=== PATIENT | female | born 1970 | race Caucasian/White ===

== ENCOUNTER 2021-02-17 11:06 | Emergency (ER) | payer OTHER ==
--- OUTSIDE RECORDS SUMMARY | 2021-02-17 11:11 | XMS REPORT | Continuity of Care Document ---
:1970 Author Organization [facility] t Address [address] [place] [address] Care Team Providers Name Role Phone NO Primary Care Physician Unavailable Madisyn CONTRERAS, F Attending Clinician Margie HALL Attending Clinician Unavailable Gisel Betts MD Attending Clinician Gisel BETTS Attending Clinician Unavailable Isaiah PINEDA Attending Clinician Unavailable Payers Payer Name Policy Type Policy Number Effective Date Expiration Date S ource Problems Condition Condition Condition Status Onset Resolution Last Treating Co mments Source Name Details Category Date Date Treatment Clinician Date No known No known Disease Unive rs active active ity of problems problems [facility] Allergies, Adverse Reactions, Alerts Allergy Allergy Status Severity Reaction(s) Onset Inactive Treating Comm ents Source Name Type Date Date Clinician Ibuprofe Propensi Active Rash Univer s n ty to 03-03 ity of adverse 00:00: [place] reaction 00 [facility] IBUPROFE DRUG Active Rash Univers N INGREDI 03-03 ity of 00:00: [place] 00 [facility] NO KNOWN Drug Active Univers ALLERGIE Class ity of S [facility] Social History Social Habit Start Date Stop Date Quantity Comments Source Sex Assigned At Universit y of [facility] Exposure to Not sure [place] of SARS-CoV-2 (event) [facility] Cigarettes smoked 2020-03-03 2020-03-03 Univers ity of current (pack per 00:00:00 00:00:00 ) - Reported Branch Cigarette 2020-03-03 2020-03-03 University of pack-years 00:00:00 00:00:00 [facility] Tobacco use and 2020-03-03 2020-03-03 Former user Universi ty of exposure 00:00:00 00:00:00 [facility] Alcohol intake 2020-03-03 2020-03-03 Ex-drinker [facility] 00:00:00 00:00:00 (finding) [facility] Smoking Status Start Date Stop Date Source Current every day smoker 2020-03-03 00:00:00 Uni versity [facility] [place] [facility] Medications Ordered Filled Start Stop Current Ordering Indication Dosage Frequency Signature Comments Components Source Medication Medication Date Date Medication? Clinician (SIG) Name Name benzonatate Yes [id number] 100mg Take 1 Univers 100 mg 1-22 capsule by ity of capsule 00:00: mouth 3 [place] 00 (three) Medical times Branch daily as needed for Cough. albuterol Yes [id number] 2{puff} Inhale 2 Univers 90 1-22 Puffs ity of mcg/actuati 00:00: every 4 [place] as on inhaler 00 (four) Medical hours as Branch needed for Wheezing or Shortness of Breath. diphenhydrA 2020- No 25mg 25 mg, Uni vers MINE 09-10 Slow IV ity of (BENADRYL) 17:45: 16:36 Push, [place] injection 00 :00 ONCE, 1 Medical 25 mg dose, Sat Branch 09/11/19 at 1245, STAT haloperidol 2020- No 2.5mg 2.5 mg, U nivers lactate 09-10 Intravenou ity o f (HALDOL) 17:45: 16:41 [place], [place]CE[place] 1 [place] :[place] dose, Sat Medic al 2.5 mg 09/11/19 at Branch 1245, STAT famotidine 2020- No 20mg 20 mg, IV U nivers (PEPCID 09-10 Piggyback, ity o f (PF)) 16:45: 16:37 ONCE, 1 [place] injection 00 :00 dose, Sat Medic al 20 mg 09/11/19 at Branch 1145, GAGE NaCl 0.9% 2020- No 1000mL at 999 Uni vers (NS) bolus 09-10 mL/hr, ity of infusion 16:45: 18:00 1,000 mL, [place] as 1,000 mL 00 :00 IV Medical Infusion, Branch ONCE, 1 dose, 09/11/19 at 1145, GAGE buprenorphi 2019- Yes 16mg Place 16 Un keon ne-naloxone 8-01 mg under ity of 8-2 mg 16:34: the tongue [place] sublingual 41 daily. Medical film Branch cloNIDine 2020-0 Yes .2mg Take 0.2 Univ ers 0.2 mg 8-01 mg by ity of tablet 16:34: mouth 2 [place] 41 (two) Medical times Branch daily. QUEtiapine 2020-0 Yes 50mg Take 50 mg U nivers 50 mg 8-01 by mouth ity of tablet 16:34: daily. [place] [address] Medical Branch mirtazapine 2020-0 Yes 15mg Take 15 mg Univers 15 mg 8-01 by mouth ity of tablet 16:34: at [place] [address] bedtime. Medical Branch lithium 2020-0 Yes 900mg Take 900 Unive rs carbonate 8-01 mg by ity of 300 mg 16:34: mouth [place] tablet 41 daily. Medical Branch venlafaxine 2020-0 Yes 37.5mg Take 37.5 Univers XR 37.5 mg 8-01 mg by ity of 24 hr 16:34: mouth [place] capsule 41 daily with Medica l breakfast. Branch LORazepam 2020-0 Yes .5mg Take 0.5 Univ ers 0.5 mg 8-01 mg by ity of tablet 16:34: mouth 2 [place] 41 (two) Medical times Branch daily. haloperidol 2020-0 Yes .5mg Take 0.5 Un keon 0.5 mg 8-01 mg by ity of tablet 16:34: mouth [place] 41 daily. Medical Branch buprenorphi 2020-[address] 16 Un keon ne-naloxone 8-01 mg under ity of 8-2 mg 16:34: the tongue [place] sublingual 41 daily. Medical film Branch cloNIDine 2020-0 Yes .2mg Take 0.2 Univ ers 0.2 mg 8-01 mg by ity of tablet 16:34: mouth 2 [place] 41 (two) Medical times Branch daily. QUEtiapine 2020-0 Yes 50mg Take 50 mg U nivers 50 mg 8-01 by mouth ity of tablet 16:34: daily. [place] [address] Medical Branch mirtazapine 2020-0 Yes 15mg Take 15 mg Univers 15 mg 8-01 by mouth ity of tablet 16:34: at [place] [address] bedtime. Medical Branch lithium 2020-0 Yes 900mg Take 900 Unive rs carbonate 8-01 mg by ity of 300 mg 16:34: mouth [place] tablet 41 daily. Medical Branch venlafaxine 2020-0 Yes 37.5mg Take 37.5 Univers XR 37.5 mg 8-01 mg by ity of 24 hr 16:34: mouth [place] capsule 41 daily with Medica l breakfast. Branch LORazepam 2020-0 Yes .5mg Take 0.5 Univ ers 0.5 mg 8-01 mg by ity of tablet 16:34: mouth 2 [place] 41 (two) Medical times Branch daily. haloperidol 2020-0 Yes .5mg Take 0.5 Un keon 0.5 mg 8-01 mg by ity of tablet 16:34: mouth [place] 41 daily. Medical Branch famotidine 2020-0 Yes [id number] 20mg Take 1 Univers 20 mg 8-01 tablet by ity of tablet 00:00: mouth 2 [place] 00 (two) Medical times Branch daily. proMETHazin 2020-0 Yes [id number] 25mg Take 1 Univers e 25 mg 8-01 tablet by ity of tablet 00:00: mouth [place] 00 every 6 Medical (six) Branch hours as needed for Nausea and Vomiting (N/V). famotidine 2020-0 Yes [id number] 20mg Take 1 Univers 20 mg 8-01 tablet by ity of tablet 00:00: mouth 2 [place] 00 (two) Medical times Branch daily. proMETHazin 2020-0 Yes [id number] 25mg Take 1 Univers e 25 mg 8-01 tablet by ity of tablet 00:00: mouth [place] 00 every 6 Medical (six) Branch hours as needed for Nausea and Vomiting (N/V). Cefdinir Cefdinir 2019-0 Yes Grant L [address] [facility] (Omnicef) (Omnicef) 8 Mohan Supervisor Insecticide [facility] - 300 Mg 300 Mg 00:00: Patient Capsule Capsule 00 [facility] Ondansetron Ondansetron 2019-0 Yes Grant L [address] [facility] Hcl Hcl 8-04 Mohan Supervisor Insecticide Hours as [facility] - (Zofran*) 4 (Zofran*) 4 00:00: needed for Patient Mg Tablet Mg Tablet 00 Nausea [facility] Benztropine Benztropine Yes [address] [facility] Mesylate 2 Mesylate 2 Day Mery es - Mg Tablet Mg Tablet Patie nt [facility] Buprenorphi Buprenorphi Yes [address] [facility] - Hcl/Naloxon Hcl/Naloxon P atient e Hcl e Hcl s (Suboxone 8 (Suboxone 8 M edical Mg-2 Mg Sl Mg-[address] Film) 1 Film) 1 Each Film Each Film Clonidine Clonidine Yes [address] [facility] Hcl 0.1 Mg Hcl 0.1 Mg Day Mery es - Tablet Tablet Patient [facility] Keener Keener Yes [address] [facility] Carbonate Carbonate [facility] - 450 Mg 450 Mg Patient Tablet.er Tablet.er s Medical [place] Mirtazapine Mirtazapine Yes [address] [facility] (Remeron) (Remeron) [facility] - 15 Mg 15 Mg Patient Tablet [facility]t [facility] Oxcarbazepi Oxcarbazepi Yes [address] [facility] - (Trileptal) (Trileptal) P atient 300 Mg 300 Mg s Tablet [facility] Quetiapine Quetiapine Yes [address] [facility] Fumarate Fumarate [facility] - (Seroquel) (Seroquel) Pat ient 25 Mg 25 Mg s Tablet Tablet Medical [place] Vital Signs Vital Name Observation Time Observation Value Comments Source Systolic blood 2020-03-03 18:05:00 130 mm[Hg[facility]astolic blood 2020-03-03 18:05:00 89 mm[Hg] Unive [facility] Heart rate 2020-03-03 18:05:00 99 /min [facility] Respiratory rate 2020-03-03 18:05:00 17 /min [facility] Oxygen saturation in 2020-03-03 18:05:00 99 /min [facility] Arterial blood by [facility] Pulse oximetry Branch Body temperature 2020-03-03 15:55:00 37.06 Leida [facility] Body weight 2020-03-03 15:53:00 54.432 kg [facility] Systolic blood 2019-09-11 17:07:31 137 mm[Hg] Univer sity [facility] Diastolic blood 2019-09-11 17:07:31 91 mm[Hg] Unive [facility] Heart rate 2019-09-11 17:07:31 98 /min [facility] Body temperature 2019-09-11 17:07:31 37.17 Leida [facility] Respiratory rate 2019-09-11 17:07:31 22 /min [facility] Oxygen saturation in 2019-09-11 17:07:31 98 /min [facility] Arterial blood by [facility] Pulse oximetry Branch Body weight 2019-09-11 16:34:00 50 kg [facility] Procedures Procedure Date / Time Performed Performing Clinician Sourc e XR CHEST 2 VW 2020-03-03 16:39:10 Juanis Hall [facility] POCT TEST 2020-03-03 16:16:00 Juanis Hall [facility] COVID-19 (ID NOW RAPID 2020-03-03 16:16:00 [facility] CBC WITH DIFF 2019-09-11 17:23:[address] [facility] TROPONIN I 2019-09-11 17:01:[address] [facility] XR ABDOMEN ACUTE 2019-09-11 16:59:22 Yasmin Betts [facility] SERIES [facility] EKG-12 LEAD 2019-09-11 16:49:[address] [facility] LIPASE 2019-09-11 16:42:[address] [facility] TEST, SERUM 2019-09-11 16:42:00 Yasmin Betts [facility] HEPATIC FUNCTION PANEL 2019-09-11 16:42:00 Yasmin Betts [facility] ([id number]) Medical [place] (ALB,T.PRO,BILI T,BU/BC,ALT,AST,ALK PHOS) BASIC METABOLIC PANEL 2019-09-11 16:42:00 Yasmin Betts [facility] (NA, K, CL, CO2, Medical Branch GLUCOSE, BUN, CREATININE, CA) LITHIUM 2019-09-11 16:42:[address] [facility] Computed tomography of 2018-09-13 00:00:[address] [facility] - abdomen and pelvis Patients [facility] with contrast Center Encounters Start End Encounter Admission Attending Care Care Encounter Source Date/Time Date/Time Type Type Clinicians Facility Department ID 2020-03-03 2020-03-03 Emergency Ibikunle, TRAUMA [id number] Univers 09:55:00 12:07:00 Folusho F CENTER [id number] [place] [id number] [place] [address] Branch 2020-03-03 2020-03-03 Emergency X IBJUNIOR, [facility] ERT [id number] Univers 09:55:00 09:55:00 FOLUSHO ity of [facility] 2019-09-11 2019-09-11 Emergency Yasmin Betts TRAUMA [id number] Univers 11:27:00 14:04:00 W CENTER [id number] [place] [id number] [place] [address] Branch 2019-09-11 2019-09-11 Emergency X YASMIN BETTS [facility] ERT [id number] Univers 11:27:00 11:27:00 ity of [facility] 2018-09-13 2018-09-13 Departed 1 [facility] [id number] [facility] [facility] 11:09:00 18:00:00 Emergency LAIRD 94 Luke s - Room Patient s [facility] Center Results Test Description Test Time Test Comments Results Result Comments Source COVID-19 (ID NOW RAPID TESTING) 2020-03-03 17:05:00 Test Item Value Reference Range Interpretation Comme nts SARS-CoV-2 Rapid ID NOW (test code Not Detected Not Detected = 00965-0) SHALOM (test code = SHALOM) ID NOW COVID-19 Assay is an isothermal nucleic acid amplification test intended for the qualitative detection of nucleic acid from SARS-CoV-2 viral RNA in nasopharyngeal ([employer]) specimens. It is used under Emergency Use Authorization (EUA) by FDA. The limit of detection (LOD) of the assay is 125 Genome Equivalents/mL. A positive result is indicative of the presence of SARS-CoV-2 RNA. ?Clinical correlation with patient history and other diagnostic information is necessary to determine patient infection status. A negative (Not Detected) result does not preclude SARS-CoV-2 infection. In patients with clinical symptoms and other tests that are consistent with SARS-CoV-2 infection, negative results should be treated as presumptive negative and a new specimen should be tested with alternative PCR molecular test. Invalid: Please collect a new specimen for repeat patient testing if clinically indicated. Lab Interpretation (test code = Normal 40193-7) [place] [facility] [id number] 16:16:00 Test Item Value Reference Range Interpretation Comments POCT PREG (test code = 1605) negative On board controls acceptable with present C Line (test code = 3574) POCT PREG LOT # (test code = 3575) [id number] POCT PREG TEST DATE (test 10/10/2021 code = 3576) Lab Interpretation (test code = Normal 25696-2) [place] [facility] Abdomen [id number] 18:23:32 No acute cardiopulmonary process. Nonobstructive bowel gas pattern. XR ABDOMEN ACUTE SERIES HISTORY: vomiting, eval for obstruction COMPARISON: None available. FINDINGS: Chest: Lungs are mildly hyperinflated. No focal consolidation identified.There may be trace right-sided effusion. No effusion seen on the left. Nopneumothorax identified. Cardiac silhouette normal in size. Atherosclerotic calcification is notedin the aortic arch. Trachea is near midline. Abdomen: Bowel gas pattern is nonobstructive. No free air under thediaphragm. Mild gaseous distention of small bowel loops is noted in thepelvi s. There is fecal material noted throughout the colon, probablymoderate fecal burden. Cholecystectomy clips seen in the right upper quadrant. No suspiciouscalcification identified. [facility], Radiant Results Inft User - 09/11/2019 1:24 PM CDTXR ABDOMEN ACUTE SERIESHISTORY: vomiting, eval for obstruction CO MPARISON: None available.FINDINGS:Chest: Lungs are mildly hyperinflated. No focal consolidation identified.There may be trace right-sided effusion. No effusion seen on the left. Nopneumothorax identified.Cardiac silhouette normal in size. Atherosclerotic calcification is notedin the aortic arch. Trachea is near midline.Abdomen: Bowel gas pattern is nonobstructive. No free air under thediaphragm. Mildgaseous distention of small bowel loops is noted in thepelvis. There is fecal material noted throughout the colon, probablymoderate fecal burden.Cholecystectomy clips seen in the right upper quadrant. No suspiciouscalcification identified.IMPRESSIONNo acute cardiopulmonary process.Nonobstructive bowelgas pattern.[facility] Troponin [id number] 17:47:00 Test Item Value Reference Range Interpretation Comments TROPONIN I (test 0.013 ng/mL See_Comment [Automated code = 1477255465) message] The system which generated this result transmitted reference range : <=0.034. The reference range was not used to interpret this result as normal/abnormal . SHALOM (test code = Equal or Less than SHALOM) 0.034 ng/ml---Normal ?Note: Cardiac troponin begins to rise 3-4 hours after the onset of ischemia. Repeat in 4-6 hours if the sample was drawn within 3-4 hours of the onset of the symptom and found normal. Between 0.035 and 0.120 ng/mL--- Borderline. Questionable myocardial injury or necrosis ? ?Note: Serial measurement may be necessary to confirm or exclude the diagnosis of myocardial injury or necrosis; Clinical correlation (symptoms, EKGs, imaging studies, and others) required; Repeat in 4-6 hours if clinically indicated. ? Equal or Higher than 0.121 ng/mL---Abnormal. Myocardial Injury or Necrosis Likely ? Biotin has been reported to cause a negative bias, interpret results relative to patient's use of biotin. ? Lab Interpretation Normal (test code = 61235-2) [place] [facility]neCB with [id number] 17:39:00 Test Item Value Reference Range Interpretation Comments WBC (test code = See_Comment [Automated 1490-2) message] The sy stem which generated this result transmitted reference range : 4.30 - 11.10 10*3/?L. The reference range was not used to interpret this result as normal/abnormal . RBC (test code = See_Comment [Automated 789-8) message] The sy stem which generated this result transmitted reference range : 3.93 - 5.25 10*6/?L. The reference range was not used to interpret this result as normal/abnormal . HGB (test code = 16.6 g/dL 11.6-15 H 718-7) HCT (test code = 47.7 % 35.7-45.2 H 4544-3) MCV (test code = 91.2 fL 80.6-95.5 787-2) MCH (test code = 31.7 pg 25.9-32.8 785-6) MCHC (test code = 34.8 g/dL 31.6-35.1 786-4) RDW-SD (test code = 43.0 fL 39-49.9 62808-5) RDW-CV (test code = 12.9 % 12-15.5 788-0) PLT (test code = See_Comment [Automated 777-3) message] The sy stem which generated this result transmitted reference range : 166 - 358 10*3/ ?L. The reference r jenn was not used to interpret this result as normal/abnormal . MPV (test code = 11.7 fL 9.5-12.9 25577-1) NRBC/100 WBC (test See_Comment [Automat ed code = 0735417805) message] The system which generated this result transmitted reference range : 0.0 - 10.0 /100 WBCs. The refer ence range was not u sed to interpret th is result as normal/abnormal . NRBC x10^3 (test code <0.01 See_Comment [Auto mated = 2276834514) message] The s ystem which generated this result transmitted reference range : 10*3/?L. The reference range was not used to interpret this result as normal/abnormal . GRAN MAT (NEUT) % 73.1 % (test code = 770-8) IMM GRAN % (test code 0.20 % = 3183614989) LYMPH % (test code = 17.1 % 736-9) MONO % (test code = 8.2 % 5905-5) EOS % (test code = 0.6 % 713-8) BASO % (test code = 0.8 % 706-2) GRAN MAT x10^3(ANC) 6.47 10*3/uL 1.88-7.09 (test code = 0425129799) IMM GRAN x10^3 (test <0.03 0-0.06 code = 8776302818) LYMPH x10^3 (test code 1.51 10*3/uL 1.32-3.29 = 731-0) MONO x10^3 (test code 0.73 10*3/uL 0.33-0.92 = 742-7) EOS x10^3 (test code = 0.05 10*3/uL 0.03-0.39 711-2) BASO x10^3 (test code 0.07 10*3/uL 0.01-0.07 = 704-7) Lab Interpretation Abnormal (test code = 18780-5) [place] [facility]2020-08-01 17:34:00 Test Item Value Reference Range Interpretation Comments Keener (test code = <0.2 0.6-1.2 L 8320801835) SHALOM (test code = SHALOM) Toxic Range: ? Greater than 1.2 mmol/L Lab Interpretation (test Abnormal code = 30193-3) [place] [facility]neHepatic Function Panel (ALB, T.PRO, BILI T, BU/BC, ALT, AST, ALK PHOS)2019-09-11 17:20:00 Test Item Value Reference Range Interpretation Comments TOTAL BILI (test code = 8456608928) 0.6 mg/dL 0.1-1.1 BILI UNCON (test code = 4040894100) 0.7 mg/dL 0.1-1.1 BILI CONJ (test code = 5255370795) 0.0 mg/dL 0-0.3 T PROTEIN (test code = 1255152211) 7.9 g/dL 6.3-8.2 ALBUMIN (test code = 4588237228) 4.9 g/dL 3.5-5 ALK PHOS (test code = 0283831347) 106 U/L 34-122 ALTv (test code = 1742-6) 70 U/L 5-35 H AST(SGOT) (test code = 8270790778) 85 U/L 13-40 H Lab Interpretation (test code = Abnormal 08853-7) [place] [facility] Met[facility] Panel (NA, K, CL, CO2, GLUCOSE, BUN, CREATININE, CA)2019-09-11 17:20:00 Test Item Value Reference Range Interpretation Comments NA (test code = 137 mmol/L 135-145 7963817142) K (test code = 4.2 mmol/L 3.5-5 3306320559) CL (test code = 105 mmol/L 98-108 8243374053) CO2 TOTAL (test code = 26 mmol/L 23-31 5668198910) AGAP (test code = 2-16 6158770585) BUN (test code = 15 mg/dL 7-23 1762207352) GLUCOSE (test code = 127 mg/dL 70-110 H 7612285603) CREATININE (test code = 0.55 mg/dL 0.5-1.04 7373904319) CALCIUM (test code = 10.4 mg/dL 8.6-10.6 5064330528) eGFR Calculation mL/min/1.73m2 (Non-) (test code = 6949867691) eGFR Calculation mL/min/1.73m2 () (test code = 1720929596) SHALOM (test code = SHALOM) Association of Glomerular Filtration Rate (GFR) and Staging of Kidney Disease* + --+ --+ ------+| GFR (mL/min/1.73 m2) ?| With Kidney Damage ?| ?Without Kidney Damage+ --------+ --------+ +| ?>90 ?| ?Stage one ?| ? Normal ?+ ---+ ---+ -------+| ?60-89 ?| ?Stage two ?| ? Decreased GFR ? + --+ --+ ------+| ?30-59 ?| ?Stage three ?| ? Stage three ? + --+ --+ ------+| ?15-29 ?| ?Stage four ? | ? Stage four ?+ ---+ ---+ -------+| ?<15 (or dialysis) ? ?| ?Stage five ? | ? Stage five ?+ ---+ ---+ -------+ *Each stage assumes the associated GFR level has been in effect for at least three months. ?Stages 1 to 5, with or without kidney disease, indicate chronic kidney disease. Notes: Determination of stages one and two (with eGFR >59mL/min/1.73 m2) requires estimation of kidney damage for at least three months as defined by structural or functional abnormalities of the kidney, manifested by either:Pathological abnormalities or Markers of kidney damage (including abnormalities in the composition of the blood or urine or abnormalities in imaging tests). Lab Interpretation Abnormal (test code = 95676-6) [place] [facility]neLipase [id number] 17:20:00 Test Item Value Reference Range Interpretation Comments LIPASE (test code = 3204095425) 106 U/L 0-220 Lab Interpretation (test code = Normal 91426-7) [place] [facility]nePregnancy Test, [id number] 17:15:00 Test Item Value Reference Range Interpretation Comments PREG SERUM (test code Negative = 7560824990) SHALOM (test code = SHALOM) Less than 10 IU/L. ?If low titer or ectopic is suspected, resubmit specimen in 48-72 hours. [facility] SINGLE (PORTABLE)2018-09-13 16:05:00 [place] [address] Patient Name: CECI GRAHAM MR #: [id number] : 1970 Age/Sex: 48/F Req #: [id number] Adm Physician: Ordered by: GRANT MOHAN [employer] Report #: [id number] Location: ER Room/Bed: Procedure: [id number] DX/CHEST SINGLE (PORTABLE) Exam Date: 09/13/18 Exam Time: 1514 REPORT STATUS: Signed EXAMINATION: CHEST SINGLE (PORTABLE) INDICATION: cough, rule out pneumonia [id number] COMPARISON: None FINDINGS: PA and lateral views TUBES and LINES: None. LUNGS: Lungs are well inflated. Thereis no evidence of pneumonia or pulmonary edema. PLEURA: Trace blunting of the right lateral costophrenic angle. No pneumothorax. HEART AND MEDIASTINUM: The cardiomediastinal silhouette is unremarkable.. BONES AND SOFT TISSUES: No focal osseous lesions. Soft tissues are unrem arkable. UPPER ABDOMEN: No free air under the diaphragm. IMPRESSION: Trace blunting ofthe right lateral costophrenic angle may be the result of developing pleural effusion. No infiltrates. Signed by: Dr. Celestina Polanco MD on 09/13/2018 4:07 PM Dictated By: CELESTINA POLANCO MD 06 Transcribed By: BENI on 09/13/181606 COPY TO: GRANT MOHAN NPCT ABDOMEN/PELVIS W 2018-09-13 14:45:00 [place] [address] Patient Name: CECI GRAHAM MR #: [id number] : 1970 Age/Sex: 48/F Req #: [id number] Adm Physician: Ordered by: GRANT MOHAN [employer] Report #: [id number] Location: ER Room/Bed: Procedure: [id number] CT/CT ABDOMEN/PELVIS W Exam Date: 09/13/18 Exam Time: 1415 REPORT STATUS: Signed ADDENDUM #1 Subcentimeter air cyst in the right lower lobe. Signed by: Dr. Celestina Polanco MD on 09/13/2018 4:[address] Abdomen And Pelvis with Intravenous Contrast INDICATION: Nausea, vomiting upper abdominal pain, n/v/d, rule out colitis [id number] TECHNIQUE: Thin collimation axial images obtained from the diaphragm to the level of the pubic symphysisfollowing the uneventful administration of 100 cc of low osmolar, nonionic intravenous contrast. Dose reduction techniques used: Automated exposure control, adjustment of the mAs and/or kVp according to patient size, standardized low- dose protocol, and/or iterative reconstruction technique. RADIATION DOSE: Total DLP: 170.33 mGy*cm Estimated effective dose: (DLP x0.015 x size factor) mSv CTDIvol has been reviewed. It is below the limits set by the Radiation Protocol Committee (RPC). COMPARISON: None. ABDOMEN FINDINGS: Lung Bases: Clear. The visualized portions of the mediastinum are normal.. Liver: Mildly decreased attenuation suggestive of steatosis. No evidence for mass. Gallbladder: Absent. No biliary ductal dilatation. Pancreas: Normal attenuation without mass or ductal dilatation. Divisum morphology of the pancreas duct. Spleen: Normal in size. No evidence of mass. Adrenal Glands: No evidence formass. Kidneys: Right: Normal enhancement. No soft tissue mass. No hydronephrosis. Left: Normal enhancement. No soft tissue mass. No hydronephrosis. Lymph Nodes: No enlarged abdominal or retroperitoneal lymph nodes.. Aorta: Normal in diameter with scattered calcifications PELVIS FINDINGS: Bowel: Stomach: Normal. Small Bowel: Normal in caliber with normal wall thickness. Large Bowel: Normal in caliber with normal wall thickness. Appendix: Normal appendix. Bladder: Normal. The uterus is absent. No adnexal mass. Peritoneum/or peritoneum: No free fluid or fluid collection. Bones: No focal osseous lesions. IMPRESSION: 1. No evidence for bowel obstruction or inflammation. Normal appendix. 2. Status post cholecys tectomy and hysterectomy. 3. Pancreas divisum. 4. Steatosis. Signed by: Dr. Celestina Polanco MD on 09/13/2018 2:49 PM Dictated By: CELESTINA POLANCO MD 1602 Transcribed By: BENI on 09/13/18 4854 COPY TO: GRANT MOHAN NPSodium [id number] 12:25:00 Test Item Value Reference Range Interpretation Comments Sodium Level (test code = 2951-2) 139 136-145 [facility] [id number] 12:25:00 Test Item Value Reference Range Interpretation Comments Potassium Level (test code = 2823-3) 3.3 3.5-5.1 L [facility]iscoChloride [id number] 12:25:00 Test Item Value Reference Range Interpretation Comments Chloride Level (test code = 2075-0) 103 98-107 [facility] FriscoCarbon Dioxide [id number] 12:25:00 Test Item Value Reference Range Interpretation Comments Carbon Dioxide Level (test code = 22 -8-9) [facility] FriscoAnion [id number] 12:25:00 Test Item Value Reference Range Interpretation Comments Anion Gap (test code = 21388-0) 17.3 8-16 H [facility] FriscoBlood Urea [id number] 12:25:00 Test Item Value Reference Range Interpretation Comments Blood Urea Nitrogen (test code = 09-04 3094-0) [facility]iscoCreatinine2019-08-04 12:25:00 Test Item Value Reference Range Interpretation Comments Creatinine (test code = 2160-0) 0.78 0.57-1.11 [facility]iscoBUN/Creatinine [id number] 12:25:00 Test Item Value Reference Range Interpretation Comments BUN/Creatinine Ratio (test code = 08-04 3097-3) [facility] FriscoEstimat Glomerular Filtration Rate 2018-09-13 12:25:00 Test Item Value Reference Range Interpretation Comments Estimat Glomerular Filtration Rate > 60 >60 (test code = 753575460) Ranges were taken from the National Kidney Disease Education Program and the National Kidney Foundation literature.Reference ranges:60 or greater: Ajywbl15- 59 (for 3 consecutive months): Chronic kidneydisease 15 or less: Kidney failure [facility] FriscoGlucose [id number] 12:25:00 Test Item Value Reference Range Interpretation Comments Glucose Level (test code = LIB9787) 143 74-118 H [facility] FriscoCalcium [id number] 12:25:00 Test Item Value Reference Range Interpretation Comments Calcium Level (test code = 39200-6) 10.1 8.4-10.2 [facility] FriscoMagnesium [id number] 12:25:00 Test Item Value Reference Range Interpretation Comments Magnesium Level (test code = 63211-5) 2.3 1.3-2.1 H [facility]iscoT[facility] [id number] 12:25:00 Test Item Value Reference Range Interpretation Comments Total Bilirubin (test code = 1975-2) 0.7 0.2-1.2 [facility] FriscoAspartate Amino Transf (AST/SGOT) 2018-09-13 12:25:00 Test Item Value Reference Range Interpretation Comments Aspartate Amino Transf (AST/SGOT) (test 24 5-34 code = Aspartate Amino Transf (AST/SGOT)) [facility] FriscoAlanine Aminotransferase (ALT/SGPT) 2018-09-13 12:25:00 Test Item Value Reference Range Interpretation Comments Alanine Aminotransferase (ALT/SGPT) 24 0-55 (test code = 1742-6) [facility] FriscoTotal [id number] 12:25:00 Test Item Value Reference Range Interpretation Comments Total Protein (test code = 2885-2) 7.2 6.5-8.1 [facility] FriscoAlbumin2019-08-04 12:25:00 Test Item Value Reference Range Interpretation Comments Albumin (test code = 1751-7) 4.2 3.5-5.0 [facility] FriscoGlobulin2019-08-04 12:25:00 Test Item Value Reference Range Interpretation Comments Globulin (test code = 07687-8) 3.0 2.3-3.5 [facility] FriscoAlbumin/Globulin [id number] 12:25:00 Test Item Value Reference Range Interpretation Comments Albumin/Globulin Ratio (test code = 1.4 0.8-2.0 1759-0) [facility] FriscoAlkaline Ojfbtlpmkik2733-92-76 12:25:00 Test Item Value Reference Range Interpretation Comments Alkaline Phosphatase (test code = 81 40-150 6768-6) [facility] FriscoAmylase [id number] 12:25:00 Test Item Value Reference Range Interpretation Comments Amylase Level (test code = 1798-8) 84 25-125 [facility] FriscoLipase2019-08-04 12:25:00 Test Item Value Reference Range Interpretation Comments Lipase (test code = 3040-3) 18 8-78 [facility] FriscoUrine Pmnhc1824-35-09 11:53:00 Test Item Value Reference Range Interpretation Comments Urine Color (test code = 5778-6) YELLOW YELLOW [facility] FriscoUrine [id number] 11:53:00 Test Item Value Reference Range Interpretation Comments Urine Clarity (test code = 09154-6) SL CLOUDY CLEAR [facility] Specific [id number] 11:53:00 Test Item Value Reference Range Interpretation Comments Urine Specific Mousie (test code = 1.015 1.010-1.025 5811-5) [facility]iscoUrine [id number] 11:53:00 Test Item Value Reference Range Interpretation Comments Urine pH (test code = 55455-5) 7 5-7 [facility]iscoUrine Leukocyte [id number] 11:53:00 Test Item Value Reference Range Interpretation Comments Urine Leukocyte Esterase (test code NEGATIVE NEGATIVE = 5799-2) [facility]iscoUrine Blulvkr4665-90-47 11:53:00 Test Item Value Reference Range Interpretation Comments Urine Nitrite (test code = 34041-6) NEGATIVE NEGATIVE [facility] FriscoUrine [id number] 11:53:00 Test Item Value Reference Range Interpretation Comments Urine Protein (test code = 5804-0) 2+ NEGATIVE H [facility] FriscoUrine Glucose (UA)2018-09-13 11:53:00 Test Item Value Reference Range Interpretation Comments Urine Glucose (UA) (test code = NEGATIVE NEGATIVE 2349-9) [facility]iscoUrine [id number] 11:53:00 Test Item Value Reference Range Interpretation Comments Urine Ketones (test code = 05458-5) NEGATIVE NEGATIVE [facility] Npftjtevslkx4032-08-53 11:53:00 Test Item Value Reference Range Interpretation Comments Urine Urobilinogen (test code = 0.2 0.2-1 16862-1) [facility] FriscoUrine Uqbvvqvqx1378-65-18 11:53:00 Test Item Value Reference Range Interpretation Comments Urine Bilirubin (test code = 1978-6) NEGATIVE NEGATIVE [facility] FriscoUrine [id number] 11:53:00 Test Item Value Reference Range Interpretation Comments Urine Blood (test code = 92217-2) TRACE NEGATIVE H [facility] FriscoUrine [id number] 11:53:00 Test Item Value Reference Range Interpretation Comments Urine WBC (test code = 5821-4) 11-20 0-5 H [facility] FriscoUrine [id number] 11:53:00 Test Item Value Reference Range Interpretation Comments Urine RBC (test code = 40044-3) 11-20 0-5 H [facility]iscoUrine Vqouvkhj5757-95-07 11:53:00 Test Item Value Reference Range Interpretation Comments Urine Bacteria (test code = 95175-4) FEW NONE [facility] FriscoUrine Epithelial [id number] 11:53:00 Test Item Value Reference Range Interpretation Comments Urine Epithelial Cells (test code = FEW NONE 81677-2) [facility] FriscoUrine [id number] 11:53:00 Test Item Value Reference Range Interpretation Comments Urine Test (test code = NEGATIVE NEGATIVE 6-3) [facility] FriscoMean Corpuscular Hemoglobin Concent 2018-09-13 11:45:00 Test Item Value Reference Range Interpretation Comments Mean Corpuscular Hemoglobin Concent 35.1 31-35 H (test code = 786-4) [facility] FriscoRed Cell Distribution Apzcy1441-03-03 11:45:00 Test Item Value Reference Range Interpretation Comments Red Cell Distribution Width (test code 13.5 11.7-14.4 = 78468-7) [facility] FriscoPlatelet [id number] 11:45:00 Test Item Value Reference Range Interpretation Comments Platelet Count (test code = 777-3) 318 140-360 [facility] FriscoNeutrophils (%) (Auto)2018-09-13 11:45:00 Test Item Value Reference Range Interpretation Comments Neutrophils (%) (Auto) (test code = 81.5 38.7-80.0 H 50858-3) [facility] FriscoLymphocytes (%) (Auto)2018-09-13 11:45:00 Test Item Value Reference Range Interpretation Comments Lymphocytes (%) (Auto) (test code = 9.7 18.0-39.1 L 736-9) [facility] FriscoMonocytes (%) (Auto)2018-09-13 11:45:00 Test Item Value Reference Range Interpretation Comments Monocytes (%) (Auto) (test code = 7.9 4.4-11.3 5905-5) [facility] FriscoEosinophils (%) (Auto)2018-09-13 11:45:00 Test Item Value Reference Range Interpretation Comments Eosinophils (%) (Auto) (test code = 0.0 0.0-6.0 713-8) [facility] FriscoBasophils (%) (Auto)2018-09-13 11:45:00 Test Item Value Reference Range Interpretation Comments Basophils (%) (Auto) (test code = 0.3 0.0-1.0 706-2) [facility] FriscoIM GRANULOCYTES %2018-09-13 11:45:00 Test Item Value Reference Range Interpretation Comments IM GRANULOCYTES % (test code = IM 0.6 0.0-1.0 GRANULOCYTES %) [facility] FriscoNeutrophils # (Auto)2018-09-13 11:45:00 Test Item Value Reference Range Interpretation Comments Neutrophils # (Auto) (test code = 15.3 2.1-6.9 H 751-8) [facility] FriscoLymphocytes # (Auto)2018-09-13 11:45:00 Test Item Value Reference Range Interpretation Comments Lymphocytes # (Auto) (test code = 1.8 1.0-3.2 91115-4) [facility] FriscoMonocytes # (Auto)2018-09-13 11:45:00 Test Item Value Reference Range Interpretation Comments Monocytes # (Auto) (test code = 742-7) 1.5 0.2-0.8 H [facility] FriscoEosinophils # (Auto)2018-09-13 11:45:00 Test Item Value Reference Range Interpretation Comments Eosinophils # (Auto) (test code = 0.0 0.0-0.4 711-2) [facility] FriscoBasophils # (Auto)2018-09-13 11:45:00 Test Item Value Reference Range Interpretation Comments Basophils # (Auto) (test code = 704-7) 0.1 0.0-0.1 [facility] FriscoAbsolute Immature Granulocyte (auto 2018-09-13 11:45:00 Test Item Value Reference Range Interpretation Comments Absolute Immature Granulocyte (auto 0.12 0-0.1 H (test code = Absolute Immature Granulocyte (auto) [facility] FriscoWhite Blood [id number] 11:45:00 Test Item Value Reference Range Interpretation Comments White Blood Count (test code = 6690-2) 18.82 4.8-10.8 H [facility] FriscoRed Blood [id number] 11:45:00 Test Item Value Reference Range Interpretation Comments Red Blood Count (test code = 789-8) 5.30 3.6-5.1 H [facility] FriscoHemoglobin2019-08-04 11:45:00 Test Item Value Reference Range Interpretation Comments Hemoglobin (test code = 20971-3) 16.2 12.0-16.0 H [facility] FriscoHematocrit2019-08-04 11:45:00 Test Item Value Reference Range Interpretation Comments Hematocrit (test code = 4544-3) 46.1 34.2-44.1 H [facility] FriscoMean Corpuscular [id number] 11:45:00 Test Item Value Reference Range Interpretation Comments Mean Corpuscular Volume (test code = 87.0 81-99 787-2) [facility] FriscoMean Corpuscular Pmuprpdbwr8216-10-74 11:45:00 Test Item Value Reference Range Interpretation Comments Mean Corpuscular Hemoglobin (test code 30.6 28-32 = 785-6) [facility]"
[2021-02-17 12:00] LABS: Absolute Lymphocytes (CBC) 2.2 K/uL (0.7-4.9); Hematocrit 44.3 % (36.0-45.0); MPV 8.9 fL (7.6-11.3); RBC Red Blood Cell Count 4.81 M/uL (3.86-4.86)
[2021-02-17 12:22] LABS: Urine Blood Negative (Negative); Urine Glucose Negative (Negative); Urine Protein Negative (Negative)
[2021-02-17 12:48] LABS: Albumin 3.6 g/dL (3.4-5.0); Bilirubin Direct 0.1 mg/dL (0-0.2); Bilirubin Total 0.3 mg/dL (0.2-1.0); Potassium 4.7 mmol/L (3.5-5.1); Protein, Total 7.4 g/dL (6.4-8.2)
[2021-02-17 13:08] LABS: SARS-COV-2 RT PCR NEGATIVE (NEGATIVE)
--- NOTE | 2021-02-17 13:24 | RAD REPORT ---
EXAM DESCRIPTION: CTAbdomen Pelvis W Contrast - 02/17/2021 12:59 pm CLINICAL HISTORY: Abdominal pain. r. side abd pain, hysterectomy COMPARISON: No comparisons TECHNIQUE: Biphasic CT imaging of the abdomen and pelvis was performed with 100 ml non-ionic IV cont rast. All CT scans are performed using dose optimization technique as appropriate and may include automated exposure control or mA/KV adjustment according to patient size. FINDINGS: The lung bases are clear.Cholecystectomy. The liver, spleen, pancreas, adrenal glands and kidneys are within normal limits. No bowel obstruction, free air, free fluid or abscess. The appendix is normal. No evidence of signi ficant lymphadenopathy. Mild lumbosacral degenerative changes. IMPRESSION: No acute intra-abdominal or pelvic finding.
--- NOTE | 2021-02-17 13:43 | EDPHYS ---
Physician Documentation [facility] Name: Tata Friedman Age: 50 yrs Sex: Female : 1970 Arrival Date: 02/17/2021 Time: 11:12 Bed 17 Private MD: ED Physician Светлана Ocampo HPI: 02/17 11:37 This 50 yrs old Female presents to ER via Ambulatory with complaints of Sore Throat, jmm Abdominal Pain, Vomiting. 11:37 The patient presents with sore throat. Onset: The symptoms/episode began/occurred jmm gradually, 7 day(s) ago. Modifying factors: The symptoms are alleviated by nothing, the symptoms are aggravated by nothing. Associated signs and symptoms: Pertinent positives: chills, Sore throat. This is a 50 year old female with complaints of ongoing abdominal pain and concerns she may have covid. Patient states she has developed sore throat, chills, headache.. 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 Pneumococcal vaccine is not up to date, Flu vaccine is up to date. - Social history:: Smoking status: Patient reports the use of cigarette tobacco products, smokes one-half pack cigarettes per day. ROS: 11:37 Cardiovascular: Negative for chest pain, palpitations, and edema, Respiratory: Negative jmm for shortness of breath, cough, wheezing, and pleuritic chest pain. 11:37 Constitutional: Positive for body aches, chills. 11:37 ENT: Positive for ear pain, sore throat. 11:37 Abdomen/GI: Positive for abdominal pain. 11:37 All other systems are negative. Exam: 11:37 Constitutional: This is a well developed, well nourished patient who is awake, alert, jmm and in no acute distress. Head/Face: atraumatic. Eyes: EOMI, no conjunctival erythema appreciated ENT: Moist Mucus Membranes Neck: Trachea midline, Supple Chest/axilla: Normal chest wall appearance and motion. Cardiovascular: Regular rate and rhythm. No edema appreciated Respiratory: Normal respirations, no respiratory distress appreciated 11:37 Back: Normal ROM Skin: General appearance color normal MS/ Extremity: Moves all extremities, no obvious deformities appreciated, no edema noted to the lower extremities Neuro: Awake and alert, normal gait Psych: Behavior is normal, Mood is normal, Patient is cooperative and pleasant 11:37 Abdomen/GI: Inspection: abdomen appears normal, Bowel sounds: normal, Palpation: soft, moderate abdominal tenderness, in the right upper quadrant. Vital Signs: 11:17 BP 140 / 80; Pulse 62; Resp 17 S; Temp 97.9(TE); Pulse Ox 97% on R/A; Weight 53.52 kg 9 (R); Height 5 ft. 8 in. (172.72 cm) (R); 11:45 BP 133 / 75; Pulse 62; Resp 18; Pulse Ox 99% on R/A; [place] 13:42 BP 121 / 71; Pulse 59; Resp 18; Pulse Ox 96% on R/A; [place] 11:17 Body Mass Index 17.94 (53.52 kg, 172.72 cm) 9 MDM: 11:50 Patient medically screened. [facility] 13:41 Data reviewed: vital signs, nurses notes. Counseling: I had a detailed discussion with tony the patient and/or guardian regarding: the historical points, exam findings, and any diagnostic results supporting the discharge/admit diagnosis, lab results, radiology results, the need for outpatient follow up, to return to the emergency department if symptoms worsen or persist or if there are any questions or concerns that arise at home. ED course: Patient is alert and non toxic in appearance in the ED. No signs of resp distress. Patient advised to follow up with GI for further evaluation Patient is otherwise given strict return precautions. patient understood and agrees with the plan of care. . 02/17 11:36 Order name: COVID-19/FLU A+B (Document "Date of Onset" if Symptomatic); Complete Time: mb7 :02/17 11:51 Order name: Basic Metabolic Panel; Complete Time: 13: [facility] 02/17 11:51 Order name: CBC with Diff; Complete Time: 12:16 [facility] 02/17 11:51 Order name: Hepatic Function; Complete Time: 13: [facility] 02/17 11:51 Order name: Lipase; Complete Time: 13: [facility] 02/17 11:51 Order name: IV Saline Lock; Complete Time: 11:53 [facility] 02/17 11:51 Order name: Labs collected and sent; Complete Time: 11:53 [facility] 02/17 11:51 Order name: Urine Dipstick-Ancillary (obtain specimen); Complete Time: 12:16 [facility] 02/17 11:51 Order name: CT Abd/Pelvis - IV Contrast Only; Complete Time: 13:25 [facility] 02/17 12:21 Order name: Urine Dipstick-Ancillary; Complete Time: 12:34 EDMS Administered Medications: 13:50 Drug: morphine 4 mg Route: IVP; Site: right antecubital; [place] 13:57 Follow up: Response: No adverse reaction [place] 13:50 Drug: Zofran (Ondansetron) 4 mg Route: IVP; Site: right antecubital; [place] 13:56 Follow up: Response: No adverse reaction [place] Disposition Summary: 02/17/21 13:43 Discharge Ordered Location: Home [facility] Condition: Stable [facility] Diagnosis - Abdominal pain, unspecified [facility] Followup: [facility] - With: Geno Hall MD - When: 2 - 3 days - Reason: Recheck today's complaints, Continuance of care, Re-evaluation by your physician Discharge Instructions: - Discharge Summary Sheet [facility] - Abdominal Pain, Adult [facility] Forms: - Medication Reconciliation Form [facility] - Thank You Letter [facility] - Antibiotic Education [facility] - Prescription Opioid Use [facility] Prescriptions: - Pepcid 20 mg Oral Tablet - take 1 tablet by ORAL route every 12 hours for 10 days; 20 tablet; Refills: 0, [facility] Product Selection Permitted - dicyclomine 20 mg Oral Tablet - take 1 tablet by ORAL route 4 times per day; 30 tablet; Refills: 0, Product [facility] Selection Permitted Signatures: Dispatcher [employer] EDMS Julian Desir PA PA jmm Gilmore, Jennifer RN RN jg9 Arabella Pickett RN RN [place]
--- NOTE | 2021-02-17 13:43 | ER ---
Nurse's Notes [facility] Name: Tata Friedman Age: 50 yrs Sex: Female : 1970 Arrival Date: 02/17/2021 Time: 11:12 Bed 17 Private MD: Diagnosis: Abdominal pain, unspecified Presentation: 02/17 11:17 Chief complaint: Patient states: I had covid exposure at my job 7 days ago, now I have jg9 a headache, my throat is scratchy, my right lower abdomen hurts and I don't have a gall bladder, and I feel kind of dehydrated; weak". Patient is now c/o chest tightness/pain. Coronavirus screen: Vaccine status: Patient reports being unvaccinated. Client denies travel out of the [place] in the last 14 days. Ebola Screen: Patient negative for fever greater than or equal to 101.5 degrees Fahrenheit, and additional compatible Ebola Virus Disease symptoms Patient denies exposure to infectious person. Patient denies travel to an Ebola-affected area in the 21 days before illness onset. Initial Sepsis Screen: Does the patient meet any 2 criteria? No. Patient's initial sepsis screen is negative. Risk Assessment: Do you want to hurt yourself or someone else? Patient reports no desire to harm self or others. Onset of symptoms was February 10, 2021 at 20:00. 11:17 Method Of Arrival: [place] [facility] [place] 11:17 Acuity: CAROLINE 3 9 11:41 Initial Sepsis Screen: Does the patient have a suspected source of infection? No. robledo Patient's initial sepsis screen is negative. Triage Assessment: 11:24 General: Appears in no apparent distress. Behavior is calm, cooperative. Pain: 9 Complains of pain in chest and abdomen-rlq and chest pain with sob. 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 Pneumococcal vaccine is not up to date, Flu vaccine is up to date. - Social history:: Smoking status: Patient reports the use of cigarette tobacco products, smokes one-half pack cigarettes per day. Screenin:39 Abuse screen: Denies threats or abuse. Denies injuries from another. Nutritional robledo screening: No deficits noted. Tuberculosis screening: No symptoms or risk factors identified. Fall Risk None identified. IV access (20 points). Assessment: 11:39 General: Appears in no apparent distress. Behavior is calm. Pain: Complains of pain in robledo right lower quadrant. Cardiovascular: Chest pain is located in chest wall. Respiratory: Airway Respiratory effort is even, unlabored, Breath sounds are clear. EENT: Throat is reddened. Vital Signs: 11:17 BP 140 / 80; Pulse 62; Resp 17 S; Temp 97.9(TE); Pulse Ox 97% on R/A; Weight 53.52 kg j9 (R); Height 5 ft. 8 in. (172.72 cm) (R); 11:45 BP 133 / 75; Pulse 62; Resp 18; Pulse Ox 99% on R/A; robledo 13:42 BP 121 / 71; Pulse 59; Resp 18; Pulse Ox 96% on R/A; robledo 11:17 Body Mass Index 17.94 (53.52 kg, 172.72 cm) j9 ED Course: 11:12 Patient arrived in ED. as 11:22 Triage completed. 9 11:39 Julian Desir PA is PHCP. [facility] 11:39 Светлана Ocampo MD is Attending Physician. jmm 11:40 Arm band placed on right wrist. robledo 11:40 Inserted saline lock: 22 gauge in right antecubital area, using aseptic technique. robledo 11:41 Patient has correct armband on for positive identification. Bed in low position. robledo 11:41 No provider procedures requiring assistance completed. robledo 11:42 COVID-19/FLU A+B (Document "Date of Onset" if Symptomatic) Sent. robledo 11:53 Basic Metabolic Panel Sent. robledo 11:53 CBC with Diff Sent. robledo 11:53 Hepatic Function Sent. robledo 11:53 Lipase Sent. robledo 12:59 CT Abd/Pelvis - IV Contrast Only In Process Unspecified. EDMS 13:42 Geno Hall MD is Referral Physician. jmm 14:12 IV discontinued, intact, Pressure dressing applied. robledo Administered Medications: 13:50 Drug: morphine 4 mg Route: IVP; Site: right antecubital; robledo 13:57 Follow up: Response: No adverse reaction robledo 13:50 Drug: Zofran (Ondansetron) 4 mg Route: IVP; Site: right antecubital; robledo 13:56 Follow up: Response: No adverse reaction robledo Outcome: 13:43 Discharge ordered by MD. jimenez 14:12 Discharged to home rob[place]o 14:12 Condition: good 14:12 Discharge instructions given to patient, Prescriptions given X 2. 14:12 Patient left the ED. robledo Signatures: Dispatcher [employer] EDMS Julian Desir PA PA jmm Martinez, Amelia as Gilmore, Jennifer, RN RN jg9 Zoila-StagerArabella RN RN robledo Corrections: (The following items were deleted from the chart) 11:25 11:17 Chief complaint: Patient states: I had covid exposure at my job 7 days ago, now I jg9 have a headache, my throat is scratchy, my right lower abdomen hurts and I don't have a gall bladder, and I feel kind of dehydrated; weak". jg9
[2021-02-17] MEDS ORDERED: ONDANSETRON 4 MG/2 ML VIAL ONE (13:49)
[2021-02-17] MEDS ORDERED: MORPHINE 4 MG/ML SYR ONE (13:49)
[2021-02-17 14:24] VITALS: TEMP 97.9
[2021-02-17 14:35] VITALS: BP 121/71; O2SAT 96
== END 2021-02-17 14:12 | disposition home or self-care (01) ==
LOC: ER 11:06
DX: R10.9 Unspecified abdominal pain (principal); F17.210 Nicotine dependence, cigarettes, uncomplicated; Z20.822 Contact with and (suspected) exposure to COVID-19
CPT/HCPCS: 85025; 80048; 36415; 80076; 81003; 83690; 0240U; 74177; 96375; 96374; 99284; Q9967; J2405

== ENCOUNTER 2021-02-24 07:55 | Emergency (ER) | payer OTHER ==
--- OUTSIDE RECORDS SUMMARY | 2021-02-24 07:59 | XMS REPORT | Continuity of Care Document ---
:1970 Author Organization [facility] t Address [address] [place] [address] Care Team Providers Name Role Phone NO [...] rs active active ity of problems problems [facility] Allergies, Adverse Reactions, Alerts Allergy Allergy Status Severity Reaction(s) Onset Inactive Treating Comm ents Source Name Type Date Date Clinician Ibuprofe Propensi Active Rash Univer s n ty to 03-03 ity of adverse 00:00: [place] reaction 00 [facility] IBUPROFE DRUG Active Rash Univers N INGREDI 03-03 ity of 00:00: [place] 00 [facility] NO KNOWN Drug Active Univers ALLERGIE Class ity of S [facility] Social History Social Habit Start Date Stop Date Quantity Comments Source Sex Assigned At Universit y of [facility] Exposure to Not sure [place] of SARS-CoV-2 (event) [facility] Cigarettes smoked 2020-03-03 2020-03-03 Univers ity of current (pack per 00:00:00 00:00:00 ) - Reported Branch Cigarette 2020-03-03 2020-03-03 University of pack-years 00:00:00 00:00:00 [facility] Tobacco use and 2020-03-03 2020-03-03 Former user Universi ty of exposure 00:00:00 00:00:00 [facility] Alcohol intake 2020-03-03 2020-03-03 Ex-drinker [facility] 00:00:00 00:00:00 (finding) [facility] Smoking Status Start Date Stop Date Source Current every day smoker 2020-03-03 00:00:00 Uni versity [facility] Medications Ordered Filled Start Stop Current Ordering Indication Dosage Frequency Signature Comments Components Source Medication Medication Date Date Medication? Clinician (SIG) Name Name benzonatate Yes [id number] 100mg Take 1 Univers 100 mg 1-22 capsule by ity of capsule 00:00: mouth 3 [place] 00 (three) Medical times Branch daily as needed for Cough. albuterol Yes [id number] 2{puff} Inhale 2 Univers 90 1-22 Puffs [...] 1 dose, 09/11/19 at 1145, GAGE buprenorphi Yes 16mg Place 16 Un keon ne-naloxone 8-01 mg under ity of 8-2 mg 16:34: the tongue [place] sublingual 41 daily. Medical film Branch cloNIDine 2020-0 Yes .2mg Take 0.2 Univ ers 0.2 mg 8-01 mg by ity of tablet 16:34: mouth 2 [place] 41 (two) Medical times Branch daily. QUEtiapine 2020-0 Yes 50mg Take 50 mg U nivers 50 mg 8-01 by mouth ity of tablet 16:34: daily. [place] [address] Medical Branch mirtazapine 2020-0 Yes 15mg Take 15 mg Univers 15 mg 8-01 by mouth ity of tablet 16:34: at [place] [address] bedtime. Medical Branch lithium 2020-0 Yes 900mg Take 900 Unive rs carbonate 8-01 mg by ity of 300 mg 16:34: mouth [place] tablet 41 daily. Medical Branch venlafaxine 2020-0 Yes 37.5mg Take 37.5 Univers XR 37.5 mg 8-01 mg by ity of 24 hr 16:34: mouth [place] capsule 41 daily with Medica l breakfast. Branch LORazepam 2020-0 Yes .5mg Take 0.5 Univ ers 0.5 mg 8-01 mg by ity of tablet 16:34: mouth 2 [place] 41 (two) Medical times Branch daily. haloperidol [...] by ity of tablet 16:34: mouth 2 [place] 41 (two) Medical times Branch daily. QUEtiapine 2020-0 Yes 50mg Take 50 mg U nivers 50 mg 8-01 by mouth ity of tablet 16:34: daily. [place] [address] Medical Branch mirtazapine 2020-0 Yes 15mg Take 15 mg Univers 15 mg 8-01 by mouth ity of tablet 16:34: at [place] [address] bedtime. Medical Branch lithium 2020-0 Yes 900mg [...] 41 daily. Medical Branch famotidine 2020-0 Yes [id number] 20mg Take 1 Univers 20 mg 8-01 tablet by ity of tablet 00:00: mouth 2 [place] 00 (two) Medical times Branch daily. proMETHazin 2020-0 Yes [id number] 25mg Take 1 Univers e 25 mg 8-01 tablet by ity of tablet 00:00: mouth [place] 00 every 6 Medical (six) Branch hours as needed for Nausea and Vomiting (N/V). famotidine 2020-0 Yes [id number] 20mg Take 1 Univers 20 mg 8-01 tablet by ity of tablet 00:00: mouth 2 [place] 00 (two) Medical times Branch daily. proMETHazin 2020-0 Yes [id number] 25mg Take 1 Univers e 25 mg 8-01 tablet by ity of tablet 00:00: mouth [place] 00 every 6 Medical (six) Branch hours as needed for Nausea and Vomiting (N/V). Ondansetron Ondansetron Yes Grant L [address] [facility] Hcl Hcl 09-13 Mohan [employer] Hours as [facility] - (Zofran*) 4 (Zofran*) 4 00:00: needed for Patient Mg Tablet Mg Tablet 00 Nausea [facility] Cefdinir Cefdinir 0 Yes Grant L [address] [facility] (Omnicef) (Omnicef) 8 Mohan [employer] Day [facility] - 300 Mg 300 Mg 00:00: Patient Capsule Capsule 00 [facility] Benztropine Benztropine Yes [address] [facility] Mesylate 2 Mesylate 2 Day Mery es - Mg Tablet Mg Tablet Patie nt [facility] Buprenorphi Buprenorphi Yes 1 Daily [...] - Tablet Tablet [facility] [place] Yes [address] [facility] Carbonate Carbonate Day [facility] - 450 Mg 450 Mg Patient Tablet.er Tablet.er s [facility] [place] Mirtazapine Mirtazapine Yes [address] [facility] (Remeron) (Remeron) [facility] - 15 Mg 15 Mg Patient Tablet Tablet s [facility] [place] Oxcarbazepi Oxcarbazepi Yes [address] [facility] ne ne [facility] - (Trileptal) (Trileptal) P atient 300 Mg 300 Mg s [facility] Quetiapine Quetiapine Yes [address] [facility] Fumarate Fumarate Day [facility] - (Seroquel) (Seroquel) Pat ient 25 Mg 25 Mg s Tablet Tablet [facility] [place] Vital Signs Vital Name Observation Time Observation Value Comments Source Systolic blood 2020-03-03 18:05:00 130 mm[facility]Hg[facility] Diastolic blood 2020-03-03 18:05:00 89 mm[Hg] Unive [facility] Heart rate 2020-03-03 18:05:00 99 /min [facility] Respiratory rate 2020-03-03 18:05:00 17 /min [facility] Oxygen saturation in 2020-03-03 18:05:00 99 /min [facility] Arterial blood by [facility] [place] [facility] Pulse oximetry Branch Body temperature 2020-03-03 15:55:00 37.06 Leida [facility] Body weight 2020-03-03 15:53:00 54.432 kg [facility] Systolic blood 2019-09-11 17:07:31 137 mm[Hg] [facility] Diastolic blood 2019-09-11 17:07:31 91 mm[Hg] Unive [facility] Heart rate 2019-09-11 17:07:31 98 /min [facility] Body temperature 2019-09-11 17:07:31 37.17 Leida [facility] Respiratory rate 2019-09-11 17:07:31 22 /min [facility] Oxygen saturation in 2019-09-11 17:07:31 98 /min [facility] blood by [facility] [place] [facility] Pulse oximetry [place] Body weight 2019-09-11 16:34:00 50 kg [facility] Procedures Procedure Date / Time Performed Performing Clinician Sour e XR CHEST 2 VW 2020-03-03 16:39:10 Juanis Hall [facility] POCT TEST 2020-03-03 16:16:00 Juanis Hall [facility] COVID-19 (ID NOW RAPID 2020-03-03 16:16:00 [facility] CBC WITH DIFF 2019-09-11 17:23:00 Yasmin Betts [facility] TROPONIN I 2019-09-11 17:01:00 Ghazala Bettsian Gisel [facility] XR ABDOMEN ACUTE 2019-09-11 16:59:22 Yasmin Betts [facility] SERIES [facility] EKG-12 LEAD 2019-09-11 16:49:04 Yasmin Betts [facility] LIPASE 2019-09-11 16:42:00 Yasmin Betts [facility] TEST, SERUM 2019-09-11 16:42:00 Yasmin Betts [facility] HEPATIC FUNCTION PANEL 2019-09-11 16:42:00 Yasmin Betts [facility] ([id number]) [facility] (ALB,T.PRO,BILI T,BU/BC,ALT,AST,ALK PHOS) BASIC METABOLIC PANEL 2019-09-11 16:42:00 Yasmin Betts [facility] (NA, K, CL, CO2, Medical Branch GLUCOSE, BUN, CREATININE, CA) LITHIUM 2019-09-11 16:42:00 Yasmin Betts [facility] Computed tomography of 2018-09-13 00:00:[address] [facility] Patients [facility] with contrast Center Encounters Start End Encounter Admission Attending Care Care Encounter Source Date/Time Date/Time Type Type Clinicians Facility Department ID 2020-03-03 2020-03-03 Emergency Ibikunle, TRAUMA [id number] Univers 09:55:00 12:07:00 [place] F CENTER 350.1.13.10 [place] [id number] [facility] 014 Branch 2020-03-03 2020-03-03 Emergency X IBJUNIOR, [facility] ERT [id number] Univers 09:55:00 09:55:00 FOLUSHO ity of [facility] 2019-09-11 2019-09-11 Emergency Yasmin Betts TRAUMA [id number] Univers 11:27:00 14:04:00 W CENTER 350.1.13.10 [id number] [place] [address] Branch 2019-09-11 2019-09-11 Emergency X GHAZALA BETTSIAN [facility] ERT [id number] Univers 11:27:00 11:27:00 ity of [facility] 2018-09-13 2018-09-13 [facility]arted 1 [facility] [id number] [facility] 11:09:00 18:00:[address] - Room Patient [facility] Results Test Description Test Time Test Comments Results Result Comments Source COVID-19 (ID NOW RAPID TESTING) 2020-03-03 17:05:00 Test Item Value Reference Range Interpretation Comme nts SARS-CoV-2 Rapid ID NOW (test code Not Detected Not Detected = 57172-4) SHALOM (test code = SHALOM) ID NOW COVID-19 Assay is an isothermal nucleic acid amplification test intended for the qualitative detection of nucleic acid from SARS-CoV-2 viral RNA in nasopharyngeal ([employer]) specimens. It is used under Emergency Use [...] indicated. Lab Interpretation (test code = Normal 75693-6) [facility] [id number] 16:16:00 Test Item Value Reference Range Interpretation Comments POCT PREG (test code = 1605) negative On board controls acceptable with present C Line (test code = 3574) POCT PREG LOT # (test code = 3575) [id number] POCT PREG TEST DATE (test 10/10/2021 code = 3576) Lab Interpretation (test code = Normal 51229-6) [facility] Abdomen [id number] 18:23:32 No acute cardiopulmonary process. Nonobstructive bowel [...] No suspiciouscalcification identified.IMPRESSIONNo acute cardiopulmonary process.Nonobstructive bowelgas pattern.[facility] Troponin [id number] 17:47:00 Test Item Value Reference Range Interpretation Comments TROPONIN I (test 0.013 ng/mL See_Comment [Automated code = 7246874393) message] The system which generated this result [...] ? Lab Interpretation Normal (test code = 56546-0) [facility] with Dagisifzpofy1835-45-82 17:39:00 Test Item Value Reference Range Interpretation Comments WBC (test code = See_Comment [Automated 2890-2) message] The sy stem which generated this result transmitted reference range : 4.30 - 11.10 10*3/?L. The reference range was not used to interpret this result as normal/abnormal . RBC (test code = See_Comment [Automated 689-8) message] The sy stem which generated this [...] RDW-SD (test code = 43.0 fL 39-49.9 46543-2) RDW-CV (test code = 12.9 % 12-15.5 788-0) PLT (test code = See_Comment [Automated 777-3) message] The sy stem which generated this result transmitted reference range : 166 - 358 10*3/ ?L. The reference r ejnn was not used to interpret this result as normal/abnormal . MPV (test code = 11.7 fL 9.5-12.9 08647-6) NRBC/100 WBC (test See_Comment [Automat ed code = 2135172773) message] The system which generated this result transmitted reference range : 0.0 - 10.0 /100 WBCs. The refer ence range was not u sed to interpret th is result as normal/abnormal . NRBC x10^3 (test code <0.01 See_Comment [Auto mated = 7792778120) message] The s ystem which generated this result transmitted reference range : 10*3/?L. The reference range was not used to interpret this result as normal/abnormal . GRAN MAT (NEUT) % 73.1 % (test code = 770-8) IMM GRAN % (test code 0.20 % = 2437173016) LYMPH % (test code = 17.1 % 736-9) MONO % (test code = 8.2 % 5905-5) EOS % (test code = 0.6 % 713-8) BASO % (test code = 0.8 % 706-2) GRAN MAT x10^3(ANC) 6.47 10*3/uL 1.88-7.09 (test code = 3945957719) IMM GRAN x10^3 (test <0.03 0-0.06 code = 5516656894) LYMPH x10^3 (test code 1.51 10*3/uL 1.32-3.29 = 731-0) MONO x10^3 (test code 0.73 10*3/uL 0.33-0.92 = 742-7) EOS x10^3 (test code = 0.05 10*3/uL 0.03-0.39 711-2) BASO x10^3 (test code 0.07 10*3/uL 0.01-0.07 = 704-7) Lab Interpretation Abnormal (test code = 33450-4) [facility]UM2020-08-01 17:34:00 Test Item Value Reference Range Interpretation Comments [place] (test code = <0.2 0.6-1.2 L 9795951004) SHALOM (test code = SHALOM) Toxic Range: ? Greater than 1.2 mmol/L Lab Interpretation (test Abnormal code = 12589-3) [facility] Met[facility] Panel (NA, K, CL, CO2, GLUCOSE, BUN, CREATININE, CA)2019-09-11 17:20:00 Test Item Value Reference Range Interpretation Comments NA (test code = 137 mmol/L 135-145 9867336707) K (test code = 4.2 mmol/L 3.5-5 7133384710) CL (test code = 105 mmol/L 98-108 3310066991) CO2 TOTAL (test code = 26 mmol/L 23-31 5605931805) AGAP (test code = 2-16 8414910828) BUN (test code = 15 mg/dL 7-23 7303924745) GLUCOSE (test code = 127 mg/dL 70-110 H 4165243641) CREATININE (test code = 0.55 mg/dL 0.5-1.04 5362921052) CALCIUM (test code = 10.4 mg/dL 8.6-10.6 4417007254) eGFR Calculation mL/min/1.73m2 (Non-) (test code = 5663489583) eGFR Calculation mL/min/1.73m2 () (test code = 8405954503) SHALOM (test code = SHALOM) Association of [...] tests). Lab Interpretation Abnormal (test code = 31640-1) [facility]evilleLipase [id number] 17:20:00 Test Item Value Reference Range Interpretation Comments LIPASE (test code = 4159466325) 106 U/L 0-220 Lab Interpretation (test code = Normal 92921-3) [facility]eville[facility]atic Function Panel (ALB, T.PRO, BILI T, BU/BC, ALT, AST, ALK PHOS)2019-09-11 17:20:00 Test Item Value Reference Range Interpretation Comments TOTAL BILI (test code = 5633284786) 0.6 mg/dL 0.1-1.1 BILI UNCON (test code = 5183668160) 0.7 mg/dL 0.1-1.1 BILI CONJ (test code = 4321589174) 0.0 mg/dL 0-0.3 T PROTEIN (test code = 5147853931) 7.9 g/dL 6.3-8.2 ALBUMIN (test code = 6391696199) 4.9 g/dL 3.5-5 ALK PHOS (test code = 1132424556) 106 U/L 34-122 ALTv (test code = 1742-6) 70 U/L 5-35 H AST(SGOT) (test code = 8142299936) 85 U/L 13-40 H Lab Interpretation (test code = Abnormal 82720-0) [facility]regnancy Test, Tkkjr2429-01-81 17:15:00 Test Item Value Reference Range Interpretation Comments PREG SERUM (test code Negative = 6115200142) SHALOM (test code = SHALOM) Less than 10 IU/L. ?If low titer or ectopic is suspected, resubmit specimen in 48-72 hours. [facility] SINGLE (PORTABLE)2018-09-13 16:05:00 [place] [address] Patient Name: CECI GRAHAM MR #: [id number] : 1970 Age/Sex: 48/F Req #: [id number] Adm Physician: Ordered by: GRANT MOHAN [employer] Report #: [id number] Location: ER Room/Bed: Procedure: [id number] DX/CHEST SINGLE (PORTABLE) Exam Date: 09/13/18 Exam [...] GRANT MOHAN NPCT ABDOMEN/PELVIS W 2018-09-13 14:45:00 [place] [address] Patient Name: CECI GRAHAM MR #: [id number] : 1970 Age/Sex: 48/F Req #: [id number] Adm Physician: Ordered by: GRANT MOHAN [employer] Report #: [id number] Location: ER Room/Bed: Procedure: [id number] CT/CT ABDOMEN/PELVIS W Exam Date: 09/13/18 Exam Time: 1415 REPORT STATUS: Signed ADDENDUM #1 Subcentimeter air cyst in the right lower lobe. Signed by: Dr. Celestina Polanco MD on 09/13/2018 4:[address] Abdomen And Pelvis with Intravenous Contrast INDICATION: Nausea, vomiting upper abdominal pain, n/v/d, rule out colitis [id number] 1415 TECHNIQUE: Thin collimation axial images obtained [...] MD 1602 Transcribed By: BENI on 09/13/18 9805 COPY TO: GRANT MOHAN NPSodium [id number] 12:25:00 Test Item Value Reference Range Interpretation Comments Sodium Level (test code = 2951-2) 139 136-145 [facility] Avaok3484-35-56 12:25:00 Test Item Value Reference Range Interpretation Comments Potassium Level (test code = 2823-3) 3.3 3.5-5.1 L [facility] HospitalChloride [id number] 12:25:00 Test Item Value Reference Range Interpretation Comments Chloride Level (test code = 2075-0) 103 98-107 [facility] HospitalCarbon Dioxide [id number] 12:25:00 Test Item Value Reference Range Interpretation Comments Carbon Dioxide Level (test code = 22 8-9) [facility] HospitalAnion [id number] 12:25:00 Test Item Value Reference Range Interpretation Comments Anion Gap (test code = 76601-8) 17.3 8-16 H [facility] HospitalBlood Urea [id number] 12:25:00 Test Item Value Reference Range Interpretation Comments Blood Urea Nitrogen (test code = 09-04 3094-0) [facility] Hospital[facility]inine2019-08-04 12:25:00 Test Item Value Reference Range Interpretation Comments Creatinine (test code = 2160-0) 0.78 0.57-1.11 [facility]BUN/Creatinine Fbiyz4808-52-67 12:25:00 Test Item Value Reference Range Interpretation Comments BUN/Creatinine Ratio (test code = 08-04 3097-3) [facility] HospitalEstimat Glomerular Filtration Rate 2018-09-13 12:25:00 Test Item Value Reference Range Interpretation Comments Estimat Glomerular Filtration Rate > 60 >60 (test code = 827512260) Ranges were taken from the National Kidney Disease Education Program and the National Kidney Foundation literature.Reference ranges:60 or greater: Fhgoyq68- 59 (for 3 consecutive months): Chronic kidneydisease 15 or less: Kidney failure [facility] HospitalGlucose [id number] 12:25:00 Test Item Value Reference Range Interpretation Comments Glucose Level (test code = UNZ7048) 143 74-118 H [facility] HospitalCalcium [id number] 12:25:00 Test Item Value Reference Range Interpretation Comments Calcium Level (test code = 78116-6) 10.1 8.4-10.2 [facility] HospitalMagnesium [id number] 12:25:00 Test Item Value Reference Range Interpretation Comments Magnesium Level (test code = 50547-8) 2.3 1.3-2.1 H [facility] Jfqqjuklg8212-59-93 12:25:00 Test Item Value Reference Range Interpretation Comments Total Bilirubin (test code = 1975-2) 0.7 0.2-1.2 [facility] HospitalAspartate Amino Transf (AST/SGOT) 2018-09-13 12:25:00 Test Item Value Reference Range Interpretation Comments Aspartate Amino Transf (AST/SGOT) (test 24 5-34 code = Aspartate Amino Transf (AST/SGOT)) [facility] HospitalAlanine Aminotransferase (ALT/SGPT) 2018-09-13 12:25:00 Test Item Value Reference Range Interpretation Comments Alanine Aminotransferase (ALT/SGPT) 24 0-55 (test code = 1742-6) [facility] Idpaxva1842-94-00 12:25:00 Test Item Value Reference Range Interpretation Comments Total Protein (test code = 2885-2) 7.2 6.5-8.1 [facility] HospitalAlbumin2019-08-04 12:25:00 Test Item Value Reference Range Interpretation Comments Albumin (test code = 1751-7) 4.2 3.5-5.0 [facility] HospitalGlobulin2019-08-04 12:25:00 Test Item Value Reference Range Interpretation Comments Globulin (test code = 07177-4) 3.0 2.3-3.5 [facility] HospitalAlbumin/Globulin [id number] 12:25:00 Test Item Value Reference Range Interpretation Comments Albumin/Globulin Ratio (test code = 1.4 0.8-2.0 1759-0) [facility] HospitalAlkaline Lsfwjqqusiu0610-47-14 12:25:00 Test Item Value Reference Range Interpretation Comments Alkaline Phosphatase (test code = 81 40150 6768-6) [facility] HospitalAmylase [id number] 12:25:00 Test Item Value Reference Range Interpretation Comments Amylase Level (test code = 1798-8) 84 25-125 [facility] HospitalLipase2019-08-04 12:25:00 Test Item Value Reference Range Interpretation Comments Lipase (test code = 3040-3) 18 8-78 [facility] HospitalUrine [id number] 11:53:00 Test Item Value Reference Range Interpretation Comments Urine Color (test code = 5778-6) YELLOW YELLOW [facility] Hospital[facility] Wqpbmbj6697-83-27 11:53:00 Test Item Value Reference Range Interpretation Comments Urine Clarity (test code = 09001-0) SL CLOUDY CLEAR [facility] HospitalU[facility] Specific Hsqupdo1018-12-56 11:53:00 Test Item Value Reference Range Interpretation Comments Urine Specific Pfeifer (test code = 1.015 1.010-1.025 5811-5) [facility] HospitalU[facility] [id number] 11:53:00 Test Item Value Reference Range Interpretation Comments Urine pH (test code = 30128-2) 7 5-7 [facility] Leukocyte Ypvgkyrk3566-13-39 11:53:00 Test Item Value Reference Range Interpretation Comments Urine Leukocyte Esterase (test code NEGATIVE NEGATIVE = 5799-2) [facility] HospitalU[facility] Wgoboon3917-15-72 11:53:00 Test Item Value Reference Range Interpretation Comments Urine Nitrite (test code = 98293-2) NEGATIVE NEGATIVE [facility] [id number] 11:53:00 Test Item Value Reference Range Interpretation Comments Urine Protein (test code = 5804-0) 2+ NEGATIVE H [facility] HospitalU[facility] Glucose (UA)2018-09-13 11:53:00 Test Item Value Reference Range Interpretation Comments Urine Glucose (UA) (test code = NEGATIVE NEGATIVE 2349-9) [facility] Sjexfvq0258-38-41 11:53:00 Test Item Value Reference Range Interpretation Comments Urine Ketones (test code = 12192-7) NEGATIVE NEGATIVE [facility] Crxqkhnbrxvw9567-44-13 11:53:00 Test Item Value Reference Range Interpretation Comments Urine Urobilinogen (test code = 0.2 0.2-1 59753-0) [facility] Qwefzpsjw9900-29-73 11:53:00 Test Item Value Reference Range Interpretation Comments Urine Bilirubin (test code = 1978-6) NEGATIVE NEGATIVE [facility] [id number] 11:53:00 Test Item Value Reference Range Interpretation Comments Urine Blood (test code = 39026-4) TRACE NEGATIVE H [facility] [id number] 11:53:00 Test Item Value Reference Range Interpretation Comments Urine WBC (test code = 5821-4) 11-20 0-5 H [facility] [id number] 11:53:00 Test Item Value Reference Range Interpretation Comments Urine RBC (test code = 73624-0) 11-20 0-5 H [facility] [id number] 11:53:00 Test Item Value Reference Range Interpretation Comments Urine Bacteria (test code = 53709-4) FEW NONE [facility] Epithelial Pzafk3941-34-20 11:53:00 Test Item Value Reference Range Interpretation Comments Urine Epithelial Cells (test code = FEW NONE 11174-4) [facility] HospitalU[facility] [id number] 11:53:00 Test Item Value Reference Range Interpretation Comments Urine Test (test code = NEGATIVE NEGATIVE 6-3) [facility] HospitalMean Corpuscular Hemoglobin Concent 2018-09-13 11:45:00 Test Item Value Reference Range Interpretation Comments Mean Corpuscular Hemoglobin Concent 35.1 31-35 H (test code = 786-4) [facility] HospitalRed Cell Distribution Rokzp1439-16-36 11:45:00 Test Item Value Reference Range Interpretation Comments Red Cell Distribution Width (test code 13.5 11.7-14.4 = 77670-9) [facility] HospitalPlatelet Dqirh3743-16-74 11:45:00 Test Item Value Reference Range Interpretation Comments Platelet Count (test code = 777-3) 318 140-360 [facility] HospitalNeutrophils (%) (Auto)2018-09-13 11:45:00 Test Item Value Reference Range Interpretation Comments Neutrophils (%) (Auto) (test code = 81.5 38.7-80.0 H 98214-2) [facility] HospitalLymphocytes (%) (Auto)2018-09-13 11:45:00 Test Item Value Reference Range Interpretation Comments Lymphocytes (%) (Auto) (test code = 9.7 18.0-39.1 L 736-9) [facility] HospitalMonocytes (%) (Auto)2018-09-13 11:45:00 Test Item Value Reference Range Interpretation Comments Monocytes (%) (Auto) (test code = 7.9 4.4-11.3 5905-5) [facility] HospitalEosinophils (%) (Auto)2018-09-13 11:45:00 Test Item Value Reference Range Interpretation Comments Eosinophils (%) (Auto) (test code = 0.0 0.0-6.0 713-8) [facility] HospitalBasophils (%) (Auto)2018-09-13 11:45:00 Test Item Value Reference Range Interpretation Comments Basophils (%) (Auto) (test code = 0.3 0.0-1.0 706-2) [facility]2018-09-13 11:45:00 Test Item Value Reference Range Interpretation Comments IM GRANULOCYTES % (test code = IM 0.6 0.0-1.0 GRANULOCYTES %) [facility] # (Auto)2018-09-13 11:45:00 Test Item Value Reference Range Interpretation Comments Neutrophils # (Auto) (test code = 15.3 2.1-6.9 H 751-8) [facility]ymphocytes # (Auto)2018-09-13 11:45:00 Test Item Value Reference Range Interpretation Comments Lymphocytes # (Auto) (test code = 1.8 1.0-3.2 90209-6) [facility] (Auto)2018-09-13 11:45:00 Test Item Value Reference Range Interpretation Comments Monocytes # (Auto) (test code = 742-7) 1.5 0.2-0.8 H [facility] (Auto)2018-09-13 11:45:00 Test Item Value Reference Range Interpretation Comments Eosinophils # (Auto) (test code = 0.0 0.0-0.4 711-2) [facility] (Auto)2018-09-13 11:45:00 Test Item Value Reference Range Interpretation Comments Basophils # (Auto) (test code = 704-7) 0.1 0.0-0.1 [facility] Immature Granulocyte (auto 2018-09-13 11:45:00 Test Item Value Reference Range Interpretation Comments Absolute Immature Granulocyte (auto 0.12 0-0.1 H (test code = Absolute Immature Granulocyte (auto) [facility]White Blood [id number] 11:45:00 Test Item Value Reference Range Interpretation Comments White Blood Count (test code = 6690-2) 18.82 4.8-10.8 [facility] Blood [id number] 11:45:00 Test Item Value Reference Range Interpretation Comments Red Blood Count (test code = 789-8) 5.30 3.6-5.1 H [facility]Hemoglobin2019-08-04 11:45:00 Test Item Value Reference Range Interpretation Comments Hemoglobin (test code = 26713-5) 16.2 12.0-16.0 H [facility]Hematocrit2019-08-04 11:45:00 Test Item Value Reference Range Interpretation Comments Hematocrit (test code = 4544-3) 46.1 34.2-44.1 H [facility]Mean Corpuscular [id number] 11:45:00 Test Item Value Reference Range Interpretation Comments Mean Corpuscular Volume (test code = 87.0 81-99 787-2) [facility] Corpuscular [id number] 11:45:00 Test Item Value Reference Range Interpretation Comments Mean Corpuscular Hemoglobin (test code 30.6 28-32 = 785-6) [facility]"
[2021-02-24] MEDS ORDERED: METOCLOPRAMIDE 10 MG/2mL INJ ONE (08:32)
[2021-02-24] MEDS ORDERED: KETOROLAC 30 MG/ML INJ ONE (08:32)
[2021-02-24] MEDS ORDERED: DIPHENHYDRAMINE 50 MG/ML VIAL ONE (08:32)
[2021-02-24] MEDS ORDERED: NA CHLORIDE 0.9% 1,000 ML ONE (08:32)
--- NOTE | 2021-02-24 09:00 | RAD REPORT ---
EXAM DESCRIPTION: CT - CTHCSPWOC - 02/24/2021 8:48 am CLINICAL HISTORY: PAIN COMPARISON: No comparisons TECHNIQUE: Axial 5 mm thick images of the head were obtained. Axial 2 mm thick images of the cervical spine were obtained with sagittal and coronal reconstruction images generated and reviewed. All CT scans are performed using dose optimization technique as appropriate and may include automated exposure control or mA/KV adjustment according to patient size. FINDINGS: CT HEAD WITHOUT CONTRAST: No acute hemorrhage, hydrocephalus or extra-axial collection is identified.No areas of brain edema or midline shift. The paranasal sinuses and mastoids are clear.The calvarium is intact. CT CERVICAL SPINE WITHOUT CONTRAST: No fracture or subluxation.No prevertebral soft tissues swelling is identified. Mild uncovertebral gabby int hypertrophy at C5-6 and C6-7. No central spinal stenosis. IMPRESSION: No acute intracranial or cervical spine findings.
--- NOTE | 2021-02-24 09:22 | ER ---
Nurse's Notes [facility] Name: Tata Friedman Age: 50 yrs Sex: Female : 1970 Arrival Date: 02/24/2021 Time: 07:57 Bed 18 Private MD: Diagnosis: Headache Presentation: 02/24 08:00 Chief complaint: Patient states: i have been having this super bad headache since tw2 Friday, it wakes me up in the night and is making me nauseous. my ears hurt. it feels weird. i had a bad fall Friday and my head did hit the ground, my glasses flew off me. i was feeling nauseous after the fall. Coronavirus screen: headache, nausea, vomiting. Client presents with at least one sign or symptom that may indicate coronavirus-19. Standard/surgical mask placed on the client. Provider contacted for isolation considerations. Ebola Screen: Patient denies travel to an Ebola-affected area in the 21 days before illness onset. Initial Sepsis Screen: Does the patient meet any 2 criteria? No. Patient's initial sepsis screen is negative. Does the patient have a suspected source of infection? No. Patient's initial sepsis screen is negative. Risk Assessment: Do you want to hurt yourself or someone else? Patient reports no desire to harm self or others. Onset of symptoms was February 24, 2021. 08:00 Method Of Arrival: Ambulatory tw2 08:00 Acuity: CAROLINE 3 tw2 Triage Assessment: 08:05 Headache History: The patient has had previous headaches and this one is different than tw2 previous episodes, and this one is more severe than previous episodes. General: Appears in no apparent distress. uncomfortable, slender, Behavior is calm, cooperative, appropriate for age. Pain: Complains of pain in headache Pain currently is 9 out of 10 on a pain scale. Pain began 2-3 days ago. Also complains of nausea, photophobia. Neuro: Level of Consciousness is awake, alert, obeys commands, Oriented to person, place, time, situation. GI: Reports intolerance of fluids, intolerance of food, nausea, vomiting. 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 Flu vaccine is up to date. - Social history:: Smoking status: Patient reports the use of cigarette tobacco products, smokes one-half pack cigarettes per day. Screenin:38 Abuse screen: Denies threats or abuse. Nutritional screening: No deficits noted. tw2 Tuberculosis screening: No symptoms or risk factors identified. Fall Risk None identified. Assessment: 08:41 General: Appears in no apparent distress. comfortable, Behavior is calm, cooperative, jd3 appropriate for age. Pain: Complains of pain in head Quality of pain is described as aching. Neuro: Level of Consciousness is awake, alert, obeys commands, Oriented to person, place, time, situation, Moves all extremities. Full function Gait is steady, Speech is normal, Pupils are PERRLA, Reports dizziness. Cardiovascular: Denies chest pain, Capillary refill < 3 seconds Patient's skin is warm and dry. Respiratory: Airway is patent Respiratory effort is even, unlabored, Respiratory pattern is regular, symmetrical, Denies cough, shortness of breath. GI: Reports nausea. : No signs and/or symptoms were reported regarding the genitourinary system. Derm: Skin is intact, Skin is dry, Skin is normal, Skin temperature is warm. Musculoskeletal: Circulation, motion, and sensation intact. Range of motion: intact in all extremities. 09:10 Reassessment: Patient appears in no apparent distress at this time. No changes from jd3 previously documented assessment. Patient and/or family updated on plan of care and expected duration. Pain level reassessed. Patient is alert, oriented x 3, equal unlabored respirations, skin warm/dry/pink. Vital Signs: 08:00 BP 142 / 88; Pulse 73; Resp 17; Temp 98.2(TE); Pulse Ox 100% on R/A; Weight 56.7 kg tw2 (R); Height 5 ft. 6 in. (167.64 cm); Pain 9/10; 09:34 BP 134 / 82; Pulse 72; Resp 17 S; Pulse Ox 100% on R/A; jd3 08:00 Body Mass Index 20.18 (56.70 kg, 167.64 cm) tw2 ED Course: 07:57 Patient arrived in ED. mr 08:03 Triage completed. tw2 08:05 Arm band placed on. tw2 08:07 Bed in low position. Call light in reach. tw2 08:11 Richard Marroquin, BRIGID is PHCP. pm1 08:11 Deonte Mcneill MD is Attending Physician. pm1 08:23 Alvin Billings RN is Primary Nurse. jd3 08:23 Alvin Billings RN is Primary Nurse. jd3 08:30 Inserted saline lock: 20 gauge in right forearm, using aseptic technique. jd3 08:48 CT Head C Spine In Process Unspecified. EDMS 09:33 No provider procedures requiring assistance completed. IV discontinued, intact, jd3 bleeding controlled, No redness/swelling at site. Pressure dressing applied. Administered Medications: 08:38 Drug: NS 0.9% 1000 ml Route: IV; Rate: 1000 ml; Site: right forearm; jd3 09:35 Follow up: Response: No adverse reaction; IV Status: Completed infusion jd3 08:39 Drug: Reglan (metoCLOPramide) 10 mg Route: IVP; Site: right forearm; jd3 09:35 Follow up: Response: No adverse reaction jd3 08:40 Drug: Ketorolac 15 mg Route: IVP; Site: right forearm; jd3 09:35 Follow up: Response: No adverse reaction jd3 08:40 Drug: Benadryl (diphenhydrAMINE) 25 mg Route: IVP; Site: right forearm; jd3 09:35 Follow up: Response: No adverse reaction jd3 Outcome: 09:21 Discharge ordered by . pm1 09:34 Discharged to home ambulatory, with family. jd3 09:34 Condition: stable 09:34 Discharge instructions given to patient, Instructed on discharge instructions, follow up and referral plans. medication usage, Demonstrated understanding of instructions, follow-up care, medications, Prescriptions given X 2. 09:36 Patient left the ED. jd3 Signatures: Dispatcher [employer] EDWI Emilia Quarles Patrick, BRIGID SLOT TECHNICIAN pm1 Rosa Leonard RN RN tw2 Alvin Billings RN RN jd3 Corrections: (The following items were deleted from the chart) 08:05 08:03 Home Meds: saboxone; 2 08:05 08:04 PMHx: "drug addict", since 2014; 2 08:05 08:04 PMHx: abdominal problems unknown-patient has not follwed up; 2 09:34 08:15 Inserted saline lock: 20 gauge in right forearm, using aseptic technique. jd3 jd3
--- NOTE | 2021-02-24 09:22 | EDPHYS ---
Physician Documentation [facility] Name: Tata Friedman Age: 50 yrs Sex: Female : 1970 Arrival Date: 02/24/2021 Time: 07:57 Bed 18 Private MD: AIDA Physician Deonte Mcneill HPI: 02/24 08:58 This 50 yrs old Female presents to ER via Ambulatory with complaints of Headache, pm1 Nausea. 08:58 The patient complains of pain to the left temporal area and right temporal area. The pm1 patient describes the headache as aching. Onset: The symptoms/episode began/occurred 3 day(s) ago. Associated signs and symptoms: Pertinent positives: nausea, Pertinent negatives: fever, neck stiffness, vomiting, weakness. Severity of symptoms: in the emergency department the pain is unchanged. The symptoms are alleviated by nothing. the symptoms are aggravated by nothing. The patient has not recently seen a physician. Patient reports slipped on concrete outside her house on Friday with fall to left shoulder. She hit the left side of her head on the ground. No LOC. Patient reports left sided neck pain. Since Friday, onset of headache to left and right temples. 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 Flu vaccine is up to date. - Social history:: Smoking status: Patient reports the use of cigarette tobacco products, smokes one-half pack cigarettes per day. ROS: 08:58 Constitutional: Negative for fever, chills, and weight loss. pm1 08:58 Cardiovascular: Negative for chest pain, palpitations, and edema, Respiratory: Negative for shortness of breath, cough, wheezing, and pleuritic chest pain, MS/Extremity: Negative for injury and deformity, Skin: Negative for injury, rash, and discoloration. 08:58 Neck: Positive for of the left trapezius, pain. 08:58 Abdomen/GI: Positive for nausea, Negative for abdominal pain, vomiting, diarrhea, constipation. 08:58 Neuro: Positive for headache, Negative for dizziness, numbness, tingling, weakness. 08:58 All other systems are negative. Exam: 08:58 Constitutional: This is a well developed, well nourished patient who is awake, alert, pm1 and in no acute distress. 08:58 Back: No spinal tenderness. No costovertebral tenderness. Full range of motion. Skin: Warm, dry with normal turgor. Normal color with no rashes, no lesions, and no evidence of cellulitis. MS/ Extremity: Pulses equal, no cyanosis. Neurovascular intact. Full, normal range of motion. 08:58 Head/face: Noted is no obvious of injury or deformity except tenderness, that is mild, of the left mandaen. 08:58 Eyes: Exam is negative for acute changes, Pupils: no acute changes, Extraocular movements: intact throughout, Sclera: no acute changes, icterus, is not appreciated. 08:58 ENT: External ear(s): are unremarkable, Ear canal(s): are normal, TM's: no acute changes, Mouth: no acute changes, Lips: normal, moist, Oral mucosa: normal, pink and intact, moist. 08:58 Neck: External neck: tenderness, that is mild, of the left trapezius. 08:58 Cardiovascular: Exam negative for acute changes, Rate: normal, Rhythm: regular, Pulses: no pulse deficits are appreciated. 08:58 Respiratory: Exam negative for acute changes, respiratory distress, shortness of breath. 08:58 Neuro: Exam negative for acute changes, Orientation: is normal, Mentation: is normal, Motor: is normal, moves all fours. Vital Signs: 08:00 BP 142 / 88; Pulse 73; Resp 17; Temp 98.2(TE); Pulse Ox 100% on R/A; Weight 56.7 kg tw2 (R); Height 5 ft. 6 in. (167.64 cm); Pain 9/10; 09:34 BP 134 / 82; Pulse 72; Resp 17 S; Pulse Ox 100% on R/A; jd3 08:00 Body Mass Index 20.18 (56.70 kg, 167.64 cm) tw2 MDM: 08:16 Patient medically screened. pm1 09:20 Data reviewed: vital signs. Data interpreted: Pulse oximetry: on room air is 100 %. pm1 Interpretation: normal. Counseling: I had a detailed discussion with the patient and/or guardian regarding: the historical points, exam findings, and any diagnostic results supporting the discharge/admit diagnosis, radiology results, the need for outpatient follow up, a family practitioner, to return to the emergency department if symptoms worsen or persist or if there are any questions or concerns that arise at home. 02/24 08:22 Order name: CT Head C Spine; Complete Time: 09:10 pm1 02/24 08:23 Order name: IV Saline Lock; Complete Time: 08:38 pm1 Administered Medications: 08:38 Drug: NS 0.9% 1000 ml Route: IV; Rate: 1000 ml; Site: right forearm; jd3 09:35 Follow up: Response: No adverse reaction; IV Status: Completed infusion jd3 08:39 Drug: Reglan (metoCLOPramide) 10 mg Route: IVP; Site: right forearm; jd3 09:35 Follow up: Response: No adverse reaction jd3 08:40 Drug: Ketorolac 15 mg Route: IVP; Site: right forearm; jd3 09:35 Follow up: Response: No adverse reaction jd3 08:40 Drug: Benadryl (diphenhydrAMINE) 25 mg Route: IVP; Site: right forearm; jd3 09:35 Follow up: Response: No adverse reaction jd3 Disposition Summary: 02/24/21 09:21 Discharge Ordered Location: Home pm1 Problem: new pm1 Symptoms: have improved pm1 Condition: Stable pm1 Diagnosis - Headache pm1 Followup: pm1 - With: Emergency Department - When: As needed - Reason: Worsening of condition Followup: pm1 - With: Private Physician - When: 2 - 3 days - Reason: Recheck today's complaints, Continuance of care, Re-evaluation by your physician Discharge Instructions: - General Headache Without Cause pm1 - Discharge Summary Sheet tw2 Forms: - Work release form tw2 - Medication Reconciliation Form pm1 - Thank You Letter pm1 - Antibiotic Education pm1 - Prescription Opioid Use pm1 Prescriptions: - ondansetron 4 mg Oral tablet,disintegrating - place 1 tablet by TRANSLINGUAL route every 8 hours As needed; 12 tablet; pm1 Refills: 0, Product Selection Permitted - Diclofenac Sodium 75 mg Oral tablet,delayed release (DR/EC) - take 1 tablet by ORAL route 2 times per day As needed; 30 tablet; Refills: 0, pm1 Product Selection Permitted Addendum: 02/25/2021 18:39 Co-signature as Attending Physician, Deonte Mcneill MD I agree with the assessment and c robledo plan of care. Signatures: Dispatcher [employer] Deonte Soto MD MD cha Marinas, Patrick, HEAVY LIFT RIGGER HEAVY LIFT RIGGER pm1 Rosa Leonard RN RN tw2 Alvin Billings RN RN jd3 Corrections: (The following items were deleted from the chart) 02/24 08:05 08:03 Home Meds: saboxone; 08 08:04 PMHx: "drug addict", since 2014; 08:05 08:04 PMHx: abdominal problems unknown-patient has not follwed up;
[2021-02-24 09:56] VITALS: TEMP 98.2; O2SAT 100
[2021-02-24 10:01] VITALS: BP 134/82
== END 2021-02-24 09:36 | disposition home or self-care (01) ==
LOC: ER 07:55
DX: R51.9 Headache, unspecified (principal); F17.210 Nicotine dependence, cigarettes, uncomplicated
CPT/HCPCS: 96361; 70450; 72125; 96375; 96374; 99284; J2765; J1200; J7030

== ENCOUNTER 2021-06-11 10:18 | Emergency (ER) | payer OTHER ==
--- OUTSIDE RECORDS SUMMARY | 2021-06-11 10:22 | XMS REPORT | Continuity of Care Document ---
:1970 Author Organization [facility] t Address [address] [place] [address] [place] [address] Care Team Providers Name Role Phone NO [...] rs active active ity of problems problems [facility] Allergies, Adverse Reactions, Alerts Allergy Allergy Status Severity Reaction(s) Onset Inactive Treating Comm ents Source Name Type Date Date Clinician Ibuprofe Propensi Active Rash Univer s n ty to 03-03 ity of adverse 00:00: [place] reaction 00 [facility] IBUPROFE DRUG Active Rash Univers N INGREDI 03-03 ity of 00:00: [place] 00 [facility] NO KNOWN Drug Active Univers ALLERGIE Class ity of S [facility] Social History Social Habit Start Date Stop Date Quantity Comments Source Sex Assigned At Universit y of [facility] Exposure to Not sure [place] of SARS-CoV-2 (event) [facility] Cigarettes smoked 2020-03-03 2020-03-03 Univers ity of current (pack per 00:00:00 00:00:00 ) - Reported Branch Cigarette 2020-03-03 2020-03-03 University of pack-years 00:00:00 00:00:00 [facility] Tobacco use and 2020-03-03 2020-03-03 Former user Universi ty of exposure 00:00:00 00:00:00 [facility] Alcohol intake 2020-03-03 2020-03-03 Ex-drinker [facility] 00:00:00 00:00:00 (finding) [facility] Smoking Status Start Date Stop Date Source Current every day smoker 2020-03-03 00:00:00 Uni versity [facility] Medications Ordered Filled Start Stop Current Ordering Indication Dosage Frequency Signature Comments Components Source Medication Medication Date Date Medication? Clinician (SIG) Name Name benzonatate Yes [id number] 100mg Take 1 Univers 100 mg 1-22 capsule by ity of capsule 00:00: mouth 3 [place] 00 (three) Medical times Branch daily as needed for Cough. albuterol Yes [id number] 2{puff} Inhale 2 Univers 90 1-22 Puffs [...] by ity of tablet 16:34: mouth 2 [place] 41 (two) Medical times Branch daily. QUEtiapine 2020-0 Yes 50mg Take 50 mg U nivers 50 mg 8-01 by mouth ity of tablet 16:34: daily. [place] [address] Medical Branch mirtazapine 2020-0 Yes 15mg Take 15 mg Univers 15 mg 8-01 by mouth ity of tablet 16:34: at [place] [address] bedtime. Medical Branch lithium 2020-0 Yes 900mg Take 900 Unive rs carbonate 8-01 mg by ity of 300 mg 16:34: mouth [place] tablet 41 daily. Medical Branch venlafaxine 2020-0 Yes 37.5mg Take 37.5 Univers XR 37.5 mg 8-01 mg by ity of 24 hr 16:34: mouth [place] capsule 41 daily with Medica l breakfast. Branch LORazepam 2020-0 Yes .5mg Take 0.5 Univ ers 0.5 mg 8-01 mg by ity of tablet 16:34: mouth 2 [place] 41 (two) Medical times Branch daily. haloperidol [...] by ity of tablet 16:34: mouth 2 [place] 41 (two) Medical times Branch daily. QUEtiapine 2020-0 Yes 50mg Take 50 mg U nivers 50 mg 8-01 by mouth ity of tablet 16:34: daily. [place] [address] Medical Branch mirtazapine 2020-0 Yes 15mg Take 15 mg Univers 15 mg 8-01 by mouth ity of tablet 16:34: at [place] [address] bedtime. Medical Branch lithium 2020-0 Yes 900mg [...] 41 daily. Medical Branch famotidine 2020-0 Yes [id number] 20mg Take 1 Univers 20 mg 8-01 tablet by ity of tablet 00:00: mouth 2 [place] 00 (two) Medical times Branch daily. proMETHazin 2020-0 Yes [id number] 25mg Take 1 Univers e 25 mg 8-01 tablet by ity of tablet 00:00: mouth [place] 00 every 6 Medical (six) Branch hours as needed for Nausea and Vomiting (N/V). famotidine 2020-0 Yes [id number] 20mg Take 1 Univers 20 mg 8-01 tablet by ity of tablet 00:00: mouth 2 [place] 00 (two) Medical times Branch daily. proMETHazin 2020-0 Yes [id number] 25mg Take 1 Univers e 25 mg 8-01 tablet by ity of tablet 00:00: mouth [place] 00 every 6 Medical (six) Branch hours as needed for Nausea and Vomiting (N/V). Cefdinir Cefdinir 2019-0 Yes Grant L [address] [facility] (Omnicef) (Omnicef) 8- Mohan [employer] [facility] - 300 Mg 300 Mg 00:00: Patient Capsule Capsule 00 [facility] Ondansetron Ondansetron 2019-0 Yes Grant L [address] [facility] Hcl Hcl 8-04 [employer] Crew Leader Hours [facility] - (Zofran*) 4 (Zofran*) 4 00:00: needed for Patient Mg Tablet Mg Tablet 00 Nausea [facility] Benztropine Benztropine Yes [address] [facility] Mesylate 2 Mesylate 2 Day Mery es - Mg Tablet Mg Tablet Patie nt [facility] Buprenorphi Buprenorphi Yes 1 Daily [...] - Tablet Tablet Patient [facility] [place] Yes [address] [facility] Carbonate Carbonate [facility] - 450 Mg 450 Mg Patient Tablet.er Tablet.er [facility] Mirtazapine Mirtazapine Yes [address] [facility] (Remeron) (Remeron) [facility] - 15 Mg 15 Mg Patient Tablet Tablet s [facility] Oxcarbazepi Oxcarbazepi Yes [address] [facility] ne [facility] - (Trileptal) (Trileptal) P atient 300 Mg 300 Mg s [facility] Quetiapine Quetiapine Yes [address] [facility] Fumarate Fumarate [facility] - (Seroquel) (Seroquel) Pat ient 25 Mg 25 Mg s Tablet Tablet [facility] Vital Signs Vital Name Observation Time Observation Value Comments Source Systolic blood 2020-03-03 18:05:00 130 [facility]Hg[facility] 2020-03-03 18:05:00 89 mm[Hg] Unive [facility] Heart rate 2020-03-03 18:05:00 99 /min [facility] Respiratory rate 2020-03-03 18:05:00 17 /min [facility] Oxygen saturation in 2020-03-03 18:05:00 99 /min [facility] Arterial blood by [facility] Pulse oximetry Branch Body temperature 2020-03-03 15:55:00 37.06 Leida [facility] Body weight 2020-03-03 15:53:00 54.432 kg [facility] Systolic blood 2019-09-11 17:07:31 137 mm[Hg] [facility] Diastolic blood 2019-09-11 17:07:31 91 mm[Hg] Unive [facility] Heart rate 2019-09-11 17:07:31 98 /min [facility] Body temperature 2019-09-11 17:07:31 37.17 Leida [facility] Respiratory rate 2019-09-11 17:07:31 22 /min [facility] Oxygen saturation in 2019-09-11 17:07:31 98 /min [facility] blood by [facility] Pulse oximetry [place] Body weight 2019-09-11 16:34:00 50 kg [facility] Procedures Procedure Date / Time Performed Performing Clinician Sour e XR CHEST 2 VW 2020-03-03 16:39:10 Juanis Hall [facility] POCT TEST 2020-03-03 16:16:00 Juanis Hall [facility] COVID-19 (ID NOW RAPID 2020-03-03 16:16:00 [facility] CBC WITH DIFF 2019-09-11 17:23:00 Yasmin Betts [facility] TROPONIN I 2019-09-11 17:01:00 Ghazala Bettsian Gisel [facility] XR ABDOMEN ACUTE 2019-09-11 16:59:22 Yasmin Betts [facility] SERIES [facility] EKG-12 LEAD 2019-09-11 16:49:04 Yasmin Betts [facility] LIPASE 2019-09-11 16:42:00 Yasmin Betts [facility] TEST, SERUM 2019-09-11 16:42:00 Yasmin Betts [facility] HEPATIC FUNCTION PANEL 2019-09-11 16:42:00 Yasmin Betts [facility] ([id number]) [facility] (ALB,T.PRO,BILI T,BU/BC,ALT,AST,ALK PHOS) BASIC METABOLIC PANEL 2019-09-11 16:42:00 Yasmin Betts [facility] (NA, K, CL, CO2, Medical Branch GLUCOSE, BUN, CREATININE, CA) LITHIUM 2019-09-11 16:42:00 Yasmin Betts [facility] Computed tomography of 2018-09-13 00:00:[address] [facility] - abdomen and pelvis Patients [facility] with contrast Center Encounters Start End Encounter Admission Attending Care Care Encounter Source Date/Time Date/Time Type Type Clinicians Facility Department ID 2020-03-03 2020-03-03 Emergency Ibikunle, TRAUMA [id number] Univers 09:55:00 12:07:00 Folusho F CENTER [id number] [place] [id number] [facility] 014 Branch 2020-03-03 2020-03-03 Emergency X IBJUNIOR, [facility] ERT [id number] Univers 09:55:00 09:55:00 FOLUSHO ity of [facility] 2019-09-11 2019-09-11 Emergency Yasmin Betts TRAUMA [id number] Univers 11:27:00 14:04:00 W CENTER [id number] [id number] [place] [address] Branch 2019-09-11 2019-09-11 Emergency X GHAZALA BETTSIAN [facility] ERT [id number] Univers 11:27:00 11:27:00 ity of [facility] 2018-09-13 2018-09-13 Departed 1 [facility] [id number] [address] [facility] 11:09:00 18:00:[address] - Room Patient [facility] Results Test Description Test Time Test Comments Results Result Comments Source COVID-19 (ID NOW RAPID TESTING) 2020-03-03 17:05:00 Test Item Value Reference Range Interpretation Comme nts SARS-CoV-2 Rapid ID NOW (test code Not Detected Not Detected = 33563-0) SHALOM (test code = SHALOM) ID NOW COVID-19 Assay is an isothermal nucleic acid amplification test intended for the qualitative detection of nucleic acid from SARS-CoV-2 viral RNA in nasopharyngeal (ELEMENTARY SPECIAL EDUCATION TEACHER) specimens. It is used under Emergency Use [...] indicated. Lab Interpretation (test code = Normal 74342-2) [id number] 16:16:00 Test Item Value Reference Range Interpretation Comments POCT PREG (test code = 1605) negative On board controls acceptable with present C Line (test code = 3574) POCT PREG LOT # (test code = 3575) [id number] POCT PREG TEST DATE (test 10/10/2021 code = 3576) Lab Interpretation (test code = Normal 66735-8) [facility]domen Bjpjii5411-79-57 18:23:32 No acute cardiopulmonary process. Nonobstructive bowel [...] No suspiciouscalcification identified.IMPRESSIONNo acute cardiopulmonary process.Nonobstructive bowelgas pattern.[facility] Troponin Z3222-12-18 17:47:00 Test Item Value Reference Range Interpretation Comments TROPONIN I (test 0.013 ng/mL See_Comment [Automated code = 2038866190) message] The system which generated this result [...] ? Lab Interpretation Normal (test code = 92044-9) [facility] with [id number] 17:39:00 Test Item Value Reference Range Interpretation Comments WBC (test code = See_Comment [Automated 0290-2) message] The sy stem which generated this result transmitted reference range : 4.30 - 11.10 10*3/?L. The reference range was not used to interpret this result as normal/abnormal . RBC (test code = See_Comment [Automated 799-8) message] The sy stem which generated this [...] RDW-SD (test code = 43.0 fL 39-49.9 94953-4) RDW-CV (test code = 12.9 % 12-15.5 788-0) PLT (test code = See_Comment [Automated 777-3) message] The sy stem which generated this result transmitted reference range : 166 - 358 10*3/ ?L. The reference r jenn was not used to interpret this result as normal/abnormal . MPV (test code = 11.7 fL 9.5-12.9 30291-3) NRBC/100 WBC (test See_Comment [Automat ed code = 2863394696) message] The system which generated this result transmitted reference range : 0.0 - 10.0 /100 WBCs. The refer ence range was not u sed to interpret th is result as normal/abnormal . NRBC x10^3 (test code <0.01 See_Comment [Auto mated = 7859956964) message] The s ystem which generated this result transmitted reference range : 10*3/?L. The reference range was not used to interpret this result as normal/abnormal . GRAN MAT (NEUT) % 73.1 % (test code = 770-8) IMM GRAN % (test code 0.20 % = 7946428481) LYMPH % (test code = 17.1 % 736-9) MONO % (test code = 8.2 % 5905-5) EOS % (test code = 0.6 % 713-8) BASO % (test code = 0.8 % 706-2) GRAN MAT x10^3(ANC) 6.47 10*3/uL 1.88-7.09 (test code = 1389038567) IMM GRAN x10^3 (test <0.03 0-0.06 code = 7130106966) LYMPH x10^3 (test code 1.51 10*3/uL 1.32-3.29 = 731-0) MONO x10^3 (test code 0.73 10*3/uL 0.33-0.92 = 742-7) EOS x10^3 (test code = 0.05 10*3/uL 0.03-0.39 711-2) BASO x10^3 (test code 0.07 10*3/uL 0.01-0.07 = 704-7) Lab Interpretation Abnormal (test code = 09611-4) [facility]2020-[facility]01 17:34:00 Test Item Value Reference Range Interpretation Comments [place] (test code = <0.2 0.6-1.2 L 1413069388) SHALOM (test code = SHALOM) Toxic Range: ? Greater than 1.2 mmol/L Lab Interpretation (test Abnormal code = 75643-6) [facility] (ALB, T.PRO, BILI T, BU/BC, ALT, AST, ALK PHOS)2019-09-11 17:20:00 Test Item Value Reference Range Interpretation Comments TOTAL BILI (test code = 0493604369) 0.6 mg/dL 0.1-1.1 BILI UNCON (test code = 9195439852) 0.7 mg/dL 0.1-1.1 BILI CONJ (test code = 8438693935) 0.0 mg/dL 0-0.3 T PROTEIN (test code = 4133820281) 7.9 g/dL 6.3-8.2 ALBUMIN (test code = 2796056535) 4.9 g/dL 3.5-5 ALK PHOS (test code = 1499087593) 106 U/L 34-122 ALTv (test code = 1742-6) 70 U/L 5-35 H AST(SGOT) (test code = 5061158081) 85 U/L 13-40 H Lab Interpretation (test code = Abnormal 95010-2) [facility] (NA, K, CL, CO2, GLUCOSE, BUN, CREATININE, CA)2019-09-11 17:20:00 Test Item Value Reference Range Interpretation Comments NA (test code = 137 mmol/L 135-145 2636666706) K (test code = 4.2 mmol/L 3.5-5 0200172027) CL (test code = 105 mmol/L 98-108 0318950576) CO2 TOTAL (test code = 26 mmol/L 23-31 3310531830) AGAP (test code = 2-16 8080771145) BUN (test code = 15 mg/dL 7-23 2147003863) GLUCOSE (test code = 127 mg/dL 70-110 H 1044141157) CREATININE (test code = 0.55 mg/dL 0.5-1.04 4918882863) CALCIUM (test code = 10.4 mg/dL 8.6-10.6 9427427247) eGFR Calculation mL/min/1.73m2 (Non-) (test code = 2961699048) eGFR Calculation mL/min/1.73m2 () (test code = 5360977258) SHALOM (test code = SHALOM) Association of [...] tests). Lab Interpretation Abnormal (test code = 03831-4) [facility]Lipase Kcgls0051-70-76 17:20:00 Test Item Value Reference Range Interpretation Comments LIPASE (test code = 7443142573) 106 U/L 0-220 Lab Interpretation (test code = Normal 69204-4) [facility]regnancy Test, Onqvd2287-65-86 17:15:00 Test Item Value Reference Range Interpretation Comments PREG SERUM (test code Negative = 8860254766) SHALOM (test code = SHALOM) Less than 10 IU/L. ?If low titer or ectopic is suspected, resubmit specimen in 48-72 hours. [facility] SINGLE (PORTABLE)2018-09-13 16:05:00 [place] [address] Patient Name: CECI GRAHAM MR #: [id number] : 1970 Age/Sex: 48/F Req #: [id number] Adm Physician: Ordered by: GRANT MOHAN ELEMENTARY SPECIAL EDUCATION TEACHER Report #: [id number] Location: ER Room/Bed: Procedure: [id number] DX/CHEST SINGLE (PORTABLE) Exam Date: 09/13/18 Exam [...] GRANT MOHAN NPCT ABDOMEN/PELVIS W 2018-09-13 14:45:00 [place] [address] Patient Name: CECI GRAHAM MR #: [id number] : 1970 Age/Sex: 48/F Req #: [id number] Adm Physician: Ordered by: GRANT MOHAN ELEMENTARY SPECIAL EDUCATION TEACHER Report #: [id number] Location: ER Room/Bed: Procedure: [id number] CT/CT ABDOMEN/PELVIS W Exam Date: 09/13/18 Exam Time: 1415 REPORT STATUS: Signed ADDENDUM #1 Subcentimeter air cyst in the right lower lobe. Signed by: Dr. Celestina Polanco MD on 09/13/2018 4:[address] Abdomen And Pelvis with Intravenous Contrast INDICATION: Nausea, vomiting upper abdominal pain, n/v/d, rule out colitis [id number] 1415 TECHNIQUE: Thin collimation axial images obtained [...] MD 1602 Transcribed By: BENI on 09/13/18 6870 COPY TO: GRANT MOHAN NPSodium [id number] 12:25:00 Test Item Value Reference Range Interpretation Comments Sodium Level (test code = 2951-2) 139 136-145 [facility] Imyor0716-60-70 12:25:00 Test Item Value Reference Range Interpretation Comments Potassium Level (test code = 2823-3) 3.3 3.5-5.1 L [facility] HospitalChloride Knwph8475-94-52 12:25:00 Test Item Value Reference Range Interpretation Comments Chloride Level (test code = 2075-0) 103 98-107 [facility] HospitalCarbon Dioxide Rcxkv1250-21-53 12:25:00 Test Item Value Reference Range Interpretation Comments Carbon Dioxide Level (test code = 22 8-9) [facility] HospitalAnion [id number] 12:25:00 Test Item Value Reference Range Interpretation Comments Anion Gap (test code = 27136-6) 17.3 8-16 H [facility] HospitalBlood Urea Nosdcook0129-45-50 12:25:00 Test Item Value Reference Range Interpretation Comments Blood Urea Nitrogen (test code = 09-04 3094-0) [facility] HospitalCreatinine2019-08-04 12:25:00 Test Item Value Reference Range Interpretation Comments Creatinine (test code = 2160-0) 0.78 0.57-1.11 [facility] HospitalBUN/Creatinine Cuzca6933-04-98 12:25:00 Test Item Value Reference Range Interpretation Comments BUN/Creatinine Ratio (test code = 08-04 3097-3) [facility] HospitalEstimat Glomerular Filtration Rate 2018-09-13 12:25:00 Test Item Value Reference Range Interpretation Comments Estimat Glomerular Filtration Rate > 60 >60 (test code = 393605339) Ranges were taken from the National Kidney Disease Education Program and the National Kidney Foundation literature.Reference ranges:60 or greater: Meetes72- 59 (for 3 consecutive months): Chronic kidneydisease 15 or less: Kidney failure [facility] HospitalGlucose [id number] 12:25:00 Test Item Value Reference Range Interpretation Comments Glucose Level (test code = UQQ3737) 143 74-118 H [facility] HospitalCalcium Sznux0591-96-75 12:25:00 Test Item Value Reference Range Interpretation Comments Calcium Level (test code = 85262-2) 10.1 8.4-10.2 [facility] HospitalMagnesium Mlfbf4514-42-98 12:25:00 Test Item Value Reference Range Interpretation Comments Magnesium Level (test code = 21400-5) 2.3 1.3-2.1 H [facility] HospitalTo[facility] Xnadvskic0225-62-03 12:25:00 Test Item Value Reference Range Interpretation Comments Total Bilirubin (test code = 1975-2) 0.7 0.2-1.2 [facility] HospitalAspartate Amino Transf (AST/SGOT) 2018-09-13 12:25:00 Test Item Value Reference Range Interpretation Comments Aspartate Amino Transf (AST/SGOT) (test 24 5-34 code = Aspartate Amino Transf (AST/SGOT)) [facility] HospitalAlanine Aminotransferase (ALT/SGPT) 2018-09-13 12:25:00 Test Item Value Reference Range Interpretation Comments Alanine Aminotransferase (ALT/SGPT) 24 0-55 (test code = 1742-6) [facility] Mrlxjbi2671-30-00 12:25:00 Test Item Value Reference Range Interpretation Comments Total Protein (test code = 2885-2) 7.2 6.5-8.1 [facility] HospitalAlbumin2019-08-04 12:25:00 Test Item Value Reference Range Interpretation Comments Albumin (test code = 1751-7) 4.2 3.5-5.0 [facility] HospitalGlobulin2019-08-04 12:25:00 Test Item Value Reference Range Interpretation Comments Globulin (test code = 21581-0) 3.0 2.3-3.5 [facility] HospitalAlbumin/Globulin Rdohm0499-93-62 12:25:00 Test Item Value Reference Range Interpretation Comments Albumin/Globulin Ratio (test code = 1.4 0.8-2.0 1759-0) [facility] HospitalAlkaline Tebavqdvvsj1021-36-67 12:25:00 Test Item Value Reference Range Interpretation Comments Alkaline Phosphatase (test code = 81 40150 6768-6) [facility] HospitalAmylase Ourps3445-22-25 12:25:00 Test Item Value Reference Range Interpretation Comments Amylase Level (test code = 1798-8) 84 25-125 [facility] HospitalLipase2019-08-04 12:25:00 Test Item Value Reference Range Interpretation Comments Lipase (test code = 3040-3) 18 8-78 [facility] HospitalUrine Oioun2985-68-71 11:53:00 Test Item Value Reference Range Interpretation Comments Urine Color (test code = 5778-6) YELLOW YELLOW [facility] HospitalUrine Knljtjy3996-40-59 11:53:00 Test Item Value Reference Range Interpretation Comments Urine Clarity (test code = 88491-1) SL CLOUDY CLEAR [facility] HospitalUrine Specific Giyoqme9992-76-08 11:53:00 Test Item Value Reference Range Interpretation Comments Urine Specific Bob White (test code = 1.015 1.010-1.025 5811-5) [facility] HospitalUrine [id number] 11:53:00 Test Item Value Reference Range Interpretation Comments Urine pH (test code = 01241-2) 7 5-7 [facility] HospitalU[facility] Leukocyte Rrzudrxx1443-59-57 11:53:00 Test Item Value Reference Range Interpretation Comments Urine Leukocyte Esterase (test code NEGATIVE NEGATIVE = 5799-2) [facility] HospitalUrine Ocvaire8075-10-83 11:53:00 Test Item Value Reference Range Interpretation Comments Urine Nitrite (test code = 09616-6) NEGATIVE NEGATIVE [facility] HospitalUrine [id number] 11:53:00 Test Item Value Reference Range Interpretation Comments Urine Protein (test code = 5804-0) 2+ NEGATIVE H [facility] HospitalU[facility] Glucose (UA)2018-09-13 11:53:00 Test Item Value Reference Range Interpretation Comments Urine Glucose (UA) (test code = NEGATIVE NEGATIVE 2349-9) [facility] HospitalUrine Jfafljf2230-02-96 11:53:00 Test Item Value Reference Range Interpretation Comments Urine Ketones (test code = 55890-2) NEGATIVE NEGATIVE [facility] HospitalU[facility] Qkkfnfsvjwck5011-22-43 11:53:00 Test Item Value Reference Range Interpretation Comments Urine Urobilinogen (test code = 0.2 0.2-1 08054-7) [facility] HospitalU[facility] Rtjbjgbpx6068-45-37 11:53:00 Test Item Value Reference Range Interpretation Comments Urine Bilirubin (test code = 1978-6) NEGATIVE NEGATIVE [facility] HospitalUrine [id number] 11:53:00 Test Item Value Reference Range Interpretation Comments Urine Blood (test code = 86055-0) TRACE NEGATIVE H [facility] HospitalU[facility] [id number] 11:53:00 Test Item Value Reference Range Interpretation Comments Urine WBC (test code = 5821-4) 11-20 0-5 H [facility] HospitalU[facility] [id number] 11:53:00 Test Item Value Reference Range Interpretation Comments Urine RBC (test code = 06070-9) 11-20 0-5 H [facility] HospitalU[facility] Wvkyafzd0071-68-38 11:53:00 Test Item Value Reference Range Interpretation Comments Urine Bacteria (test code = 45511-1) FEW NONE [facility] HospitalUrine Epithelial Bubuc9596-80-91 11:53:00 Test Item Value Reference Range Interpretation Comments Urine Epithelial Cells (test code = FEW NONE 37202-3) [facility] HospitalUrine [id number] 11:53:00 Test Item Value Reference Range Interpretation Comments Urine Test (test code = NEGATIVE NEGATIVE 6-3) [facility] HospitalMean Corpuscular Hemoglobin Concent 2018-09-13 11:45:00 Test Item Value Reference Range Interpretation Comments Mean Corpuscular Hemoglobin Concent 35.1 31-35 H (test code = 786-4) [facility] HospitalRed Cell Distribution Eoapv7439-04-49 11:45:00 Test Item Value Reference Range Interpretation Comments Red Cell Distribution Width (test code 13.5 11.7-14.4 = 18680-3) [facility] HospitalPlatelet Lowld1590-12-32 11:45:00 Test Item Value Reference Range Interpretation Comments Platelet Count (test code = 777-3) 318 140-360 [facility] HospitalNeutrophils (%) (Auto)2018-09-13 11:45:00 Test Item Value Reference Range Interpretation Comments Neutrophils (%) (Auto) (test code = 81.5 38.7-80.0 H 73396-2) [facility] HospitalLymphocytes (%) (Auto)2018-09-13 11:45:00 Test Item Value Reference Range Interpretation Comments Lymphocytes (%) (Auto) (test code = 9.7 18.0-39.1 L 736-9) [facility] HospitalMonocytes (%) (Auto)2018-09-13 11:45:00 Test Item Value Reference Range Interpretation Comments Monocytes (%) (Auto) (test code = 7.9 4.4-11.3 5905-5) [facility] HospitalEosinophils (%) (Auto)2018-09-13 11:45:00 Test Item Value Reference Range Interpretation Comments Eosinophils (%) (Auto) (test code = 0.0 0.0-6.0 713-8) [facility] HospitalBasophils (%) (Auto)2018-09-13 11:45:00 Test Item Value Reference Range Interpretation Comments Basophils (%) (Auto) (test code = 0.3 0.0-1.0 706-2) [facility] HospitalIM GRANULOCYTES %2018-09-13 11:45:00 Test Item Value Reference Range Interpretation Comments IM GRANULOCYTES % (test code = IM 0.6 0.0-1.0 GRANULOCYTES %) [facility] (Auto)2018-09-13 11:45:00 Test Item Value Reference Range Interpretation Comments Neutrophils # (Auto) (test code = 15.3 2.1-6.9 H 751-8) [facility]Lymphocytes # (Auto)2018-09-13 11:45:00 Test Item Value Reference Range Interpretation Comments Lymphocytes # (Auto) (test code = 1.8 1.0-3.2 79037-3) [facility]Mon[facility] # (Auto)2018-09-13 11:45:00 Test Item Value Reference Range Interpretation Comments Monocytes # (Auto) (test code = 742-7) 1.5 0.2-0.8 H [facility]Eosinophils # (Auto)2018-09-13 11:45:00 Test Item Value Reference Range Interpretation Comments Eosinophils # (Auto) (test code = 0.0 0.0-0.4 711-2) [facility]Basophils # (Auto)2018-09-13 11:45:00 Test Item Value Reference Range Interpretation Comments Basophils # (Auto) (test code = 704-7) 0.1 0.0-0.1 [facility] HospitalAbsolute Immature Granulocyte (auto 2018-09-13 11:45:00 Test Item Value Reference Range Interpretation Comments Absolute Immature Granulocyte (auto 0.12 0-0.1 H (test code = Absolute Immature Granulocyte (auto) [facility] HospitalWhite Blood [id number] 11:45:00 Test Item Value Reference Range Interpretation Comments White Blood Count (test code = 6690-2) 18.82 4.8-10.8 H [facility] HospitalRed Blood [id number] 11:45:00 Test Item Value Reference Range Interpretation Comments Red Blood Count (test code = 789-8) 5.30 3.6-5.1 H [facility] HospitalHemoglobin2019-08-04 11:45:00 Test Item Value Reference Range Interpretation Comments Hemoglobin (test code = 88821-8) 16.2 12.0-16.0 H [facility] HospitalHematocrit2019-08-04 11:45:00 Test Item Value Reference Range Interpretation Comments Hematocrit (test code = 4544-3) 46.1 34.2-44.1 H [facility] HospitalMean Corpuscular [id number] 11:45:00 Test Item Value Reference Range Interpretation Comments Mean Corpuscular Volume (test code = 87.0 81-99 787-2) [facility] HospitalMean Corpuscular [id number] 11:45:00 Test Item Value Reference Range Interpretation Comments Mean Corpuscular Hemoglobin (test code 30.6 28-32 = 785-6) [facility]"
[2021-06-11 11:24] LABS: Urine Blood 3+ (Negative); Urine Glucose Trace (Negative); Urine Protein 3+ (Negative); Urine pH 6.5 (5.0-7.0)
[2021-06-11 11:45] LABS: Urine Amorphous Sediment 1+ /HPF (NONE SEEN); Urine Bacteria 20-50 /HPF (<20); Urine Mucus 1+ /HPF (NONE SEEN)
--- NOTE | 2021-06-11 11:58 | EDPHYS ---
Physician Documentation [facility] Name: Tata Friedman Age: 51 yrs Sex: Female : 1970 Arrival Date: 06/11/2021 Time: 10:20 Bed 14 Private MD: ED Physician Catracho Powell HPI: 06/11 10:41 This 51 yrs old Female presents to ER via Ambulatory with complaints of Painful Cough, pm1 Pain With Urination, Back Pain. 10:41 The patient presents with urinary symptoms, dysuria. pm1 10:41 Onset: The symptoms/episode began/occurred yesterday. Modifying factors: The symptoms pm1 are alleviated by nothing, the symptoms are aggravated by urinating. Associated signs and symptoms: Pertinent positives: dysuria, Pertinent negatives: diarrhea, fever, nausea, vomiting. Severity of symptoms: in the emergency department the symptoms are unchanged. The patient has not experienced similar symptoms in the past. The patient has not recently seen a physician. 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 - Social history:: Smoking status: Patient reports the use of cigarette tobacco products, smokes one-half pack cigarettes per day. ROS: 10:41 Positive for flank pain, burning with urination, of the right low back. pm1 10:41 Constitutional: Negative for fever, chills, and weight loss. 10:41 Cardiovascular: Negative for chest pain, palpitations, and edema, Respiratory: Negative for shortness of breath, cough, wheezing, and pleuritic chest pain, Abdomen/GI: Negative for abdominal pain, nausea, vomiting, diarrhea, and constipation. 10:41 Skin: Negative for injury, rash, and discoloration, Neuro: Negative for headache, weakness, numbness, tingling, and seizure. 10:41 Back: Positive for flank pain, on the right. 10:41 All other systems are negative. Exam: 10:41 Constitutional: This is a well developed, well nourished patient who is awake, alert, pm1 and in no acute distress. Head/Face: Normocephalic, atraumatic. 10:41 Skin: Warm, dry with normal turgor. Normal color with no rashes, no lesions, and no evidence of cellulitis. MS/ Extremity: Pulses equal, no cyanosis. Neurovascular intact. Full, normal range of motion. 10:41 Cardiovascular: Exam negative for acute changes, Rate: normal, Rhythm: regular, Pulses: no pulse deficits are appreciated, Heart sounds: normal, normal S1and S2. 10:41 Respiratory: Exam negative for acute changes, respiratory distress, shortness of breath, Breath sounds: are clear throughout. 10:41 Abdomen/GI: Inspection: abdomen appears normal, Palpation: abdomen is soft and non-tender, in all quadrants. 10:41 Back: pain, is absent, normal spinal alignment noted, vertebral tenderness, is not appreciated. 10:41 Neuro: Exam negative for acute changes, Orientation: is normal, Mentation: is normal, Motor: is normal, moves all fours. Vital Signs: 10:26 BP 134 / 89; Pulse 82; Resp 16; Temp 99.3(O); Pulse Ox 98% on R/A; Weight 53.52 kg; vg1 Height 5 ft. 6 in. (167.64 cm); Pain 8/10; 12:11 BP 136 / 84; Pulse 89; Resp 17; Pulse Ox 99% on R/A; ld1 10:26 Body Mass Index 19.05 (53.52 kg, 167.64 cm) vg1 MDM: 10:43 Patient medically screened. pm1 11:56 Data reviewed: vital signs. Data interpreted: Pulse oximetry: on room air is 98 %. pm1 Interpretation: normal. Counseling: I had a detailed discussion with the patient and/or guardian regarding: the historical points, exam findings, and any diagnostic results supporting the discharge/admit diagnosis, lab results, the need for outpatient follow up, to return to the emergency department if symptoms worsen or persist or if there are any questions or concerns that arise at home. 06/11 10:36 Order name: Urine Microscopic Only; Complete Time: 11:51 pm1 06/11 11:24 Order name: Urine Dipstick-Ancillary; Complete Time: 11:41 EDMS 06/11 11:26 Order name: Urine --Ancillary (enter results); Complete Time: 11:41 eb 06/11 11:48 Order name: Urine Culture [facility] 06/11 10:36 Order name: Urine Dipstick-Ancillary (obtain specimen); Complete Time: 11:22 pm1 06/11 10:36 Order name: Urine Test (obtain specimen); Complete Time: 11:22 pm1 Administered Medications: 12:06 Drug: Rocephin (cefTRIAXone) 1 grams Route: IM; Site: left gluteus; ld1 12:11 Follow up: Response: No adverse reaction ld1 12:06 Drug: [place] (HYDROcodone-acetaminophen) 10 mg-325 mg 1 tabs Route: PO; ld1 12:11 Follow up: Response: No adverse reaction ld1 Disposition: 18:48 Co-signature as Attending Physician, Catracho Powell MD. rn Disposition Summary: 06/11/21 11:57 Discharge Ordered Location: Home pm1 Problem: new pm1 Symptoms: have improved pm1 Condition: Stable pm1 Diagnosis - UTI/ Urinary tract infection, site not specified pm1 Followup: pm1 - With: Emergency Department - When: As needed - Reason: Worsening of condition Followup: pm1 - With: Private Physician - When: 2 - 3 days - Reason: Recheck today's complaints, Continuance of care, Re-evaluation by your physician Discharge Instructions: - Discharge Summary Sheet pm1 - Urinary Tract Infection, Adult pm1 Forms: - Medication Reconciliation Form pm1 - Thank You Letter pm1 - Antibiotic Education pm1 - Prescription Opioid Use pm1 - Work release form eb Prescriptions: - Pyridium 200 mg Oral Tablet - take 1 tablet by ORAL route every 8 hours for 3 days; 9 tablet; Refills: 0, pm1 Product Selection Permitted - Bactrim DS 800-160 mg Oral Tablet - take 1 tablet by ORAL route every 12 hours for 10 days; 20 tablet; Refills: 0, pm1 Product Selection Permitted - Tylenol-Codeine #3 300 mg-30 mg Oral - take 2 tablet by ORAL route every 6 hours As needed; 20 tablet; Refills: 0, pm1 Product Selection Permitted Signatures: Dispatcher [employer] [facility] Catracho Powell MD MD rn Marinas, Patrick, PLASTIC MOLDER PLASTIC MOLDER pm1 Jane Tapia RN RN vg1 Dibbern, Renu, RN RN ld1
--- NOTE | 2021-06-11 11:58 | ER ---
Nurse's Notes [facility] Name: Tata Friedman Age: 51 yrs Sex: Female : 1970 Arrival Date: 06/11/2021 Time: 10:20 Bed 14 Private MD: Diagnosis: UTI/ Urinary tract infection, site not specified Presentation: 06/11 10:26 Chief complaint: Patient states: Pain with urination began yesterday, states ABD vg1 pressure with nausea and Right flank pain; also states minimal urination. Denies vomiting. Coronavirus screen: Vaccine status: Patient reports being unvaccinated. Client denies travel out of the [place] in the last 14 days. Ebola Screen: Patient denies exposure to infectious person. Patient denies travel to an Ebola-affected area in the 21 days before illness onset. Initial Sepsis Screen: Does the patient meet any 2 criteria? No. Patient's initial sepsis screen is negative. Does the patient have a suspected source of infection? No. Patient's initial sepsis screen is negative. Risk Assessment: Do you want to hurt yourself or someone else? Patient reports no desire to harm self or others. Onset of symptoms was June 10, 2021. 10:26 Method Of Arrival: Ambulatory vg1 10:26 Acuity: CAROLINE 3 vg1 Triage Assessment: 10:28 General: Appears uncomfortable, Behavior is calm, cooperative. Pain: Complains of pain vg1 in abdomen and right flank. : Reports inability to void, pain in right in suprapubic area flank(s). Musculoskeletal: Circulation, motion, and sensation intact. 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 - Social history:: Smoking status: Patient reports the use of cigarette tobacco products, smokes one-half pack cigarettes per day. Screenin:27 Abuse screen: Denies threats or abuse. Nutritional screening: No deficits noted. ap3 Tuberculosis screening: No symptoms or risk factors identified. Fall Risk None identified. Assessment: 11:26 General: Appears uncomfortable, Behavior is calm, cooperative, appropriate for age. ap3 Pain: Complains of pain in low back area Aggravated by urination. Neuro: Level of Consciousness is awake, alert, obeys commands, Oriented to person, place, time, situation, Appropriate for age. Cardiovascular: Patient's skin is warm and dry. Respiratory: Airway is patent Respiratory effort is even, unlabored, Respiratory pattern is regular, symmetrical. : Reports burning with urination, urgency, urinary frequency. Vital Signs: 10:26 BP 134 / 89; Pulse 82; Resp 16; Temp 99.3(O); Pulse Ox 98% on R/A; Weight 53.52 kg; vg1 Height 5 ft. 6 in. (167.64 cm); Pain 8/10; 12:11 BP 136 / 84; Pulse 89; Resp 17; Pulse Ox 99% on R/A; ld1 10:26 Body Mass Index 19.05 (53.52 kg, 167.64 cm) vg1 ED Course: 10:20 Patient arrived in ED. ds1 10:28 Triage completed. vg1 10:28 Arm band placed on. vg1 10:36 Richard Marroquin NP is PHCP. pm1 10:36 Catracho Powell MD is Attending Physician. pm1 11:18 Alexa Guillen, [place] is Primary Nurse. ap3 11:22 Patient has correct armband on for positive identification. Bed in low position. Call mh5 light in reach. Warm blanket given. Pulse ox on. NIBP on. 11:22 Urine Microscopic Only Sent. mh5 11:22 Urine collected: clean catch specimen, akhil colored. mh5 12:11 No provider procedures requiring assistance completed. Patient did not have IV access ld1 during this emergency room visit. Administered Medications: 12:06 Drug: Rocephin (cefTRIAXone) 1 grams Route: IM; Site: left gluteus; ld1 12:11 Follow up: Response: No adverse reaction ld1 12:06 Drug: [place] (HYDROcodone-acetaminophen) 10 mg-325 mg 1 tabs Route: PO; ld1 12:11 Follow up: Response: No adverse reaction ld1 Outcome: 11:57 Discharge ordered by . pm1 12:12 Discharged to home ambulatory. ld1 12:12 Condition: stable 12:12 Discharge instructions given to patient, Instructed on discharge instructions, follow up and referral plans. medication usage, Demonstrated understanding of instructions, follow-up care, medications, Prescriptions given X 3. 12:12 Patient left the ED. ld1 Signatures: Domonique Gallagher ds1 Richard Marroquin NP ASSOCIATE PUBLISHER pm1 Paula Crouch5 Alexa Guillen RN RN ap3 Jane Tapia RN RN vg1 Renu Baig RN RN ld1
[2021-06-11] MEDS ORDERED: CEFTRIAXONE 1000 MG/VIAL ONE (12:05)
[2021-06-11] MEDS ORDERED: HYDROCODONE/APAP 10/325 TAB ONE (12:05)
[2021-06-11 12:25] VITALS: TEMP 99.3
[2021-06-11 12:35] VITALS: BP 136/84; O2SAT 99
== END 2021-06-11 12:12 | disposition home or self-care (01) ==
LOC: ER 10:18
DX: N39.0 Urinary tract infection, site not specified (principal); F20.9 Schizophrenia, unspecified; F17.210 Nicotine dependence, cigarettes, uncomplicated
CPT/HCPCS: 81003; 81015; 81025; 87077; 87086; 87088; 87186; 96372; 99284

== ENCOUNTER 2022-07-23 09:38 | Emergency (ER) | payer OTHER ==
--- OUTSIDE RECORDS SUMMARY | 2022-07-23 09:43 | XMS REPORT | Continuity of Care Document ---
:1970 Author Organization [facility] t Address [address] [facility] [address] [place] [address] Care Team Providers Name Role Phone NO, PCP Primary Care Physician Unavailable Bushra Vera Attending Clinician BUSHRA HALL Attending Clinician Unavailable Yasmin Betts MD Attending Clinician YASMIN BETTS Attending Clinician Unavailable HERNESTO PINEDA Attending Clinician Unavailable Payers Payer Name Policy Type Policy Number Effective Date Expiration Date S ource Problems Condition Condition Condition Status Onset Resolution Last Treating Co mments Source Name Details Category Date Date Treatment Clinician Date No known No known Disease Unive rs active active ity of problems problems [facility] Allergies, Adverse Reactions, Alerts Allergy Allergy Status Severity Reaction(s) Onset Inactive Treating Comm ents Source Name Type Date Date Clinician Ibuprofe Propensi Active Rash Univer s n ty to 03-03 ity of adverse 00:00: [place] reaction 00 [facility] IBUPROFE DRUG Active Rash Univers N INGREDI 03-03 ity of 00:00: [place] 00 [facility] NO KNOWN Drug Active Univers ALLERGIE Class ity of S [facility] Social History Social Habit Start Date Stop Date Quantity Comments Source Sex Assigned At Universit y of [facility] Exposure to Not sure [facility] SARS-CoV-2 (event) [facility] Cigarettes smoked 2020-03-03 2020-03-03 Univers ity of current (pack per 00:00:00 00:00:00 ) - Reported [place] Cigarette 2020-03-03 2020-03-03 University of pack-years 00:00:00 00:00:00 [facility] Tobacco use and 2020-03-03 2020-03-03 Former user Universi ty of exposure 00:00:00 00:00:00 [facility] Alcohol intake 2020-03-03 2020-03-03 Ex-drinker [facility] 00:00:00 00:00:00 (finding) [facility] Smoking Status Start Date Stop Date Source Current every day smoker 2020-03-03 00:00:00 Uni versity of [facility] Medications Ordered Filled Start Stop Current Ordering Indication Dosage Frequency Signature Comments Components Source Medication Medication Date Date Medication? Clinician (SIG) Name Name benzonatate Yes [id number] 100mg Take 1 Univers 100 mg 1-22 capsule by ity of capsule 00:00: mouth 3 [place] 00 (three) Medical times Branch daily as needed for Cough. albuterol Yes [id number] 2{puff} Inhale 2 Univers 90 1-22 Puffs ity of mcg/actuati 00:00: every 4 [place] as on inhaler 00 (four) Medical hours as Branch needed for Wheezing or Shortness of Breath. diphenhydrA 2019- No 25mg 25 mg, Uni vers MINE 09-10 Slow IV ity of (BENADRYL) 17:45: 16:36 Push, [place] injection 00 :00 ONCE, 1 Medical 25 mg dose, Sat Branch 09/11/19 at 1245, STAT haloperidol 2019- No 2.5mg 2.5 mg, U nivers lactate [...] 1 dose, 09/11/19 at 1145, GAGE buprenorphi 2020-[address] 16 Un keon ne-naloxone 8-01 mg under ity of 8-2 mg 16:34: the tongue [place] sublingual 41 daily. Medical film Branch cloNIDine 2020-0 Yes .2mg Take 0.2 Univ ers 0.2 mg 8-01 mg by ity of tablet 16:34: mouth 2 [place] [address] (two) Medical times Branch daily. QUEtiapine 2020-0 Yes 50mg Take 50 mg U nivers 50 mg 8-01 by mouth ity of tablet 16:34: daily. [place] [address] Medical Branch mirtazapine 2020-0 Yes 15mg Take 15 mg Univers 15 mg 8-01 by mouth ity of tablet 16:34: at [place] [address] bedtime. Medical Branch lithium 2020-0 Yes 900mg [...] by ity of tablet 16:34: mouth 2 [place] [address] (two) Medical times Branch daily. haloperidol 2020-0 [...] by ity of tablet 16:34: mouth 2 [place] 41 (two) Medical times Branch daily. QUEtiapine 2020-0 Yes 50mg Take 50 mg U nivers 50 mg 8-01 by mouth ity of tablet 16:34: daily. [place] [address] Medical Branch mirtazapine 2020-0 Yes 15mg Take 15 mg Univers 15 mg 8-01 by mouth ity of tablet 16:34: at [place] 41 bedtime. Medical Branch lithium 2020-0 Yes 900mg [...] 41 daily. Medical Branch famotidine 2020-0 Yes [id number] 20mg Take 1 Univers 20 mg 8-01 tablet by ity of tablet 00:00: mouth 2 [place] 00 (two) Medical times Branch daily. proMETHazin 2019-0 Yes [id number] 25mg Take 1 Univers e 25 mg 8-01 tablet by ity of tablet 00:00: mouth [place] 00 every 6 Medical (six) Branch hours as needed for Nausea and Vomiting (N/V). famotidine 2020-0 Yes [id number] 20mg Take 1 Univers 20 mg 8-01 tablet by ity of tablet 00:00: mouth 2 [place] 00 (two) Medical times Branch daily. proMETHazin 2020-0 Yes [id number] 25mg Take 1 Univers e 25 mg 8-01 tablet by ity of tablet 00:00: mouth [place] 00 every 6 Medical (six) Branch hours as needed for Nausea and Vomiting (N/V). Cefdinir Cefdinir 2018-0 Yes Grant L [address] [facility] (Omnicef) (Omnicef) 8-04 Mohan Sas Programmer Analyst [facility] 300 Mg 300 Mg 00:00: Patient Capsule Capsule 00 [facility] Ondansetron Ondansetron 2018-0 Yes Grant L [address] [facility] Hcl Hcl 8-04 Mohan Sas Programmer Analyst Hours as [facility] (Zofran*) 4 (Zofran*) 4 00:00: needed for Patient Mg Tablet Mg Tablet 00 Nausea [facility] Benztropine Benztropine Yes [address] [facility] Mesylate 2 Mesylate 2 Day Mery es Mg Tablet Mg Tablet Patie nt Medical [place] Buprenorphi Buprenorphi Yes [address] [facility] Hcl/Naloxon Hcl/Naloxon P atient e Hcl e Hcl Medical (Suboxone 8 (Suboxone 8 C enter Mg-2 Mg Sl Mg-2 Mg Sl Film) 1 Film) 1 Each Film Each Film Clonidine Clonidine Yes [address] [facility] Hcl 0.1 Mg Hcl 0.1 Mg Day Mery es Tablet Tablet Patient [facility] [place] Yes [address] [facility] Carbonate Carbonate [facility] 450 Mg 450 Mg Patient Tablet.er Tablet.er Medic al Center Mirtazapine Mirtazapine Yes [address] [facility] (Remeron) (Remeron) [facility] 15 Mg 15 Mg Patient Tablet [facility] Oxcarbazepi Oxcarbazepi Yes [address] [facility] (Trileptal) (Trileptal) P atient 300 Mg 300 Mg Medical Tablet Tablet Center Quetiapine Quetiapine Yes [address] [facility] Fumarate Fumarate [facility] (Seroquel) (Seroquel) Pat ient 25 Mg 25 Mg Medical Tablet Tablet Center Vital Signs Vital Name Observation Time Observation Value Comments Source Systolic blood 2020-03-03 18:05:00 130 mm[Hg] [facility] Diastolic blood 2020-03-03 18:05:00 89 mm[Hg] [facility] Heart rate 2020-03-03 18:05:00 99 /min [facility] Respiratory rate 2020-03-03 18:05:00 17 /min [facility] Oxygen saturation in 2020-03-03 18:05:00 99 /min [facility] Arterial blood by [facility] Pulse oximetry Branch Body temperature 2020-03-03 15:55:00 37.06 Leida [facility] Body weight 2020-03-03 15:53:00 54.432 kg [facility] Systolic blood 2019-09-11 17:07:31 137 mm[facility]Hg[facility] Diastolic blood 2019-09-11 17:07:31 91 mm[Hg] Unive [facility] Heart rate 2019-09-11 17:07:31 98 /min [facility] Body temperature 2019-09-11 17:07:31 37.17 Leida [facility] Respiratory rate 2019-09-11 17:07:31 22 /min [facility] Oxygen saturation in 2019-09-11 17:07:31 98 /min [facility] blood by [facility] Pulse oximetry Branch Body weight 2019-09-11 16:34:00 50 kg [facility] Procedures Procedure Date / Time Performed Performing Clinician Sourromain e XR CHEST 2 VW 2020-03-03 16:39:10 Bushra Hall [facility] POCT TEST 2020-03-03 16:16:00 Bushra Hall [facility] COVID-19 (ID NOW RAPID 2020-03-03 16:16:00 [facility] Medical [place] CBC WITH DIFF 2019-09-11 17:23:00 Yasmin Betts [facility] TROPONIN I 2019-09-11 17:01:00 Yasmin Betts [facility] XR ABDOMEN ACUTE 2019-09-11 16:59:22 Yasmin Betts [facility] EKG-12 LEAD 2019-09-11 16:49:04 Yasmin Betts [facility] LIPASE 2019-09-11 16:42:00 Yasmin Betts [facility] TEST, SERUM 2019-09-11 16:42:00 Yasmin Betts [facility] HEPATIC FUNCTION PANEL 2019-09-11 16:42:00 Yasmin Betts [facility] ([id number]) Medical [place] (ALB,T.PRO,BILI T,BU/BC,ALT,AST,ALK PHOS) BASIC METABOLIC PANEL 2019-09-11 16:42:00 Yasmin Betts [facility] (NA, K, CL, CO2, Medical Branch GLUCOSE, BUN, CREATININE, CA) LITHIUM 2019-09-11 16:42:00 Yasmin Betts [facility] Computed tomography of 2018-09-13 00:00:00 GRANT MOHAN [facility] Patient abdomen and pelvis Medical Cente r with contrast Encounters Start End Encounter Admission Attending Care Care Encounter Source Date/Time Date/Time Type Type Clinicians Facility Department ID 2020-03-03 2020-03-03 Emergency Ibikunle, TRAUMA [id number] Univers 09:55:00 12:07:00 [place] F CENTER 350.1.13.10 [place] [id number] [address] Branch 2020-03-03 2020-03-03 Emergency X IBJUNIOR, [facility] ERT [id number] Univers 09:55:00 09:55:00 FOLUSHO ity of [facility] 2019-09-11 2019-09-11 Emergency Yasmin Betts TRAUMA [id number] Univers 11:27:00 14:04:00 W CENTER 350.1.13.10 [id number] [address] 2019-09-11 2019-09-11 Emergency X SHONNA BETTSIAN [facility] ERT [id number] Univers 11:27:00 11:27:00 ity of [facility] 2018-09-13 2018-09-13 Departed 1 [facility] [id number] 11:09:00 18:00:[address] Results Test Description Test Time Test Comments Results Result Comments Source COVID-19 (ID NOW RAPID TESTING) 2020-03-03 17:05:00 Test Item Value Reference Range Interpretation Comme nts SARS-CoV-2 Rapid ID NOW (test code Not Detected Not Detected = 35871-7) SHALOM (test code = SHALOM) ID NOW COVID-19 Assay is an isothermal nucleic acid amplification test intended for the qualitative detection of nucleic acid from SARS-CoV-2 viral RNA in nasopharyngeal ([address]REELANCE COURT REPORTER) specimens. It is used under Emergency Use [...] indicated. Lab Interpretation (test code = Normal 69111-6) [facility] [id number] 16:16:00 Test Item Value Reference Range Interpretation Comments POCT PREG (test code = 1605) negative On board controls acceptable with present C Line (test code = 3574) POCT PREG LOT # (test code = 3575) [id number] POCT PREG TEST DATE (test 10/10/2021 code = 3576) Lab Interpretation (test code = Normal 75032-4) [facility]domen [id number] 18:23:32 No acute cardiopulmonary process. Nonobstructive bowel [...] of small bowel loops is noted in thepelvis.There is fecal material noted throughout the colon, probablymoderate fecal burden. Cholecystectomy clips seen in the right upper quadrant. No suspiciouscalcification identified. [facility], Radiant Results Inft User - 09/11/2019 1:24 PM CDTXR ABDOMEN ACUTE SERIESHISTORY: vomiting, eval for obstruction COMPARISON: None available.FINDINGS:Chest: Lungs are mildly hyperinflated. No [...] seen in the right upper quadrant. No betancur spiciouscalcification identified.IMPRESSIONNo acute cardiopulmonary process.Nonobstructive bowel gaspattern.[facility] Troponin [id number] 17:47:00 Test Item Value Reference Range Interpretation Comments TROPONIN I (test 0.013 ng/mL See_Comment [Automated code = 0455266186) message] The system which generated this result [...] ? Lab Interpretation Normal (test code = 20615-3) [facility] with [id number] 17:39:00 Test Item Value Reference Range Interpretation Comments WBC (test code = See_Comment [Automated 6090-2) message] The sy stem which generated this result transmitted reference range : 4.30 - 11.10 10*3/?L. The reference range was not used to interpret this result as normal/abnormal . RBC (test code = See_Comment [Automated 9-8) message] The sy stem which generated this [...] RDW-SD (test code = 43.0 fL 39-49.9 36714-7) RDW-CV (test code = 12.9 % 12-15.5 788-0) PLT (test code = See_Comment [Automated 777-3) message] The sy stem which generated this result transmitted reference range : 166 - 358 10*3/ ?L. The reference r jenn was not used to interpret this result as normal/abnormal . MPV (test code = 11.7 fL 9.5-12.9 19067-1) NRBC/100 WBC (test See_Comment [Automat ed code = 9610471633) message] The system which generated this result transmitted reference range : 0.0 - 10.0 /100 WBCs. The refer ence range was not u sed to interpret th is result as normal/abnormal . NRBC x10^3 (test code <0.01 See_Comment [Auto mated = 9634563320) message] The s ystem which generated this result transmitted reference range : 10*3/?L. The reference range was not used to interpret this result as normal/abnormal . GRAN MAT (NEUT) % 73.1 % (test code = 770-8) IMM GRAN % (test code 0.20 % = 2072223814) LYMPH % (test code = 17.1 % 736-9) MONO % (test code = 8.2 % 5905-5) EOS % (test code = 0.6 % 713-8) BASO % (test code = 0.8 % 706-2) GRAN MAT x10^3(ANC) 6.47 10*3/uL 1.88-7.09 (test code = 7244720094) IMM GRAN x10^3 (test <0.03 0-0.06 code = 1772608865) LYMPH x10^3 (test code 1.51 10*3/uL 1.32-3.29 = 731-0) MONO x10^3 (test code 0.73 10*3/uL 0.33-0.92 = 742-7) EOS x10^3 (test code = 0.05 10*3/uL 0.03-0.39 711-2) BASO x10^3 (test code 0.07 10*3/uL 0.01-0.07 = 704-7) Lab Interpretation Abnormal (test code = 73057-3) [facility]2020-[facility]-01 17:34:00 Test Item Value Reference Range Interpretation Comments [place] (test code = <0.2 0.6-1.2 L 6053475852) SHALOM (test code = SHALOM) Toxic Range: ? Greater than 1.2 mmol/L Lab Interpretation (test Abnormal code = 75916-9) [facility] (ALB, T.PRO, BILI T, BU/BC, ALT, AST, ALK PHOS)2019-09-11 17:20:00 Test Item Value Reference Range Interpretation Comments TOTAL BILI (test code = 8638586674) 0.6 mg/dL 0.1-1.1 BILI UNCON (test code = 3785403253) 0.7 mg/dL 0.1-1.1 BILI CONJ (test code = 0810301599) 0.0 mg/dL 0-0.3 T PROTEIN (test code = 7249996354) 7.9 g/dL 6.3-8.2 ALBUMIN (test code = 2976822671) 4.9 g/dL 3.5-5 ALK PHOS (test code = 7434544220) 106 U/L 34-122 ALTv (test code = 1742-6) 70 U/L 5-35 H AST(SGOT) (test code = 5188678648) 85 U/L 13-40 H Lab Interpretation (test code = Abnormal 96569-9) [facility] Center[facility] Met[facility] Panel (NA, K, CL, CO2, GLUCOSE, BUN, CREATININE, CA)2019-09-11 17:20:00 Test Item Value Reference Range Interpretation Comments NA (test code = 137 mmol/L 135-145 8307728808) K (test code = 4.2 mmol/L 3.5-5 8487746641) CL (test code = 105 mmol/L 98-108 1283091643) CO2 TOTAL (test code = 26 mmol/L 23-31 9458422396) AGAP (test code = 2-16 6921421792) BUN (test code = 15 mg/dL 7-23 4946979320) GLUCOSE (test code = 127 mg/dL 70-110 H 9926595891) CREATININE (test code = 0.55 mg/dL 0.5-1.04 9575438336) CALCIUM (test code = 10.4 mg/dL 8.6-10.6 0356483163) eGFR Calculation mL/min/1.73m2 (Non-) (test code = 3038246798) eGFR Calculation mL/min/1.73m2 () (test code = 2451850109) SHALOM (test code = SHALOM) Association of [...] tests). Lab Interpretation Abnormal (test code = 44921-1) [facility] CenterLipase [id number] 17:20:00 Test Item Value Reference Range Interpretation Comments LIPASE (test code = 6921682819) 106 U/L 0-220 Lab Interpretation (test code = Normal 11248-9) [facility] CenterPregnancy Test, [id number] 17:15:00 Test Item Value Reference Range Interpretation Comments PREG SERUM (test code Negative = 0194886272) SHALOM (test code = SHALOM) Less than 10 IU/L. ?If low titer or ectopic is suspected, resubmit specimen in 48-72 hours. [facility] SINGLE (PORTABLE)2018-09-13 16:05:00 [place] [address] Patient Name: CECI GRAHAM MR #: [id number] : 1970 Age/Sex: 48/F Req #:[id number] Adm Physician: Ordered by: GRANT MOHAN [address] REPORTER Report #: [id number] Location: ER Room/Bed: Procedure: [id number] DX/CHEST SINGLE (PORTABLE) Exam Date: 09/13/18 Exam Time: 1514 REPORT STATUS: Signed EXAMINATION: CHEST SINGLE (PORTABLE) INDICATION: cough, rule out pneumonia [id number] COMPARISON: None FINDINGS: PA and lateral views TUBES and LINES: None. LUNGS: Lungs are well inflated. There is no evidence of pneumonia or pulmonary edema. PLEURA: Trace blunting of the right lateral costophrenic angle. No pneumothorax. HEART AND MEDIASTINUM: The cardiomediastinal silhouette is unremarkable.. BONES AND SOFT TISSUES: No focal osseous lesions. Soft tissues are unremarkable. UPPER ABDOMEN: No free air under the diaphragm. IMPRESSION: Trace blunting of the right lateral costophrenic angle may be the result of developing pleural effusion. No infiltrates. Signed by: Robyn Acosta 09/13/2018 4:07 PM Dictated By: CELESTINA POLANCO MD 06 COPY TO: GRANT MOHAN NPCT ABDOMEN/PELVIS [id number] 14:45:00 [place] [address] Patient Name: CECI GRAHAM MR #: [id number] : 1970 Age/Sex: 48/F Req #: [id number] Adm Physician: Ordered by: GRANT MOHAN [address] REPORTER Report #: [id number] Location: ER Room/Bed: Procedure: [id number] CT/CT ABDOMEN/PELVIS W Exam Date: 09/13/18 Exam Time: 1414 REPORT STATUS: Signed ADDENDUM #1 Subcentimeter air cyst in the right lower lobe. Signed by: Dr. Celestina Polanco MD on 09/13/2018 4:[address] Abdomen And Pelvis with Intravenous Contrast INDICATION: Nausea, vomiting upper abdominal pain, n/v/d, rule out colitis [id number] TECHNIQUE: Thin collimation axial images obtained from the diaphragm to the level of the pubic symphysis following the uneventful administration of 100 cc of low osmolar, nonionic intravenous con trast. Dose reduction techniques used: Automated exposure control, adjustment of the mAs and/or kVp according to patient size, standardized low-dose protocol, and/or iterative reconstruction technique.RADIATION DOSE: Total DLP: 170.33 mGy*cm Estimated effective dose: (DLP x 0.015 x size factor) mSv CTDIvol has been reviewed. It is below the limits set by the Radiation Protocol Committee (RPC). COMPARISON: None. ABDOMEN FINDINGS: Lung Bases: Clear. The visualized portions of the mediastinum are normal.. Liver: Mildly decreased attenuation suggestive of steatosis. No evidence for mass. Gallbladder: Absent. No biliary ductal dilatation. Pancreas: Normal attenuation without mass or ductal dilatation.Divisum morphology of the pancreas duct. Spleen: Normal in size. No evidence of mass. Adrenal Glands: No evidence for mass. Kidneys: Right: Normal enhancement. No soft tissue [...] or inflammation. Normal appendix. 2. Status post cholecystectomy and hysterectomy. 3. Pancreas divisum. 4. Steatosis. Signed by: Dr. Celestina Polanco MD on 09/13/2018 2:49 PM Dictated By: CELESTINA POLANCO MD 1608 Transcribed By: BENI on 09/13/18 4309 COPY TO: GRANT MOHAN [id number] 12:25:00 Test Item Value Reference Range Interpretation Comments Albumin (test code = 1751-7) 4.2 3.5-5.0 [facility] 12:25:00 Test Item Value Reference Range Interpretation Comments Globulin (test code = 48474-3) 3.0 2.3-3.5 [facility] AreaAlbumin/Globulin [id number] 12:25:00 Test Item Value Reference Range Interpretation Comments Albumin/Globulin Ratio (test code = 1.4 0.8-2.0 1759-0) [facility] AreaAlkaline [id number] 12:25:00 Test Item Value Reference Range Interpretation Comments Alkaline Phosphatase (test code = 81 40-150 6768-6) [facility] AreaAmylase [id number] 12:25:00 Test Item Value Reference Range Interpretation Comments Amylase Level (test code = 1798-8) 84 25-125 [facility] AreaLipase2019-08-04 12:25:00 Test Item Value Reference Range Interpretation Comments Lipase (test code = 3040-3) 18 8-78 [facility] [id number] 12:25:00 Test Item Value Reference Range Interpretation Comments Sodium Level (test code = 2951-2) 139 136-145 [facility] AreaPotassium [id number] 12:25:00 Test Item Value Reference Range Interpretation Comments Potassium Level (test code = 2823-3) 3.3 3.5-5.1 L [facility] AreaChloride [id number] 12:25:00 Test Item Value Reference Range Interpretation Comments Chloride Level (test code = 2075-0) 103 98-107 [facility] AreaCarbon Dioxide [id number] 12:25:00 Test Item Value Reference Range Interpretation Comments Carbon Dioxide Level (test code = 2027-9) [facility] AreaAnion [id number] 12:25:00 Test Item Value Reference Range Interpretation Comments Anion Gap (test code = 30259-6) 17.3 8-16 H [facility] AreaBlood Urea [id number] 12:25:00 Test Item Value Reference Range Interpretation Comments Blood Urea Nitrogen (test code = 09-04 3094-0) [facility] AreaCreatinine2019-08-04 12:25:00 Test Item Value Reference Range Interpretation Comments Creatinine (test code = 2160-0) 0.78 0.57-1.11 [facility] AreaBUN/Creatinine [id number] 12:25:00 Test Item Value Reference Range Interpretation Comments BUN/Creatinine Ratio (test code = 15 08-04 3097-3) [facility] AreaEstimat Glomerular Filtration [id number] 12:25:00 Test Item Value Reference Range Interpretation Comments Estimat Glomerular Filtration Rate > 60 >60 (test code = 978992988) Ranges were taken from the National Kidney Disease Education Program and the National Kidney Foundation literature.Reference ranges:60 or greater: Byvdgc19- 59 (for 3 consecutive months): Chronic kidneydisease 15 or less: Kidney failure [facility] AreaGlucose [id number] 12:25:00 Test Item Value Reference Range Interpretation Comments Glucose Level (test code = ZJM9672) 143 74-118 H [facility] AreaCalcium [id number] 12:25:00 Test Item Value Reference Range Interpretation Comments Calcium Level (test code = 31916-5) 10.1 8.4-10.2 [facility] AreaMagnesium [id number] 12:25:00 Test Item Value Reference Range Interpretation Comments Magnesium Level (test code = 89966-1) 2.3 1.3-2.1 H [facility] AreaTotal [id number] 12:25:00 Test Item Value Reference Range Interpretation Comments Total Bilirubin (test code = 1975-2) 0.7 0.2-1.2 [facility] AreaAspartate Amino Transf (AST/SGOT)2018-09-13 12:25:00 Test Item Value Reference Range Interpretation Comments Aspartate Amino Transf (AST/SGOT) (test 24 5-34 code = Aspartate Amino Transf (AST/SGOT)) [facility] AreaAlanine Aminotransferase (ALT/SGPT)2018-09-13 12:25:00 Test Item Value Reference Range Interpretation Comments Alanine Aminotransferase (ALT/SGPT) 24 0-55 (test code = 1742-6) [facility] AreaTotal [id number] 12:25:00 Test Item Value Reference Range Interpretation Comments Total Protein (test code = 2885-2) 7.2 6.5-8.1 [facility] AreaUrine [id number] 11:53:00 Test Item Value Reference Range Interpretation Comments Urine Color (test code = 5778-6) YELLOW YELLOW [facility] AreaUrine [id number] 11:53:00 Test Item Value Reference Range Interpretation Comments Urine Clarity (test code = 54216-9) SL CLOUDY CLEAR [facility] AreaUrine Specific [id number] 11:53:00 Test Item Value Reference Range Interpretation Comments Urine Specific [place] (test code = 1.015 1.010-1.025 5811-5) [facility] AreaUrine [id number] 11:53:00 Test Item Value Reference Range Interpretation Comments Urine pH (test code = 55782-9) 7 5-7 [facility] AreaU[facility] Leukocyte [id number] 11:53:00 Test Item Value Reference Range Interpretation Comments Urine Leukocyte Esterase (test code NEGATIVE NEGATIVE = 5799-2) [facility] [id number] 11:53:00 Test Item Value Reference Range Interpretation Comments Urine Nitrite (test code = 88440-3) NEGATIVE NEGATIVE [facility] [id number] 11:53:00 Test Item Value Reference Range Interpretation Comments Urine Protein (test code = 5804-0) 2+ NEGATIVE H [facility] Glucose (UA)2018-09-13 11:53:00 Test Item Value Reference Range Interpretation Comments Urine Glucose (UA) (test code = NEGATIVE NEGATIVE 2349-9) [facility] [id number] 11:53:00 Test Item Value Reference Range Interpretation Comments Urine Ketones (test code = 60696-4) NEGATIVE NEGATIVE [facility] [id number] 11:53:00 Test Item Value Reference Range Interpretation Comments Urine Urobilinogen (test code = 0.2 0.2-1 41803-6) [facility] [id number] 11:53:00 Test Item Value Reference Range Interpretation Comments Urine Bilirubin (test code = 1978-6) NEGATIVE NEGATIVE [facility] [id number] 11:53:00 Test Item Value Reference Range Interpretation Comments Urine Blood (test code = 83490-9) TRACE NEGATIVE H [facility] [id number] 11:53:00 Test Item Value Reference Range Interpretation Comments Urine WBC (test code = 5821-4) 11-20 0-5 H [facility] [id number] 11:53:00 Test Item Value Reference Range Interpretation Comments Urine RBC (test code = 37823-6) 11-20 0-5 H [facility] [id number] 11:53:00 Test Item Value Reference Range Interpretation Comments Urine Bacteria (test code = 19916-0) FEW NONE [facility] Epithelial [id number] 11:53:00 Test Item Value Reference Range Interpretation Comments Urine Epithelial Cells (test code = FEW NONE 91080-9) [facility] [id number] 11:53:00 Test Item Value Reference Range Interpretation Comments Urine Test (test code = NEGATIVE NEGATIVE 6-3) [facility] Corpuscular [id number] 11:45:00 Test Item Value Reference Range Interpretation Comments Mean Corpuscular Volume (test code = 87.0 81-99 787-2) [facility] Corpuscular [id number] 11:45:00 Test Item Value Reference Range Interpretation Comments Mean Corpuscular Hemoglobin (test code 30.6 28-32 = 785-6) [facility] Corp[facility] Hemoglobin [id number] 11:45:00 Test Item Value Reference Range Interpretation Comments Mean Corpuscular Hemoglobin Concent 35.1 31-35 H (test code = 786-4) [facility] Cell Distribution [id number] 11:45:00 Test Item Value Reference Range Interpretation Comments Red Cell Distribution Width (test code 13.5 11.7-14.4 = 67654-6) [facility] Area[facility]atelet [id number] 11:45:00 Test Item Value Reference Range Interpretation Comments Platelet Count (test code = 777-3) 318 140-360 [facility] Area[facility]utrophils (%) (Auto)2018-09-13 11:45:00 Test Item Value Reference Range Interpretation Comments Neutrophils (%) (Auto) (test code = 81.5 38.7-80.0 H 42090-6) [facility] AreaLymphocytes (%) (Auto)2018-09-13 11:45:00 Test Item Value Reference Range Interpretation Comments Lymphocytes (%) (Auto) (test code = 9.7 18.0-39.1 L 736-9) [facility] (%) (Auto)2018-09-13 11:45:00 Test Item Value Reference Range Interpretation Comments Monocytes (%) (Auto) (test code = 7.9 4.4-11.3 5905-5) [facility]osinophils (%) (Auto)2018-09-13 11:45:00 Test Item Value Reference Range Interpretation Comments Eosinophils (%) (Auto) (test code = 0.0 0.0-6.0 713-8) [facility] (%) (Auto)2018-09-13 11:45:00 Test Item Value Reference Range Interpretation Comments Basophils (%) (Auto) (test code = 0.3 0.0-1.0 706-2) [facility] AreaIM GRANULOCYTES %2018-09-13 11:45:00 Test Item Value Reference Range Interpretation Comments IM GRANULOCYTES % (test code = IM 0.6 0.0-1.0 GRANULOCYTES %) [facility] AreaNeutrophils # (Auto)2018-09-13 11:45:00 Test Item Value Reference Range Interpretation Comments Neutrophils # (Auto) (test code = 15.3 2.1-6.9 H 751-8) [facility] AreaLymphocytes # (Auto)2018-09-13 11:45:00 Test Item Value Reference Range Interpretation Comments Lymphocytes # (Auto) (test code = 1.8 1.0-3.2 52765-9) [facility] Area[facility]ocytes # (Auto)2018-09-13 11:45:00 Test Item Value Reference Range Interpretation Comments Monocytes # (Auto) (test code = 742-7) 1.5 0.2-0.8 H [facility] AreaEosinophils # (Auto)2018-09-13 11:45:00 Test Item Value Reference Range Interpretation Comments Eosinophils # (Auto) (test code = 0.0 0.0-0.4 711-2) [facility] Area[facility] # (Auto)2018-09-13 11:45:00 Test Item Value Reference Range Interpretation Comments Basophils # (Auto) (test code = 704-7) 0.1 0.0-0.1 [facility] AreaAbsolute Immature Granulocyte ([id number] 11:45:00 Test Item Value Reference Range Interpretation Comments Absolute Immature Granulocyte (auto 0.12 0-0.1 H (test code = Absolute Immature Granulocyte (auto) [facility] AreaWhite Blood [id number] 11:45:00 Test Item Value Reference Range Interpretation Comments White Blood Count (test code = 6690-2) 18.82 4.8-10.8 H [facility] AreaRed Blood [id number] 11:45:00 Test Item Value Reference Range Interpretation Comments Red Blood Count (test code = 789-8) 5.30 3.6-5.1 H [facility] AreaHemoglobin2019-08-04 11:45:00 Test Item Value Reference Range Interpretation Comments Hemoglobin (test code = 83689-6) 16.2 12.0-16.0 H [facility] AreaHematocrit2019-08-04 11:45:00 Test Item Value Reference Range Interpretation Comments Hematocrit (test code = 4544-3) 46.1 34.2-44.1 H [facility]"
[2022-07-23] MEDS ORDERED: NA CHLORIDE 0.9% 1,000 ML ONE ×2 (10:29→12:07)
--- NOTE | 2022-07-23 10:54 | RAD REPORT ---
EXAM DESCRIPTION: RAD - Chest Single View - 07/23/2022 10:42 am CLINICAL HISTORY: COUGH COMPARISON: Chest Single View dated 11/20/2021; Chest For Pe Angio dated 11/20/2021 FINDINGS: Lines: None. Lungs: No evidence of edema or pneumonia. Hyperinflated lungs. Pleural: No significant pleural effusions or pneumothorax. Cardiac: The heart size is within normal limits. Mediastinum: Within normal limits. Bones: No acute fractures. Other: Rounded radiopaque foreign body overlying the upper mediastinum is likely external to the elvia ent. IMPRESSION: No acute cardiopulmonary disease. Hyperinflated lungs.
[2022-07-23 10:58] LABS: SARS-CoV-2 Antigen Rapid Res Negative (Negative)
[2022-07-23 11:29] LABS: Absolute Lymphocytes (CBC) 1.7 K/uL (0.7-4.9); Hematocrit 41.3 % (36.0-45.0); Lymphocytes % 33.5 % (15.3-44.8); MCV 91.8 fL (80-100); MPV 8.4 fL (7.6-11.3)
[2022-07-23 11:32] LABS: Protime INR 1.19
[2022-07-23 11:49] LABS: Albumin 3.6 g/dL (3.4-5.0); Bilirubin Direct 0.2 mg/dL (0-0.2); Bilirubin Indirect, Calculated 0.4 mg/dL (0.2-0.8); Bilirubin Total 0.6 mg/dL (0.2-1.0); Magnesium 1.9 mg/dL (1.6-2.4); Potassium 3.9 mEq/L (3.5-5.1); Protein, Total 6.5 g/dL (6.4-8.2); Troponin High Sensitivity 7.9 pg/mL (<58.9)
[2022-07-23 12:07] LABS: Specific Gravity 1.023 (1.005-1.030); Urine Bacteria <20 /HPF (<20); Urine Bilirubin NEGATIVE (Negative); Urine Blood Negative (Negative); Urine Clarity Turbid (Clear); Urine Color Yellow (Yellow); Urine Glucose NEGATIVE (Negative); Urine Mucus Slight /HPF (None Seen); Urine Protein TRACE (Negative); Urine RBC <5 /HPF (None Seen); Urine Urobilinogen 3+ (Normal); Urine pH 6.5 (5.0-7.0)
--- NOTE | 2022-07-23 12:15 | RAD REPORT ---
EXAM DESCRIPTION: CT - Head Brain Wo Cont - 07/23/2022 12:03 pm CLINICAL HISTORY: blurred vision;Headache COMPARISON: No comparisons TECHNIQUE: All CT scans are performed using dose optimization technique as appropriate and may inclu de automated exposure control or mA/KV adjustment according to patient size. FINDINGS: No intracranial hemorrhage, hydrocephalus or extra-axial fluid collection.No areas of brai n edema or evidence of midline shift. Low lying cerebellar tonsils. The paranasal sinuses and mastoids are clear. The calvarium is intact. IMPRESSION: No acute intracranial abnormality.
--- NOTE | 2022-07-23 12:18 | RAD REPORT ---
EXAM DESCRIPTION: CTChest Abdomen Pelvis W Cont - 07/23/2022 12:05 pm CLINICAL HISTORY: sob, abd pain, 70 pound weight loss, abd pain COMPARISON: Head Brain Wo Cont dated 07/23/2022 TECHNIQUE: CT of the chest, abdomen, and pelvis was performed. All CT scans are performed using dose optimization technique as appropriate and may include automated exposure control or mA/KV adjustment according to patient size. FINDINGS: Thorax: Chest Wall: No abnormal mass Lungs: No acute abnormality. Pleura: No effusions or pneumothorax. Judie/Mediastinum: No lymphadenopathy. Aorta/Pulmonary Arteries: Unremarkable Heart: Normal size. Abdomen/Pelvis: Liver: No focal liver masses. Intrahepatic biliary duct dilatation which may be related to the postch olecystectomy state. Biliary: Cholecystectomy. Extrahepatic biliary duct dilatation measuring 7 millimeters. Stomach: No significant focal abnormality. Duodenum: No significant focal abnormality. Pancreas: Prominent pancreatic duct. No pancreatic masses are identified. Spleen: No significant abnormality. Adrenal: No suspicious lesions. Kidney/ureter: No hydronephrosis. No renal calculi. Retroperitoneum: No retroperitoneal adenopathy. Vascular: No aneurysm. Atherosclerosis. Bowel: No significant focal abnormality. Peritoneum: No ascites or free air. Bladder: Grossly unremarkable. Reproductive: No adnexal masses. Hysterectomy Bones: No acute fracture. Other: n/a IMPRESSION: No acute findings within the chest, abdomen, or pelvis. Intra and extrahepatic biliary ductal dilatation may be related to the postcholecystectomy state. Rec ommend correlation with LFTs. MRCP could further evaluate if abnormal and/or biliary pathology suspec joyce.
--- NOTE | 2022-07-23 12:57 | EDPHYS ---
Physician Documentation [facility] Name: Tata Friedman Age: 52 yrs Sex: Female : 1970 Arrival Date: 07/23/2022 Time: 09:38 Bed 11 Private MD: ED Physician Catracho Poewll HPI: 07/23 10:50 This 52 yrs old Female presents to ER via Ambulatory with complaints of headache, rn dehydration, muscle aches. 10:50 Pt reports not feeling well, states began yesterday, + headache/sob/muscle rn aches/fatigue/feels dehydrated/abd pain/dysuria. . Onset: The symptoms/episode began/occurred yesterday. Severity of symptoms: At their worst the symptoms were moderate in the emergency department the symptoms are unchanged. The patient has not experienced similar symptoms in the past. The patient has not recently seen a physician. 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 - Social history:: Smoking status: Patient reports the use of cigarette tobacco products, denies chronic smoking, but will smoke occasionally. - Family history:: not pertinent. - Hospitalizations: : No recent hospitalization is reported. ROS: 10:50 Constitutional: + subjective fever and chills, + 60 pound weight loss over last 6 rn months Eyes: Negative for injury, pain, redness, and discharge, Neck: Negative for injury, pain, and swelling, Cardiovascular: Negative for chest pain, palpitations, and edema, Respiratory: Negative for shortness of breath, cough, wheezing, and pleuritic chest pain, Abdomen/GI: Negative for diarrhea, and constipation Back: Negative for injury and pain, : + dysuria MS/Extremity: Negative for injury and deformity, Skin: Negative for injury, rash, and discoloration, Neuro: + headache and generalized weakness Exam: 10:50 Constitutional: Thin female, no acute distress, seems anxious Head/Face: rn Normocephalic, atraumatic. Eyes: Pupils equal round and reactive to light, extra-ocular motions intact. ENT: dry MM Neck: Trachea midline, no masses palpated, and no cervical lymphadenopathy. Supple, full range of motion without nuchal rigidity, or vertebral point tenderness. No Meningismus. Cardiovascular: Regular rate and rhythm. No pulse deficits. Respiratory: No increased work of breathing, no retractions or nasal flaring. Abdomen/GI: soft, + LLQ tenderness Skin: Warm, dry, no cellulitis MS/ Extremity: Pulses equal, no cyanosis. Neurovascular intact. Full, normal range of motion. Equal circumference. Neuro: Awake and alert, GCS 15, oriented to person, place, time, and situation. Cranial nerves II-XII grossly intact. Motor strength 5/5 in all extremities. Sensory grossly intact. 12:59 ECG was reviewed by the Attending Physician. rn Vital Signs: 09:43 BP 116 / 77; Pulse 61; Resp 18; Temp 97.9; Pulse Ox 99% on R/A; Weight 53.52 kg; Height ph 5 ft. 6 in. ; 11:23 BP 108 / 74; Pulse 64; Resp 18; Pulse Ox 99% ; ko1 12:52 BP 134 / 64; Pulse 64; Resp 18; Pulse Ox 99% on R/A; ko1 09:43 Body Mass Index 19.05 (53.52 kg, 167.64 cm) ph MDM: 09:53 Patient medically screened. rn 12:55 Differential Diagnosis flu, COVID, UTI, viral syndrome, cancer, pneumonia. Data rn reviewed: vital signs, nurses notes, lab test result(s), EKG, radiologic studies, CT scan, and as a result, I will discharge patient. Counseling: I had a detailed discussion with the patient and/or guardian regarding: the historical points, exam findings, and any diagnostic results supporting the discharge/admit diagnosis, lab results, radiology results, the need for outpatient follow up, to return to the emergency department if symptoms worsen or persist or if there are any questions or concerns that arise at home. Response to treatment: the patient's symptoms have markedly improved after treatment, and as a result, I will discharge patient. Special discussion: I discussed with the patient/guardian in detail that at this point there is no indication for admission to the hospital. It is understood, however, that if the symptoms persist or worsen the patient needs to return immediately for re-evaluation. 07/23 10:15 Order name: BMP; Complete Time: 12:06 rn 07/23 10:15 Order name: Blood Culture Adult (2) rn 07/23 10:15 Order name: CBC with Diff; Complete Time: 12: rn 07/23 10:15 Order name: Hepatic Function; Complete Time: 12:06 rn 07/23 10:15 Order name: Lipase; Complete Time: 12: rn 07/23 10:15 Order name: Magnesium; Complete Time: 12: rn 07/23 10:15 Order name: NT PRO-BNP; Complete Time: 12: rn 07/23 10:15 Order name: PT-INR; Complete Time: 12: rn 07/23 10:15 Order name: Ptt, Activated; Complete Time: 12: rn 07/23 10:15 Order name: Troponin HS; Complete Time: 12: rn 07/23 10:15 Order name: SARS RAPID; Complete Time: 11:08 rn 07/23 10:15 Order name: Flu; Complete Time: 11: rn 07/23 10:15 Order name: Urinalysis w/ reflexes; Complete Time: 12:44 rn 07/23 12:14 Order name: Urine Culture EDMS 07/23 10:15 Order name: XRAY CXR (1 view); Complete Time: 11:08 rn 07/23 10:18 Order name: CT Head Brain wo Cont; Complete Time: 12:44 rn 07/23 10:18 Order name: CT Chest, Abdomen, Pelvis - W/Contrast; Complete Time: 12:44 rn 07/23 10:15 Order name: EKG; Complete Time: 10: rn 07/23 10:15 Order name: Cardiac monitoring; Complete Time: 10: rn 07/23 10:15 Order name: EKG - Nurse/Tech; Complete Time: 10:20 rn 07/23 10:15 Order name: IV Saline Lock; Complete Time: 10: rn 07/23 10:15 Order name: Labs collected and sent; Complete Time: : rn 07/23 10:15 Order name: O2 Per Protocol; Complete Time: 10:16 rn 07/23 10:15 Order name: O2 Sat Monitoring; Complete Time: 10: rn 07/23 10:47 Order name: Labs - recollect needed: recollect all tubes; Complete Time: 10:52 bd EC:59 Rate is 66 beats/min. Rhythm is regular. QRS Blum is Normal. VA interval is normal. QRS rn interval is normal. QT interval is normal. No Q waves. T waves are Normal. No ST changes noted. Clinical impression: NSR w/ Non-specific ST/T Changes. Interpreted by me. Reviewed by me. Administered Medications: 10:36 Drug: NS 0.9% IV 1000 ml Route: IV; Rate: 1000 ml; Site: right forearm; ko1 11:38 Follow up: IV Status: Completed infusion; IV Intake: 1000ml ko1 12:02 Drug: NS 0.9% IV 1000 ml Route: IV; Rate: 1000 ml; Site: right forearm; ko1 13:02 Follow up: IV Status: Completed infusion; IV Intake: 1000ml ko1 13:03 Drug: traMADol PO 50 mg Route: PO; ko1 Disposition Summary: 07/23/22 12:56 Discharge Ordered Location: Home rn Problem: new rn Symptoms: have improved rn Condition: Stable rn Diagnosis - UTI/ Urinary tract infection, site not specified rn - Dehydration rn - Other malaise and fatigue rn Followup: rn - With: Private Physician - When: As needed - Reason: Recheck today's complaints, Re-evaluation by your physician Discharge Instructions: - Discharge Summary Sheet rn - Dehydration, Adult rn - Urinary Tract Infection, Adult rn Forms: - Medication Reconciliation Form rn - Thank You Letter rn - 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
--- NOTE | 2022-07-23 12:57 | ER ---
Nurse's Notes [facility] Name: Tata Friedman Age: 52 yrs Sex: Female : 1970 Arrival Date: 07/23/2022 Time: 09:38 Bed 11 Private MD: Diagnosis: UTI/ Urinary tract infection, site not specified;Dehydration;Other malaise and fatigue Presentation: 07/23 09:43 Chief complaint: Patient states: SOB, dizziness, feels dehydrated, lymph nodes feel ph swollen in groin, denies fever N/V, symptoms started yesterday. Coronavirus screen: Vaccine status: Patient reports receiving the 2nd dose of the covid vaccine. Ebola Screen: No symptoms or risks identified at this time. Initial Sepsis Screen: Does the patient meet any 2 criteria? No. Patient's initial sepsis screen is negative. Does the patient have a suspected source of infection? No. Patient's initial sepsis screen is negative. Risk Assessment: Do you want to hurt yourself or someone else? Patient reports no desire to harm self or others. Onset of symptoms was July 23, 2022. 09:43 Method Of Arrival: Ambulatory ph 09:43 Acuity: CAROLINE 3 ph Triage Assessment: 09:46 General: Appears in no apparent distress. uncomfortable, Behavior is calm, cooperative. ph Pain: Denies pain. Neuro: Level of Consciousness is awake, alert, obeys commands, Oriented to person, place, time, situation, Reports dizziness. Respiratory: Reports shortness of breath the patient has mild shortness of breath. 13:12 Respiratory: Onset: The symptoms/episode began/occurred at an unknown time. 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 - Social history:: Smoking status: Patient reports the use of cigarette tobacco products, denies chronic smoking, but will smoke occasionally. - Family history:: not pertinent. - Hospitalizations: : No recent hospitalization is reported. Screenin:13 [facility] ED Fall Risk Assessment (Adult) History of falling in the last 3 months, ko1 including since admission No falls in past 3 months (0 pts) Confusion or Disorientation No (0 pts) Intoxicated or Sedated No (0 pts) Impaired Gait No (0 pts) Mobility Assist Device Used No (0 pt) Altered Elimination No (0 pt) Score/Fall Risk Level 0 - 2 = Low Risk Oriented to surroundings, Maintained a safe environment, Educated pt \\T\\ family on fall prevention, incl call for assistance when getting out of bed, Assessed \\T\\ reinforced patient's understanding of fall precautions, Provided non-skid footwear, Hourly rounding (assess needs \\T\\ fall precautionary measures) done, Used ambulatory aids as needed (educated on \\T\\ assisted with), Used gait belt as appropriate. Abuse screen: Denies threats or abuse. Denies injuries from another. Nutritional screening: No deficits noted. Tuberculosis screening: No symptoms or risk factors identified. Assessment: 10:13 Neuro: No deficits noted. Cardiovascular: Rhythm is sinus rhythm. Respiratory: Reports ko1 shortness of breath at rest Airway is patent Respiratory effort is even, unlabored, Breath sounds are clear bilaterally. GI: No deficits noted. : No deficits noted. EENT: No deficits noted. Derm: No deficits noted. Musculoskeletal: No deficits noted. Vital Signs: 09:43 BP 116 / 77; Pulse 61; Resp 18; Temp 97.9; Pulse Ox 99% on R/A; Weight 53.52 kg; Height ph 5 ft. 6 in. ; 11:23 BP 108 / 74; Pulse 64; Resp 18; Pulse Ox 99% ; ko1 12:52 BP 134 / 64; Pulse 64; Resp 18; Pulse Ox 99% on R/A; ko1 09:43 Body Mass Index 19.05 (53.52 kg, 167.64 cm) ph Vitals: 10:13 Cardiac Rhythm Assessment Regular Sinus rhythm. ko1 ED Course: 09:40 Patient arrived in ED. rg4 09:45 Triage completed. ph 09:46 Arm band placed on. ph 09:46 Patient placed in waiting room, Patient notified of wait time. ph 09:53 Catracho Powell MD is Attending Physician. rn 10:08 Kimberli Perkins RN is Primary Nurse. ko1 10:13 Patient has correct armband on for positive identification. Bed in low position. Call ko1 light in reach. Side rails up X 1. Client placed on continuous cardiac and pulse oximetry monitoring. NIBP monitoring applied. ekg monitor tech on. Door closed. Noise minimized. Lights dimmed. Warm blanket given. 10:30 Inserted saline lock: 20 gauge in right forearm, using aseptic technique. Blood ko1 collected. 10:36 Flu Sent. ko1 10:36 SARS RAPID Sent. ko1 10:36 BMP Sent. ko1 10:36 Blood Culture Adult (2) Sent. ko1 10:36 CBC with Diff Sent. ko1 10:36 Hepatic Function Sent. ko1 10:36 Lipase Sent. ko1 10:36 Magnesium Sent. ko1 10:36 NT PRO-BNP Sent. ko1 10:36 PT-INR Sent. ko1 10:36 Ptt, Activated Sent. ko1 10:36 Troponin HS Sent. ko1 10:44 XRAY CXR (1 view) In Process Unspecified. EDMS 11:15 Second set of blood cultures drawn by me. ko1 12:01 Note: iv was infiltrating, started a new 22g to rt forearm. sj 12:04 CT Head Brain wo Cont In Process Unspecified. EDMS 12:07 CT Chest, Abdomen, Pelvis - W/Contrast In Process Unspecified. EDMS 12:52 No provider procedures requiring assistance completed. ko1 13:11 IV discontinued, intact, bleeding controlled, No redness/swelling at site. Pressure ko1 dressing applied. Administered Medications: 10:36 Drug: NS 0.9% IV 1000 ml Route: IV; Rate: 1000 ml; Site: right forearm; ko1 11:38 Follow up: IV Status: Completed infusion; IV Intake: 1000ml ko1 12:02 Drug: NS 0.9% IV 1000 ml Route: IV; Rate: 1000 ml; Site: right forearm; ko1 13:02 Follow up: IV Status: Completed infusion; IV Intake: 1000ml ko1 13:03 Drug: traMADol PO 50 mg Route: PO; ko1 Medication: 10:13 VIS not applicable for this client. ko1 Intake: 11:38 IV: 1000ml; Total: 1000ml. ko1 13:02 IV: 1000ml; Total: 2000ml. ko1 Outcome: 12:56 Discharge ordered by . rn 13:11 Discharged to home ambulatory. ko1 13:11 Condition: stable 13:11 Discharge instructions given to patient, Instructed on discharge instructions, follow up and referral plans. medication usage, Demonstrated understanding of instructions, follow-up care, medications, Prescriptions given X 2. 13:12 Patient left the ED. ko1 Signatures: Dispatcher [employer] uSmmer Catalan Roman, MD MD rn Hall, Patricia, RN RN ph Garcia, Marla 4 Kimberli Perkins RN RN ko1
[2022-07-23] MEDS ORDERED: TRAMADOL HCL 50 MG TAB ONE (13:10)
[2022-07-23 13:44] VITALS: TEMP 97.9; O2SAT 99
[2022-07-23 13:47] VITALS: BP 134/64
--- NOTE | 2022-07-25 13:58 | EKG ---
Test Date: 2022-07-23 Test Time: 10:27:35 Automotive Mechanic: MERCEDES MEASUREMENT RESULTS: Intervals: Rate: 66 GA: 154 QRSD: 94 QT: 414 QTc: 434 [place]: P: 74 GA: 154 QRS: 66 T: 77 INTERPRETIVE STATEMENTS: Normal sinus rhythm Anterior infarct, age undetermined Abnormal ECG Compared to ECG 11/20/2021 12:12:21 Sinus bradycardia no longer present Myocardial infarct finding still present Electronically Signed On 07-25-22 13:55:55 CDT by Christopher Hawk
== END 2022-07-23 13:12 | disposition home or self-care (01) ==
LOC: ER 09:38
DX: N39.0 Urinary tract infection, site not specified (principal); E86.0 Dehydration; R53.81 Other malaise; R53.83 Other fatigue; F17.210 Nicotine dependence, cigarettes, uncomplicated; Z20.822 Contact with and (suspected) exposure to COVID-19
CPT/HCPCS: 96361; 87040 ×2; 87088; 85025; 81001; 87086; 80048; 36415; 83735; 85610; 80076; 85730; 84484; 83690; 83880; 87804 ×2; 70450; 71260; 74177; 71045; 96360; 99285; 87811; Q9967; J7030 ×2; 87077; 87186; 93005

== ENCOUNTER 2022-10-23 08:48 | Emergency (ER) | payer OTHER ==
--- OUTSIDE RECORDS SUMMARY | 2022-10-23 08:51 | XMS REPORT | Continuity of Care Document ---
:1970 Author Organization [facility] t Address [address] [facility] [address] [place] [address] Care Team Providers Name Role Phone NO, [...] rs active active ity of problems problems [facility] [place] [facility] Allergies, Adverse Reactions, Alerts Allergy Allergy Status Severity Reaction(s) Onset Inactive Treating Comm ents Source Name Type Date Date Clinician Ibuprofe Propensi Active Rash Univer s n ty to 03-03 ity of adverse 00:00: [place] reaction 00 [facility] IBUPROFE DRUG Active Rash Univers N INGREDI 03-03 ity of 00:00: [place] 00 [facility] NO KNOWN Drug Active Univers ALLERGIE Class ity of S [facility] [place] [facility] Social History Social Habit Start Date Stop Date Quantity Comments Source Sex Assigned At Universit y of [facility] [place] [facility] Exposure to Not sure [facility] SARS-CoV-2 (event) [facility] [place] [facility] Cigarettes smoked 2020-03-03 2020-03-03 Univers ity of current (pack per 00:00:00 00:00:00 ) - Reported [place] Cigarette 2020-03-03 2020-03-03 University of pack-years 00:00:00 00:00:00 [facility] [place] [facility] Tobacco use and 2020-03-03 2020-03-03 Former user Universi ty of exposure 00:00:00 00:00:00 [facility] [place] [facility] Alcohol intake 2020-03-03 2020-03-03 Ex-drinker [facility] 00:00:00 00:00:00 (finding) [facility] [place] [facility] Smoking Status Start Date Stop Date Source Current every day smoker 2020-03-03 00:00:00 Uni versity of [facility] [place] [facility] Medications Ordered Filled Start Stop Current Ordering Indication Dosage Frequency Signature Comments Components Source Medication Medication Date Date Medication? Clinician (SIG) Name Name benzonatate Yes [id number] 100mg Take 1 Univers 100 mg 1-22 capsule by ity of capsule 00:00: mouth 3 [place] 00 (three) Medical times Branch daily as needed for Cough. albuterol Yes [id number] 2{puff} Inhale 2 Univers 90 1-22 Puffs [...] by ity of tablet 16:34: mouth 2 [place] [address] (two) Medical times Branch daily. QUEtiapine 2020-0 Yes 50mg Take 50 mg U nivers 50 mg 8-01 by mouth ity of tablet 16:34: daily. [place] [address] Medical Branch mirtazapine 2020-0 Yes 15mg Take 15 mg Univers 15 mg 8-01 by mouth ity of tablet 16:34: at [place] [address] bedtime. Medical Branch lithium 2020-0 Yes 900mg [...] by ity of tablet 16:34: mouth 2 [place] [address] (two) Medical times Branch daily. haloperidol 2020-0 [...] by ity of tablet 16:34: mouth 2 [place] 41 (two) Medical times Branch daily. QUEtiapine 2020-0 Yes 50mg Take 50 mg U nivers 50 mg 8-01 by mouth ity of tablet 16:34: daily. [place] [address] Medical Branch mirtazapine 2020-0 Yes 15mg Take [...] 41 daily. Medical Branch famotidine 2020-0 Yes [id number] 20mg Take 1 Univers 20 mg 8-01 tablet by ity of tablet 00:00: mouth 2 [place] 00 (two) Medical times Branch daily. proMETHazin 2019-0 Yes [id number] 25mg Take 1 Univers e 25 mg 8-01 tablet by ity of tablet 00:00: mouth [place] 00 every 6 Medical (six) Branch hours as needed for Nausea and Vomiting (N/V). famotidine 2020-0 Yes [id number] 20mg Take 1 Univers 20 mg 8-01 tablet by ity of tablet 00:00: mouth 2 [place] 00 (two) Medical times Branch daily. proMETHazin 2020-0 Yes [id number] 25mg Take 1 Univers e 25 mg 8-01 tablet by ity of tablet 00:00: mouth [place] 00 every 6 Medical (six) Branch hours as needed for Nausea and Vomiting (N/V). Cefdinir Cefdinir 2018-0 Yes Grant L [address] [facility] (Omnicef) (Omnicef) 8-04 Mohan Technical Support Agent [facility] 300 Mg 300 Mg 00:00: Patient Capsule Capsule 00 [facility] Ondansetron Ondansetron 2018-0 Yes Grant L [address] [facility] Hcl Hcl 8-04 Mohan Technical Support Agent Hours as [facility] (Zofran*) 4 (Zofran*) 4 00:00: needed for Patient Mg Tablet Mg Tablet 00 Nausea [facility] Benztropine Benztropine Yes [address] [facility] Mesylate 2 Mesylate 2 Day Mery es Mg Tablet Mg Tablet Patie nt [facility] [place] Buprenorphi Buprenorphi Yes [address] [facility] Hcl/Naloxon Hcl/Naloxon P atient e Hcl e Hcl Medical (Suboxone 8 (Suboxone 8 C enter Mg-2 Mg Sl Mg-2 Mg Sl Film) 1 Film) 1 Each Film Each Film Clonidine Clonidine Yes [address] [facility] Hcl 0.1 Mg Hcl 0.1 Mg Day Mery es Tablet Tablet Patient [facility] Verlot Verlot Yes [address] [facility] Carbonate [...] Source Systolic blood 2020-03-03 18:05:00 130 mm[facility]Hg[facility] Diastolic blood 2020-03-03 18:05:00 89 mm[Hg] [facility] Heart rate 2020-03-03 18:05:00 99 /min [facility] Respiratory rate 2020-03-03 18:05:00 17 /min [facility] Oxygen saturation in 2020-03-03 18:05:00 99 /min [facility] Arterial blood by [facility] Pulse oximetry Branch Body temperature 2020-03-03 15:55:00 37.06 Leida [facility] Body weight 2020-03-03 15:53:00 54.432 kg [facility] Systolic blood 2019-09-11 17:07:31 137 mm[Hg] [facility] [place] Diastolic blood 2019-09-11 17:07:31 91 mm[Hg] Unive [facility] Heart rate 2019-09-11 17:07:31 98 /min [facility] Body temperature 2019-09-11 17:07:31 37.17 Leida [facility] Respiratory rate 2019-09-11 17:07:31 22 /min [facility] Oxygen saturation in 2019-09-11 17:07:31 98 /min [facility] blood by [facility] Pulse oximetry Branch Body weight 2019-09-11 16:34:00 50 kg [facility] Procedures Procedure Date / Time Performed Performing Clinician Sourromain e XR CHEST 2 VW 2020-03-03 16:39:10 Bushra Hall [facility] POCT TEST 2020-03-03 16:16:00 Bushra Hall [facility] COVID-19 (ID NOW RAPID 2020-03-03 16:16:00 [facility] Medical [place] CBC WITH DIFF 2019-09-11 17:23:00 Yasmin Betts [facility] TROPONIN I 2019-09-11 17:01:00 Yasmin Betts [facility] XR ABDOMEN ACUTE 2019-09-11 16:59:22 Yasmin Betts [facility] EKG-12 LEAD 2019-09-11 16:49:04 Yasmin Betts [facility] LIPASE 2019-09-11 16:42:00 Yasmin Betts [facility] TEST, SERUM 2019-09-11 16:42:00 Yasmin Betts [facility] HEPATIC FUNCTION PANEL 2019-09-11 16:42:00 Yasmin Betts [facility] ([id number]) Medical [place] (ALB,T.PRO,BILI T,BU/BC,ALT,AST,ALK PHOS) BASIC METABOLIC PANEL 2019-09-11 16:42:00 Yasmin Betts [facility] (NA, K, CL, CO2, Medical Branch GLUCOSE, BUN, CREATININE, CA) LITHIUM 2019-09-11 16:42:00 Yasmin Betts [facility] Computed tomography of 2018-09-13 00:00:00 GRANT MOHAN [facility] Patient abdomen and pelvis Medical Cente r with contrast Encounters Start End Encounter Admission Attending Care Care Encounter Source Date/Time Date/Time Type Type Clinicians Facility Department ID 2020-03-03 2020-03-03 Emergency Ibikunle, TRAUMA [id number] Univers 09:55:00 12:07:00 Folusho F CENTER [id number] [place] [id number] [address] Branch 2020-03-03 2020-03-03 Emergency X IBJUNIOR, [facility] ERT [id number] Univers 09:55:00 09:55:00 FOLUSHO ity of [facility] [place] [facility] 2019-09-11 2019-09-11 Emergency Yasmin Betts TRAUMA [id number] Univers 11:27:00 14:04:00 W CENTER [id number] [id number] [address] 2019-09-11 2019-09-11 Emergency X SHONNA BETTSIAN [facility] ERT [id number] Univers 11:27:00 11:27:00 ity of [facility] [place] [facility] 2018-09-13 2018-09-13 Departed 1 [facility] [id number] 11:09:00 18:00:[address] Results Test Description Test Time Test Comments Results Result Comments Source COVID-19 (ID NOW RAPID TESTING) 2020-03-03 17:05:00 Test Item Value Reference Range Interpretation Comme nts SARS-CoV-2 Rapid ID NOW (test code Not Detected Not Detected = 52475-0) SHALOM (test code = SHALOM) ID NOW COVID-19 Assay is an isothermal nucleic acid amplification test intended for the qualitative detection of nucleic acid from SARS-CoV-2 viral RNA in nasopharyngeal (CORONER TECHNICIAN) specimens. It is used under Emergency Use [...] indicated. Lab Interpretation (test code = Normal 05220-6) [facility] [id number] 16:16:00 Test Item Value Reference Range Interpretation Comments POCT PREG (test code = 1605) negative On board controls acceptable with present C Line (test code = 3574) POCT PREG LOT # (test code = 3575) [id number] POCT PREG TEST DATE (test 10/10/2021 code = 3576) Lab Interpretation (test code = Normal 83934-7) [facility] Abdomen [id number] 18:23:32 No acute cardiopulmonary process. Nonobstructive bowel [...] betancur spiciouscalcification identified.IMPRESSIONNo acute cardiopulmonary process.Nonobstructive bowel gaspattern.[facility] Troponin [id number] 17:47:00 Test Item Value Reference Range Interpretation Comments TROPONIN I (test 0.013 ng/mL See_Comment [Automated code = 5517886180) message] The system which generated this result [...] ? Lab Interpretation Normal (test code = 48971-9) [facility] with Tfgxgdgljozu3517-39-53 17:39:00 Test Item Value Reference Range Interpretation Comments WBC (test code = See_Comment [Automated 4390-2) message] The sy stem which generated this result transmitted reference range : 4.30 - 11.10 10*3/?L. The reference range was not used to interpret this result as normal/abnormal . RBC (test code = See_Comment [Automated 279-8) message] The sy stem which generated this [...] RDW-SD (test code = 43.0 fL 39-49.9 42784-0) RDW-CV (test code = 12.9 % 12-15.5 788-0) PLT (test code = See_Comment [Automated 777-3) message] The sy stem which generated this result transmitted reference range : 166 - 358 10*3/ ?L. The reference r jenn was not used to interpret this result as normal/abnormal . MPV (test code = 11.7 fL 9.5-12.9 39803-0) NRBC/100 WBC (test See_Comment [Automat ed code = 9016908563) message] The system which generated this result transmitted reference range : 0.0 - 10.0 /100 WBCs. The refer ence range was not u sed to interpret th is result as normal/abnormal . NRBC x10^3 (test code <0.01 See_Comment [Auto mated = 1279874249) message] The s ystem which generated this result transmitted reference range : 10*3/?L. The reference range was not used to interpret this result as normal/abnormal . GRAN MAT (NEUT) % 73.1 % (test code = 770-8) IMM GRAN % (test code 0.20 % = 6407190602) LYMPH % (test code = 17.1 % 736-9) MONO % (test code = 8.2 % 5905-5) EOS % (test code = 0.6 % 713-8) BASO % (test code = 0.8 % 706-2) GRAN MAT x10^3(ANC) 6.47 10*3/uL 1.88-7.09 (test code = 9758488396) IMM GRAN x10^3 (test <0.03 0-0.06 code = 1266146494) LYMPH x10^3 (test code 1.51 10*3/uL 1.32-3.29 = 731-0) MONO x10^3 (test code 0.73 10*3/uL 0.33-0.92 = 742-7) EOS x10^3 (test code = 0.05 10*3/uL 0.03-0.39 711-2) BASO x10^3 (test code 0.07 10*3/uL 0.01-0.07 = 704-7) Lab Interpretation Abnormal (test code = 73231-4) [facility]2020-[facility]-01 17:34:00 Test Item Value Reference Range Interpretation Comments Verlot (test code = <0.2 0.6-1.2 L 6579171319) SHALOM (test code = SHAOLM) Toxic Range: ? Greater than 1.2 mmol/L Lab Interpretation (test Abnormal code = 11893-8) [facility] Met[facility] Panel (NA, K, CL, CO2, GLUCOSE, BUN, CREATININE, CA)2019-09-11 17:20:00 Test Item Value Reference Range Interpretation Comments NA (test code = 137 mmol/L 135-145 9844485520) K (test code = 4.2 mmol/L 3.5-5 4341628611) CL (test code = 105 mmol/L 98-108 1426296863) CO2 TOTAL (test code = 26 mmol/L 23-31 1690056660) AGAP (test code = 2-16 2821858569) BUN (test code = 15 mg/dL 7-23 8524044503) GLUCOSE (test code = 127 mg/dL 70-110 H 3327060751) CREATININE (test code = 0.55 mg/dL 0.5-1.04 3446672180) CALCIUM (test code = 10.4 mg/dL 8.6-10.6 3630901777) eGFR Calculation mL/min/1.73m2 (Non-) (test code = 9088277812) eGFR Calculation mL/min/1.73m2 () (test code = 5208605584) SHALOM (test code = SHALOM) Association of [...] tests). Lab Interpretation Abnormal (test code = 42914-5) [facility] CenterLip[facility] [id number] 17:20:00 Test Item Value Reference Range Interpretation Comments LIPASE (test code = 0302256038) 106 U/L 0-220 Lab Interpretation (test code = Normal 72842-7) [facility] Center[facility] Function Panel (ALB, T.PRO, BILI T, BU/BC, ALT, AST, ALK PHOS)2019-09-11 17:20:00 Test Item Value Reference Range Interpretation Comments TOTAL BILI (test code = 0252284273) 0.6 mg/dL 0.1-1.1 BILI UNCON (test code = 9040693717) 0.7 mg/dL 0.1-1.1 BILI CONJ (test code = 7257540986) 0.0 mg/dL 0-0.3 T PROTEIN (test code = 0666456132) 7.9 g/dL 6.3-8.2 ALBUMIN (test code = 5588806305) 4.9 g/dL 3.5-5 ALK PHOS (test code = 6161568222) 106 U/L 34-122 ALTv (test code = 1742-6) 70 U/L 5-35 H AST(SGOT) (test code = 3285924223) 85 U/L 13-40 H Lab Interpretation (test code = Abnormal 00978-5) [facility] CenterPregnancy Test, Sgffv6840-13-47 17:15:00 Test Item Value Reference Range Interpretation Comments PREG SERUM (test code Negative = 1928227420) SHALOM (test code = SHALOM) Less than 10 IU/L. ?If low titer or ectopic is suspected, resubmit specimen in 48-72 hours. [facility] SINGLE (PORTABLE)2018-09-13 16:05:00 [place] [address] Patient Name: CECI GRAHAM MR #: [id number] : 1970 Age/Sex: 48/F Req #:[id number] Adm Physician: Ordered by: GRANT MOHAN CORONER TECHNICIAN Report #: [id number] Location: ER Room/Bed: Procedure: [id number] DX/CHEST SINGLE (PORTABLE) Exam Date: 09/13/18 Exam [...] 06 COPY TO: GRANT MOHAN NPCT ABDOMEN/PELVIS [id number] 14:45:00 [place] [address] Patient Name: CECI GRAHAM MR #: [id number] : 1970 Age/Sex: 48/F Req #: [id number] Adm Physician: Ordered by: GRANT MOHAN CORONER TECHNICIAN Report #: [id number] Location: ER Room/Bed: Procedure: [id number] CT/CT ABDOMEN/PELVIS W Exam Date: 09/13/18 Exam Time: 1414 REPORT STATUS: Signed ADDENDUM #1 Subcentimeter air cyst in the right lower lobe. Signed by: Dr. Celestina Polanco MD on 09/13/2018 4:[address] Abdomen And Pelvis with Intravenous Contrast INDICATION: Nausea, vomiting upper abdominal pain, n/v/d, rule out colitis [id number] 1415 TECHNIQUE: Thin collimation axial images obtained [...] 2:49 PM Dictated By: CELESTINA POLANCO MD 1603 Transcribed By: BENI on 09/13/18 9754 COPY TO: GRANT MOHAN [id number] 12:25:00 Test Item Value Reference Range Interpretation Comments Lipase (test code = 3040-3) 18 8-78 [facility] Planoodium Sphaf2457-73-76 12:25:00 Test Item Value Reference Range Interpretation Comments Sodium Level (test code = 2951-2) 139 136-145 [facility] [id number] 12:25:00 Test Item Value Reference Range Interpretation Comments Potassium Level (test code = 2823-3) 3.3 3.5-5.1 L [facility] HospitalChloride Bxima7018-27-77 12:25:00 Test Item Value Reference Range Interpretation Comments Chloride Level (test code = 2075-0) 103 98-107 [facility] HospitalCarbon Dioxide [id number] 12:25:00 Test Item Value Reference Range Interpretation Comments Carbon Dioxide Level (test code = -8-9) [facility] HospitalAnion [id number] 12:25:00 Test Item Value Reference Range Interpretation Comments Anion Gap (test code = 48429-6) 17.3 8-16 H [facility] HospitalBlood Urea [id number] 12:25:00 Test Item Value Reference Range Interpretation Comments Blood Urea Nitrogen (test code = 09-04 3094-0) [facility] HospitalCreatinine2019-08-04 12:25:00 Test Item Value Reference Range Interpretation Comments Creatinine (test code = 2160-0) 0.78 0.57-1.11 [facility] HospitalBUN/Creatinine [id number] 12:25:00 Test Item Value Reference Range Interpretation Comments BUN/Creatinine Ratio (test code = 08-04 3097-3) [facility] HospitalEstimat Glomerular Filtration [id number] 12:25:00 Test Item Value Reference Range Interpretation Comments Estimat Glomerular Filtration Rate > 60 >60 (test code = 093195270) Ranges were taken from the National Kidney Disease Education Program and the National Kidney Foundation literature.Reference ranges:60 or greater: Ulqxpg79- 59 (for 3 consecutive months): Chronic kidneydisease 15 or less: Kidney failure [facility] HospitalGlucose Knube7620-95-99 12:25:00 Test Item Value Reference Range Interpretation Comments Glucose Level (test code = JAB2316) 143 74-118 H [facility] HospitalCalcium Vvjja6585-50-65 12:25:00 Test Item Value Reference Range Interpretation Comments Calcium Level (test code = 32203-8) 10.1 8.4-10.2 [facility] HospitalMagnesium Lsyzr0442-25-69 12:25:00 Test Item Value Reference Range Interpretation Comments Magnesium Level (test code = 63390-3) 2.3 1.3-2.1 H [facility] HospitalTotal [id number] 12:25:00 Test Item Value Reference Range Interpretation Comments Total Bilirubin (test code = 1975-2) 0.7 0.2-1.2 [facility] HospitalAspartate Amino Transf (AST/SGOT)2018-09-13 12:25:00 Test Item Value Reference Range Interpretation Comments Aspartate Amino Transf (AST/SGOT) (test 24 5-34 code = Aspartate Amino Transf (AST/SGOT)) [facility] HospitalAlanine Aminotransferase (ALT/SGPT)2018-09-13 12:25:00 Test Item Value Reference Range Interpretation Comments Alanine Aminotransferase (ALT/SGPT) 24 0-55 (test code = 1742-6) [facility] HospitalTotal Gjybhrd1967-79-80 12:25:00 Test Item Value Reference Range Interpretation Comments Total Protein (test code = 2885-2) 7.2 6.5-8.1 [facility] HospitalAlbumin2019-08-04 12:25:00 Test Item Value Reference Range Interpretation Comments Albumin (test code = 1751-7) 4.2 3.5-5.0 [facility] HospitalGlobulin2019-08-04 12:25:00 Test Item Value Reference Range Interpretation Comments Globulin (test code = 82217-2) 3.0 2.3-3.5 [facility] HospitalAlbumin/Globulin [id number] 12:25:00 Test Item Value Reference Range Interpretation Comments Albumin/Globulin Ratio (test code = 1.4 0.8-2.0 1759-0) [facility] HospitalAlkaline Jfchauaufmq4488-42-72 12:25:00 Test Item Value Reference Range Interpretation Comments Alkaline Phosphatase (test code = 81 40-150 6768-6) [facility] HospitalAmylase [id number] 12:25:00 Test Item Value Reference Range Interpretation Comments Amylase Level (test code = 1798-8) 84 25-125 [facility] HospitalUrine Iqqvt1865-70-27 11:53:00 Test Item Value Reference Range Interpretation Comments Urine Color (test code = 5778-6) YELLOW YELLOW [facility] HospitalUrine [id number] 11:53:00 Test Item Value Reference Range Interpretation Comments Urine Clarity (test code = 23616-1) SL CLOUDY CLEAR [facility] HospitalUrine Specific [id number] 11:53:00 Test Item Value Reference Range Interpretation Comments Urine Specific [place] (test code = 1.015 1.010-1.025 5811-5) [facility] HospitalUrine [id number] 11:53:00 Test Item Value Reference Range Interpretation Comments Urine pH (test code = 35416-5) 7 5-7 [facility] Leukocyte [id number] 11:53:00 Test Item Value Reference Range Interpretation Comments Urine Leukocyte Esterase (test code NEGATIVE NEGATIVE = 5799-2) [facility] Hospital[facility] [id number] 11:53:00 Test Item Value Reference Range Interpretation Comments Urine Nitrite (test code = 79924-2) NEGATIVE NEGATIVE [facility] HospitalU[facility] [id number] 11:53:00 Test Item Value Reference Range Interpretation Comments Urine Protein (test code = 5804-0) 2+ NEGATIVE H [facility] HospitalU[facility] Glucose (UA)2018-09-13 11:53:00 Test Item Value Reference Range Interpretation Comments Urine Glucose (UA) (test code = NEGATIVE NEGATIVE 2349-9) [facility] HospitalU[facility] [id number] 11:53:00 Test Item Value Reference Range Interpretation Comments Urine Ketones (test code = 19632-1) NEGATIVE NEGATIVE [facility] HospitalU[facility] [id number] 11:53:00 Test Item Value Reference Range Interpretation Comments Urine Urobilinogen (test code = 0.2 0.2-1 36528-2) [facility] Hospital[facility] Stufzdigp4656-18-02 11:53:00 Test Item Value Reference Range Interpretation Comments Urine Bilirubin (test code = 1978-6) NEGATIVE NEGATIVE [facility] Hospital[facility] [id number] 11:53:00 Test Item Value Reference Range Interpretation Comments Urine Blood (test code = 60958-3) TRACE NEGATIVE H [facility] Hospital[facility] [id number] 11:53:00 Test Item Value Reference Range Interpretation Comments Urine WBC (test code = 5821-4) 11-20 0-5 H [facility] Hospital[facility] [id number] 11:53:00 Test Item Value Reference Range Interpretation Comments Urine RBC (test code = 39635-7) 11-20 0-5 H [facility] HospitalU[facility] [id number] 11:53:00 Test Item Value Reference Range Interpretation Comments Urine Bacteria (test code = 14985-5) FEW NONE [facility] Epithelial [id number] 11:53:00 Test Item Value Reference Range Interpretation Comments Urine Epithelial Cells (test code = FEW NONE 17625-3) [facility] HospitalU[facility] [id number] 11:53:00 Test Item Value Reference Range Interpretation Comments Urine Test (test code = NEGATIVE NEGATIVE 6-3) [facility] HospitalMean Corpuscular Tbnkav1745-68-35 11:45:00 Test Item Value Reference Range Interpretation Comments Mean Corpuscular Volume (test code = 87.0 81-99 787-2) [facility] HospitalMean Corpuscular Ojznzsucur8924-03-72 11:45:00 Test Item Value Reference Range Interpretation Comments Mean Corpuscular Hemoglobin (test code 30.6 28-32 = 785-6) [facility] HospitalMean Corpuscular Hemoglobin Qiyrcmb0479-20-67 11:45:00 Test Item Value Reference Range Interpretation Comments Mean Corpuscular Hemoglobin Concent 35.1 31-35 H (test code = 786-4) [facility] HospitalRed Cell Distribution Steif7455-12-98 11:45:00 Test Item Value Reference Range Interpretation Comments Red Cell Distribution Width (test code 13.5 11.7-14.4 = 82179-8) [facility] HospitalPlatelet Froym8942-43-52 11:45:00 Test Item Value Reference Range Interpretation Comments Platelet Count (test code = 777-3) 318 140-360 [facility] HospitalNeutrophils (%) (Auto)2018-09-13 11:45:00 Test Item Value Reference Range Interpretation Comments Neutrophils (%) (Auto) (test code = 81.5 38.7-80.0 H 85398-9) [facility] HospitalLymphocytes (%) (Auto)2018-09-13 11:45:00 Test Item Value Reference Range Interpretation Comments Lymphocytes (%) (Auto) (test code = 9.7 18.0-39.1 L 736-9) [facility] HospitalMonocytes (%) (Auto)2018-09-13 11:45:00 Test Item Value Reference Range Interpretation Comments Monocytes (%) (Auto) (test code = 7.9 4.4-11.3 5905-5) [facility] HospitalEosinophils (%) (Auto)2018-09-13 11:45:00 Test Item Value Reference Range Interpretation Comments Eosinophils (%) (Auto) (test code = 0.0 0.0-6.0 713-8) [facility] HospitalBasophils (%) (Auto)2018-09-13 11:45:00 Test Item Value Reference Range Interpretation Comments Basophils (%) (Auto) (test code = 0.3 0.0-1.0 706-2) [facility] HospitalIM GRANULOCYTES %2018-09-13 11:45:00 Test Item Value Reference Range Interpretation Comments IM GRANULOCYTES % (test code = IM 0.6 0.0-1.0 GRANULOCYTES %) [facility] HospitalNeutrophils # (Auto)2018-09-13 11:45:00 Test Item Value Reference Range Interpretation Comments Neutrophils # (Auto) (test code = 15.3 2.1-6.9 H 751-8) [facility]2018-09-13 11:45:00 Test Item Value Reference Range Interpretation Comments Lymphocytes # (Auto) (test code = 1.8 1.0-3.2 97281-1) [facility] (Auto)2018-09-13 11:45:00 Test Item Value Reference Range Interpretation Comments Monocytes # (Auto) (test code = 742-7) 1.5 0.2-0.8 H [facility]Eosinophils [facility] (Auto)2018-09-13 11:45:00 Test Item Value Reference Range Interpretation Comments Eosinophils # (Auto) (test code = 0.0 0.0-0.4 711-2) [facility]Auto)2018-09-13 11:45:00 Test Item Value Reference Range Interpretation Comments Basophils # (Auto) (test code = 704-7) 0.1 0.0-0.1 [facility]Absolute Immature Granulocyte ([id number] 11:45:00 Test Item Value Reference Range Interpretation Comments Absolute Immature Granulocyte (auto 0.12 0-0.1 H (test code = Absolute Immature Granulocyte (auto) [facility] HospitalWhite Blood [id number] 11:45:00 Test Item Value Reference Range Interpretation Comments White Blood Count (test code = 6690-2) 18.82 4.8-10.8 H [facility] HospitalRed Blood [id number] 11:45:00 Test Item Value Reference Range Interpretation Comments Red Blood Count (test code = 789-8) 5.30 3.6-5.1 H [facility]Hemoglobin2019-08-04 11:45:00 Test Item Value Reference Range Interpretation Comments Hemoglobin (test code = 68352-8) 16.2 12.0-16.0 H [facility] HospitalHematocrit2019-08-04 11:45:00 Test Item Value Reference Range Interpretation Comments Hematocrit (test code = 4544-3) 46.1 34.2-44.1 H [facility]"
--- NOTE | 2022-10-23 09:23 | RAD REPORT ---
EXAM DESCRIPTION: Jared Single View10/23/2022 9:07 am CLINICAL HISTORY: Shortness of breath COMPARISON: July 2022 FINDINGS: Lungs are hyperaerated. The lungs appear clear of acute infiltrate. The heart is normal size IMPRESSION: No acute abnormalities displayed
[2022-10-23 10:16] LABS: Specific Gravity 1.022 (1.005-1.030); Urine Bacteria None Seen /HPF (<20); Urine Bilirubin NEGATIVE (Negative); Urine Blood Negative (Negative); Urine Clarity Clear (Clear); Urine Color Yellow (Yellow); Urine Glucose NEGATIVE (Negative); Urine Mucus Slight /HPF (None Seen); Urine Protein NEGATIVE (Negative); Urine RBC <5 /HPF (None Seen); Urine Urobilinogen Normal (Normal)
--- NOTE | 2022-10-23 10:21 | EDPHYS ---
Physician Documentation [facility] Name: Tata Friedman Age: 52 yrs Sex: Female : 1970 Arrival Date: 10/23/2022 Time: 08:48 Bed 11 Private MD: ED Physician Parth Parr HPI: 10/23 09:04 This 52 yrs old Female presents to ER via Ambulatory with complaints of Fever, General kb Weakness. 09:04 The patient or guardian reports difficulty breathing, flu symptoms, low-grade fever, kb myalgias. Onset: The symptoms/episode began/occurred 2 day(s) ago. Severity of symptoms: At their worst the symptoms were moderate, in the emergency department the symptoms are unchanged. Modifying factors: The symptoms are alleviated by nothing, the symptoms are aggravated by nothing. Associated signs and symptoms: Pertinent positives: rhinorrhea, sore throat. The patient has not experienced similar symptoms in the past. The patient has not recently seen a physician. Pt reports fever, headache, dyspnea, sore throat, congestion and bodyaches for 2 days. . SWEAT BAND SEWER: 09:03 LMP N/A - Post-menopause ap3 Historical: - Allergies: 08:56 No Known Allergies; ap3 - PMHx: 08:56 "Drug addict, clean since 2017" "abused vicodin"; Bipolar disorder; depressive ap3 disorder; PTSD; Schizophrenia; - PSHx: 10:40 Cholecystectomy; hysterectomy; iw - Immunization history:: Client reports receiving the 2nd dose of the Covid vaccine. - Social history:: Smoking status: Patient reports the use of cigarette tobacco products, denies chronic smoking, but will smoke occasionally. ROS: 09:07 Abdomen/GI: Negative for abdominal pain, nausea, vomiting, diarrhea, and constipation. kb 09:07 Constitutional: Positive for body aches, chills, fatigue, fever, malaise. 09:07 ENT: Positive for rhinorrhea, sinus congestion, sore throat. 09:07 Respiratory: Positive for shortness of breath. 09:07 Neuro: Positive for headache. 09:07 All other systems are negative. Exam: 09:07 Constitutional: This is a well developed, well nourished patient who is awake, alert, kb and in no acute distress. Head/Face: Normocephalic, atraumatic. ENT: Moist Mucous membranes Cardiovascular: Regular rate Respiratory: Respirations even and unlabored. No increased work of breathing. Talking in full sentences Abdomen/GI: Soft, non-tender. No distention Skin: Warm, dry with normal turgor. Normal color. MS/ Extremity: Pulses equal, no cyanosis. Neurovascular intact. Full, normal range of motion. Neuro: Awake and alert, GCS 15, oriented to person, place, time, and situation. Moves all extremities. Normal gait. Vital Signs: 08:55 BP 169 / 101; Pulse 72; Resp 18; Temp 98.9; Pulse Ox 98% ; Weight 53.52 kg; Height 5 ap3 ft. 6 in. ; Pain 8/10; 10:20 BP 159 / 98; Pulse 74; Resp 19 S; Pulse Ox 98% on R/A; iw 08:55 Body Mass Index 19.05 (53.52 kg, 167.64 cm) ap3 08:55 Pain Scale: Adult ap3 MDM: 08:51 Patient medically screened. kb 09:04 Differential diagnosis: flu, covid, strep, pneumonia, uri, viral syndrome. Data kb reviewed: vital signs, nurses notes. 10:20 Counseling: I had a detailed discussion with the patient and/or guardian regarding the kb historical points, exam findings, and any diagnostic results supporting the discharge/admit diagnosis, lab results, radiology results, the need for outpatient follow up, a family practitioner, to return to the emergency department if symptoms worsen or persist or if there are any questions or concerns that arise at home. 10:34 ED course: Pt upset that we are not admitting her for covid. States she doesn't feel kb good, her lips are dry and she needs to be admitted. Pt educated on increasing oral fluids and symptomatic treatment. Pt requested prescription for ibuprofen because she cannot afford it and medicaid will pay for it. Zofran and ibuprofen prescribed. Pt educated on return precautions. Pt is tolerating po intake and ambulating with steady gait. . 10/23 08:55 Order name: Flu; Complete Time: 09:59 kb 10/23 08:55 Order name: SARS-COV-2 RT PCR; Complete Time: 09:59 kb 10/23 08:55 Order name: Strep kb 10/23 08:55 Order name: Urinalysis w/ reflexes; Complete Time: 10:16 kb 10/23 09:32 Order name: Throat Culture EDWA 10/23 08:55 Order name: Chest Single View XRAY; Complete Time: :23 kb Administered Medications: 10:21 Drug: Ondansetron Oral Disintegrating Tablet Oral Disintegrating Tablet 4 mg Route: PO; iw 10:21 Drug: Acetaminophen PO 1000 mg Route: PO; iw Disposition: 10:32 Co-signature as Attending Physician, Parth Parr MD I reviewed the patient's care rt provided by the Advanced Practice Provider and agree with the diagnosis and treatment plan. Disposition Summary: 10/23/22 10:21 Discharge Ordered Location: Home kb Condition: Stable kb Diagnosis - SARS-associated coronavirus as the cause of diseases classified elsewhere kb Followup: kb - With: Emergency Department - When: As needed - Reason: Worsening of condition Followup: kb - With: Private Physician - When: 2 - 3 days - Reason: Recheck today's complaints, Continuance of care, Re-evaluation by your physician Discharge Instructions: - Discharge Summary Sheet kb - COVID-19 kb - Viral Illness, Adult kb Forms: - Medication Reconciliation Form kb - Thank You Letter kb - Antibiotic Education kb - Prescription Opioid Use kb - Patient Portal Instructions kb - Leadership Thank You Letter kb Prescriptions: - ibuprofen 400 mg Oral tablet - take 1 tablet by ORAL route every 4 hours As needed; 30 tablet; Refills: 0, kb Product Selection Permitted - Zofran 4 mg Oral Tablet - take 1 tablet by ORAL route every 6 hours As needed; 12 tablet; Refills: 0, kb Product Selection Permitted Signatures: Dispatcher [employer] [facility] Senait Mondragon, ROM MELGARP-Beata Newton, RN Alexa Eddy RN RN ap3 Parth Parr MD MD rt
--- NOTE | 2022-10-23 10:21 | ER ---
Nurse's Notes [facility] Name: Tata Friedman Age: 52 yrs Sex: Female : 1970 Arrival Date: 10/23/2022 Time: 08:48 Bed 11 Private MD: Diagnosis: SARS-associated coronavirus as the cause of diseases classified elsewhere Presentation: 10/23 08:55 Chief complaint: Patient states: she has been having cough, congestion, headache, ap3 fever, shortness of breath and a sore throat for approx 2 days now. Coronavirus screen: Client presents with at least one sign or symptom that may indicate coronavirus-19. Ebola Screen: No symptoms or risks identified at this time. Initial Sepsis Screen: Does the patient meet any 2 criteria? No. Patient's initial sepsis screen is negative. Does the patient have a suspected source of infection? No. Patient's initial sepsis screen is negative. Risk Assessment: Do you want to hurt yourself or someone else? Patient reports no desire to harm self or others. Onset of symptoms was October 21, 2022. 08:55 Method Of Arrival: Ambulatory ap3 08:55 Acuity: CAROLINE 4 ap3 Triage Assessment: 08:56 General: Appears ill, Behavior is calm, cooperative, appropriate for age. General: ap3 Reports chills for fever for feeling ill for fatigue for. Pain: Complains of pain in generalized body aches. Neuro: Level of Consciousness is awake, alert, obeys commands. Cardiovascular: Patient's skin is warm and dry. Respiratory: Airway is patent Respiratory effort is even, unlabored, Respiratory pattern is regular, symmetrical. EMERGENCY PHYSICIAN: 09:03 LMP N/A - Post-menopause ap3 Historical: - Allergies: 08:56 No Known Allergies; ap3 - PMHx: 08:56 "Drug addict, clean since 2017" "abused vicodin"; Bipolar disorder; depressive ap3 disorder; PTSD; Schizophrenia; - PSHx: 10:40 Cholecystectomy; hysterectomy; iw - Immunization history:: Client reports receiving the 2nd dose of the Covid vaccine. - Social history:: Smoking status: Patient reports the use of cigarette tobacco products, denies chronic smoking, but will smoke occasionally. Screenin:57 [facility] ED Fall Risk Assessment (Adult) History of falling in the last 3 months, ap3 including since admission No falls in past 3 months (0 pts). Abuse screen: Denies threats or abuse. Nutritional screening: No deficits noted. Tuberculosis screening: No symptoms or risk factors identified. Assessment: 10:13 Reassessment: Patient appears in no apparent distress at this time. pt c/o headache and iw nausea. 10:25 Reassessment: pt requesting to be "admitted for COVID" , I advised pt that her VS are iw normal and that her symptoms will improve over the next week, educated pt on return precautions including increasing SOB, chest pain, uncontrolled fever , uncontrolled vomiting . I advised pt that she can use OTC cold medication to treat symptoms, pt states she can't afford OTC meds , advised that FILE DRAWER FINISHER can prescribe ibuprofen or tylenol. Vital Signs: 08:55 BP 169 / 101; Pulse 72; Resp 18; Temp 98.9; Pulse Ox 98% ; Weight 53.52 kg; Height 5 ap3 ft. 6 in. ; Pain 8/10; 10:20 BP 159 / 98; Pulse 74; Resp 19 S; Pulse Ox 98% on R/A; iw 08:55 Body Mass Index 19.05 (53.52 kg, 167.64 cm) ap3 08:55 Pain Scale: Adult ap3 ED Course: 12 10:26 Patient did not have IV access during this emergency room visit. iw 10/23 08:51 Patient arrived in ED. ts1 08:51 Senait Mondragon FNP-C is [facility]. kb 08:51 Parth Parr MD is Attending Physician. kb 08:56 Triage completed. ap3 08:57 Arm band placed on right wrist. ap3 09:03 No provider procedures requiring assistance completed. ap3 09:04 Patient has correct armband on for positive identification. Bed in low position. Call ap3 light in reach. Pulse ox on. NIBP on. 09:04 COVID swab sent to lab. Flu and/or RSV swab sent to lab. Strep swab sent to lab. ap3 09:09 Chest Single View XRAY In Process Unspecified. EDMS 10:13 Beata Perez, [place] is Primary Nurse. iw 10:27 Provided Education on: COVID precautions, hand hygiene , isolation, tylenol/ibuprofen iw use . Administered Medications: 10:21 Drug: Ondansetron Oral Disintegrating Tablet Oral Disintegrating Tablet 4 mg Route: PO; iw 10:21 Drug: Acetaminophen PO 1000 mg Route: PO; iw Medication: 09:04 VIS not applicable for this client. ap3 Outcome: 10:21 Discharge ordered by . ananya 10:27 Discharged to home with family. iw 10:27 Condition: good 10:27 Discharge instructions given to patient, Instructed on discharge instructions, follow up and referral plans. Demonstrated understanding of instructions, follow-up care, Prescriptions given X 2. 10:28 Patient left the ED. iw Signatures: Dispatcher [employer] EDMS Senait Mondragon, [employer]-CkBeata Sandhu, RN RN iw Alexa Guillen RN RN ap3 Nu Louis PAS PAS ts1 Corrections: (The following items were deleted from the chart) 10:39 10:27 Discharge instructions given to family, Instructed on discharge instructions, iw follow up and referral plans. Demonstrated understanding of instructions, follow-up care, iw 10:40 10:39 BP 159 / 98; Pulse 74bpm; Resp 19bpm; Spontaneous; Pulse Ox 98% RA; iw iw
[2022-10-23] MEDS ORDERED: ONDANSETRON 4 MG (ODT) TAB ONE (10:28)
[2022-10-23] MEDS ORDERED: ACETAMINOPHEN 500 MG TAB ONE (10:28)
[2022-10-23 10:46] VITALS: BP 169/101; TEMP 98.9; O2SAT 98
== END 2022-10-23 10:28 | disposition home or self-care (01) ==
LOC: ER 08:48
DX: U07.1 COVID-19 (principal)
CPT/HCPCS: 87070; 81001; 87081; 87635; 87804 ×2; 71045; Q0162; 99284

== ENCOUNTER → 2023-04-24 | Emergency (ER) | payer OTHER ==
[~2023-04-24] MED LIST: DIPHENHYDRAMINE 50 MG/ML VIAL ONE; KETOROLAC 30 MG/ML INJ ONE; METOCLOPRAMIDE 10 MG/2mL INJ ONE; Magnesium Sulfate 2gm IVPB 2 G/50 ML BAG IV ONE
--- OUTSIDE RECORDS SUMMARY | 2023-04-24 10:02 | XMS REPORT | Continuity of Care Document ---
Author Name Unknown Address [address] [place] [address] [facility] Address [address] [place] [address] Care Team Providers Care Devulcanizer Head Name Role Phone NO, PCP Primary Care Physician Unavailab [place] Attending Clinician Unavailable Fabián Cardiology - Clear Attending Clinician Nara vailable Doctor Unassigned, Pablo Attending Clinician U Bushra Kendall Attending Clinician BUSHRA HALL Attending Clinician UnavailYasmin [place] MD Attending Clinician YASMIN BETTS Attending Clinician Unavailable HERNESTO PINEDA Attending Clinician Unavailable Payers Payer Name Policy Type Policy Number Effective Date Expirati on Date Source Problems Condition Name Condition Details Condition Category Status Onset Date Resolution Date Last Treatment Date Treating Clinician Comments Source [id number] PAT (generaliz ed anxiety disorder) Problem Common [facility] [id number] Bipolar 2 disorder Problem Common [facility] [id number] Mixed hyperlipid emia Problem [facility] [id number] Essential (primary) hypertensi on Problem [facility] [id number] Schizophre tim, unspecifie d type Problem [facility] [id number] Smokes 1/2 pack per day Problem [facility] [id number] Hx of myocardial infarction Problem [facility] No known active problems No known active problems Disease [facility] Allergies, Adverse Reactions, Alerts Allergy Name Allergy Type Status Severity Reaction(s) Onset Date Inactive Date Treating Clinician Comments Source Ibuprofe n Propensi ty to adverse reaction s Active Rash 03-03 00:00: 00 [facility] IBUPROFE N DRUG INGREDI Active Rash 03-03 00:00: 00 [facility] NO KNOWN ALLERGIE S Drug Class Active [facility] Social History Social Habit Start Date Stop Date Quantity Comments Source History of Tobacco Use Current Smoker [facility] Sex Assigned At [facility] Exposure to SARS-CoV-2 (event) Not sure [facility] 2020-03-03 00:00:00 2020-03-03 00:00:00 Ex-drinker (finding) [facility] History of Social function 2020-03-03 00:00:00 2020-03-03 00:00:00 [facility] Cigarettes smoked current (pack per day) - Reported 2019-06-02 00:00:00 2019-06-02 00:00:00 [facility] Cigarette pack-years 2019-06-02 00:00:00 2019-06-02 00:00:00 [facility] Tobacco use and exposure 2019-06-02 00:00:00 2019-06-02 00:00:00 Former smokeless tobacco user [facility] Smoking Status Start Date Stop Date Source Current Smoker 2023-03-13 00:00:00 [facility] Medications Ordered Medication Name Filled Medication Name Start Date Stop Date Current Medication? Ordering Clinician Indication Dosage Frequency Signature (SIG) Comments Components Source rOPINIRole HCl 0.25 MG rOPINIRole HCl 0.25 MG 2023- 2- 00:00: 00 No QD rOPINIRole HCl 0.25 MG rOPINIRole HCl 0.25 MG rOPINIRole HCl 0.25 MG 202303-13 00:00: 00 No QD rOPINIRole HCl 0.25 MG KlonoPIN 1 MG KlonoPIN 1 MG 2022-02 00:00: 00 No 1{table t} KlonoPIN 1 MG KlonoPIN 1 MG KlonoPIN 1 MG 2022-02 00:00: 00 No 1{table t} KlonoPIN 1 MG KlonoPIN 1 MG KlonoPIN 1 MG 2022-02 00:00: 00 No 1{table t} KlonoPIN 1 MG benzonatate 100 mg capsule 03-03 00:00: 00 Yes [id number] 100mg Take 1 capsule by mouth 3 (three) times daily as needed for Cough. [facility] al[facility] 90 mcg/actuati on inhaler 03-03 00:00: 00 Yes [id number] 2{puff} Inhale 2 Puffs every 4 (four) hours as needed for Wheezing or Shortness of Breath. [facility] benzonatate 100 mg capsule 03-03 00:00: 00 Yes [id number] 100mg Take 1 capsule by mouth 3 (three) times daily as needed for Cough. [facility] albuterol 90 mcg/actuati on inhaler 03-03 00:00: 00 Yes [id number] 2{puff} Inhale 2 Puffs every 4 (four) hours as needed for Wheezing or Shortness of Breath. [facility] benzonatate 100 mg capsule 03-03 00:00: 00 Yes [id number] 100mg Take 1 capsule by mouth 3 (three) times daily as needed for Cough. [facility] albuterol 90 mcg/actuati on inhaler 03-03 00:00: 00 Yes [id number] 2{puff} Inhale 2 Puffs every 4 (four) hours as needed for Wheezing or Shortness of Breath. [facility] benzonatate 100 mg capsule 03-03 00:00: 00 Yes [id number] 100mg Take 1 capsule by mouth 3 (three) times daily as needed for Cough. [facility] albuterol 90 mcg/actuati on inhaler 03-03 00:00: 00 Yes [id number] 2{puff} Inhale 2 Puffs every 4 (four) hours as needed for Wheezing or Shortness of Breath. [facility] diphenhydrA MINE (BENADRYL) injection 25 mg 09-10 17:45: 00 09-10 16:36 :00 No 25mg 25 mg, Slow IV Push, ONCE, 1 dose, 09/11/19 at 1245, STAT [facility] haloperidol lactate (HALDOL) injection 2.5 mg 09-10 17:45: 00 09-10 16:41 :00 No 2.5mg 2.5 mg, Intravenou s, ONCE, 1 dose, 09/11/19 at 1245, STAT [facility] famotidine (PEPCID (PF)) injection 20 mg 09-10 16:45: 00 09-10 16:37 :00 No 20mg 20 mg, IV Piggyback, ONCE, 1 dose, 09/11/19 at 1145, GAGE [facility] NaCl 0.9% (NS) bolus infusion 1,000 mL 09-10 16:45: 00 09-10 18:00 :00 No 1000mL at 999 mL/hr, 1,000 mL, IV Infusion, ONCE, 1 dose, 09/11/19 at 1145, GAGE [facility] buprenorphi ne-naloxone 8-2 mg sublingual film 09-10 16:34: [address] 16 mg under the tongue daily. [facility] cloNIDine 0.2 mg tablet 09-10 16:34: 41 Yes .2mg Take 0.2 mg by mouth 2 (two) times daily. [facility] QUEtiapine 50 mg tablet 09-10 16:34: 41 Yes 50mg Take 50 mg by mouth daily. [facility] mirtazapine 15 mg tablet 09-10 16:34: 41 Yes 15mg Take 15 mg by mouth at bedtime. [facility] lithium carbonate 300 mg tablet 09-10 16:34: 41 Yes 900mg Take 900 mg by mouth daily. [facility] venlafaxine XR 37.5 mg 24 hr capsule 09-10 16:34: 41 Yes 37.5mg Take 37.5 mg by mouth daily with breakfast. [facility] LORazepam 0.5 mg tablet 09-10 16:34: 41 Yes .5mg Take 0.5 mg by mouth 2 (two) times daily. [facility] haloperidol 0.5 mg tablet 09-10 16:34: 41 Yes .5mg Take 0.5 mg by mouth daily. [facility] buprenorphi ne-naloxone 8-2 mg sublingual film 09-10 16:34: [address] 16 mg under the tongue daily. [facility] cloNIDine 0.2 mg tablet 09-10 16:34: 41 Yes .2mg Take 0.2 mg by mouth 2 (two) times daily. [facility] QUEtiapine 50 mg tablet 09-10 16:34: 41 Yes 50mg Take 50 mg by mouth daily. [facility] mirtazapine 15 mg tablet 09-10 16:34: 41 Yes 15mg Take 15 mg by mouth at bedtime. [facility] lithium carbonate 300 mg tablet 09-10 16:34: 41 Yes 900mg Take 900 mg by mouth daily. [facility] venlafaxine XR 37.5 mg 24 hr capsule 09-10 16:34: 41 Yes 37.5mg Take 37.5 mg by mouth daily with breakfast. [facility] LORazepam 0.5 mg tablet 09-10 16:34: 41 Yes .5mg Take 0.5 mg by mouth 2 (two) times daily. [facility] haloperidol 0.5 mg tablet 09-10 16:34: 41 Yes .5mg Take 0.5 mg by mouth daily. [facility] venlafaxine XR 37.5 mg 24 hr capsule 09-10 11:34: 41 Yes 37.5mg Take 37.5 mg by mouth daily with breakfast. [facility] LORazepam 0.5 mg tablet 09-10 11:34: 41 Yes .5mg Take 0.5 mg by mouth 2 (two) times daily. [facility] haloperidol 0.5 mg tablet 09-10 11:34: 41 Yes .5mg Take 0.5 mg by mouth daily. [facility] buprenorphi ne-naloxone 8-2 mg sublingual film 09-10 11:34: [address] 16 mg under the tongue daily. [facility] cloNIDine 0.2 mg tablet 09-10 11:34: 41 Yes .2mg Take 0.2 mg by mouth 2 (two) times daily. [facility] QUEtiapine 50 mg tablet 09-10 11:34: 41 Yes 50mg Take 50 mg by mouth daily. [facility] mirtazapine 15 mg tablet 09-10 11:34: 41 Yes 15mg Take 15 mg by mouth at bedtime. [facility] lithium carbonate 300 mg tablet 09-10 11:34: 41 Yes 900mg Take 900 mg by mouth daily. [facility] venlafaxine XR 37.5 mg 24 hr capsule 09-10 11:34: 41 Yes 37.5mg Take 37.5 mg by mouth daily with breakfast. [facility] LORazepam 0.5 mg tablet 09-10 11:34: 41 Yes .5mg Take 0.5 mg by mouth 2 (two) times daily. [facility] haloperidol 0.5 mg tablet 09-10 11:34: 41 Yes .5mg Take 0.5 mg by mouth daily. [facility] buprenorphi ne-naloxone 8-2 mg sublingual film 09-10 11:34: [address] 16 mg under the tongue daily. [facility] cloNIDine 0.2 mg tablet 09-10 11:34: 41 Yes .2mg Take 0.2 mg by mouth 2 (two) times daily. [facility] QUEtiapine 50 mg tablet 09-10 11:34: 41 Yes 50mg Take 50 mg by mouth daily. [facility] mirtazapine 15 mg tablet 09-10 11:34: 41 Yes 15mg Take 15 mg by mouth at bedtime. [facility] lithium carbonate 300 mg tablet 09-10 11:34: 41 Yes 900mg Take 900 mg by mouth daily. [facility] venlafaxine XR 37.5 mg 24 hr capsule 09-10 11:34: 41 Yes 37.5mg Take 37.5 mg by mouth daily with breakfast. [facility] LORazepam 0.5 mg tablet 09-10 11:34: 41 Yes .5mg Take 0.5 mg by mouth 2 (two) times daily. [facility] haloperidol 0.5 mg tablet 09-10 11:34: 41 Yes .5mg Take 0.5 mg by mouth daily. [facility] buprenorphi ne-naloxone 8-2 mg sublingual film 09-10 11:34: [address] 16 mg under the tongue daily. [facility] cloNIDine 0.2 mg tablet 09-10 11:34: 41 Yes .2mg Take 0.2 mg by mouth 2 (two) times daily. [facility] QUEtiapine 50 mg tablet 09-10 11:34: 41 Yes 50mg Take 50 mg by mouth daily. [facility] mirtazapine 15 mg tablet 09-10 11:34: 41 Yes 15mg Take 15 mg by mouth at bedtime. [facility] lithium carbonate 300 mg tablet 09-10 11:34: 41 Yes 900mg Take 900 mg by mouth daily. [facility] famotidine 20 mg tablet 09-10 00:00: 00 Yes [id number] 20mg Take 1 tablet by mouth 2 (two) times daily. [facility] proMETHazin e 25 mg tablet 09-10 00:00: 00 Yes [id number] 25mg Take 1 tablet by mouth every 6 (six) hours as needed for Nausea and Vomiting (N/V). [facility] famotidine 20 mg tablet 09-10 00:00: 00 Yes [id number] 20mg Take 1 tablet by mouth 2 (two) times daily. [facility] proMETHazin e 25 mg tablet 09-10 00:00: 00 Yes [id number] 25mg Take 1 tablet by mouth every 6 (six) hours as needed for Nausea and Vomiting (N/V). [facility] famotidine 20 mg tablet 09-10 00:00: 00 Yes [id number] 20mg Take 1 tablet by mouth 2 (two) times daily. [facility] proMETHazin e 25 mg tablet 09-10 00:00: 00 Yes [id number] 25mg Take 1 tablet by mouth every 6 (six) hours as needed for Nausea and Vomiting (N/V). [facility] famotidine 20 mg tablet 09-10 00:00: 00 Yes [id number] 20mg Take 1 tablet by mouth 2 (two) times daily. [facility] proMETHazin e 25 mg tablet 09-10 00:00: 00 Yes [id number] 25mg Take 1 tablet by mouth every 6 (six) hours as needed for Nausea and Vomiting (N/V). [facility] famotidine 20 mg tablet 09-10 00:00: 00 Yes [id number] 20mg Take 1 tablet by mouth 2 (two) times daily. [facility] proMETHazin e 25 mg tablet 09-10 00:00: 00 Yes [id number] 25mg Take 1 tablet by mouth every 6 (six) hours as needed for Nausea and Vomiting (N/V). [facility] Cefdinir (Omnicef) 300 Mg Capsule Cefdinir (Omnicef) 300 Mg Capsule 09-13 00:00: 00 Yes Grant Osegueraz [employer] 300 Twice A Day [facility] Ondansetron Hcl (Zofran*) 4 Mg Tablet Ondansetron Hcl (Zofran*) 4 Mg Tablet 09-13 00:00: 00 Yes Grant Cotton Altman Inspector General 4 Every 6 Hours as needed for Nausea [facility] Benztropine Mesylate 2 Mg Tablet Benztropine Mesylate 2 Mg Tablet Yes 1 Twice A Day [facility] Buprenorphi ne Hcl/Naloxon e Hcl (Suboxone 8 Mg-2 Mg Sl Film) 1 Each Film Buprenorphi ne Hcl/Naloxon e Hcl (Suboxone 8 Mg-2 Mg Sl Film) 1 Each Film Yes 1 Daily [facility] Clonidine Hcl 0.1 Mg Tablet Clonidine Hcl 0.1 Mg Tablet Yes 1 Twice A Day [facility] Ogilvie Carbonate 450 Mg Tablet.er Ogilvie Carbonate 450 Mg Tablet.er Yes 1 Twice A Day [facility] Mirtazapine (Remeron) 15 Mg Tablet Mirtazapine (Remeron) 15 Mg Tablet Yes 1 Bedtime [facility] Oxcarbazepi ne (Trileptal) 300 Mg Tablet Oxcarbazepi ne (Trileptal) 300 Mg Tablet Yes 1 Daily [facility] Quetiapine Fumarate (Seroquel) 25 Mg Tablet Quetiapine Fumarate (Seroquel) 25 Mg Tablet Yes 25 Twice A Day [facility] cloNIDine HCl 0.3 MG cloNIDine HCl 0.3 MG No 1{table t} BID cloNIDine HCl 0.3 MG KlonoPIN 1 MG KlonoPIN 1 MG No 1{table t} KlonoPIN 1 MG Suboxone 8-2 MG Suboxone 8-2 MG No BID Suboxone 8-2 MG SEROquel 25 MG SEROquel 25 MG No 1{table t_at_be dtime} QD SEROquel 25 MG cloNIDine HCl 0.3 MG cloNIDine HCl 0.3 MG No 1{table t} BID cloNIDine HCl 0.3 MG Suboxone 8-2 MG Suboxone 8-2 MG No BID Suboxone 8-2 MG SEROquel 25 MG SEROquel 25 MG No 1{table t_at_be dtime} QD SEROquel 25 MG KlonoPIN 1 MG KlonoPIN 1 MG No 1{table t} KlonoPIN 1 MG cloNIDine HCl 0.3 MG cloNIDine HCl 0.3 MG No 1{table t} BID cloNIDine HCl 0.3 MG Suboxone 8-2 MG Suboxone 8-2 MG No BID Suboxone 8-2 MG SEROquel 25 MG SEROquel 25 MG No 1{table t_at_be dtime} QD SEROquel 25 MG KlonoPIN 1 MG KlonoPIN 1 MG No 1{table t} KlonoPIN 1 MG cloNIDine HCl 0.3 MG cloNIDine HCl 0.3 MG No 1{table t} BID cloNIDine HCl 0.3 MG Suboxone 8-2 MG Suboxone 8-2 MG No BID Suboxone 8-2 MG SEROquel 25 MG SEROquel 25 MG No 1{table t_at_be dtime} QD SEROquel 25 MG KlonoPIN 1 MG KlonoPIN 1 MG No 1{table t} KlonoPIN 1 MG cloNIDine HCl 0.3 MG cloNIDine HCl 0.3 MG No 1{table t} BID cloNIDine HCl 0.3 MG KlonoPIN 1 MG KlonoPIN 1 MG No 1{table t} KlonoPIN 1 MG Suboxone 8-2 MG Suboxone 8-2 MG No BID Suboxone 8-2 MG SEROquel 25 MG SEROquel 25 MG No 1{table t_at_be dtime} QD SEROquel 25 MG Immunizations Ordered Immunization Name Filled Immunization Name Date Status Comments Source Fluarix (IIV4) - SDS - 0.5mL Fluarix (IIV4) - SDS - 0.5mL Unknown Completed [facility] Fluarix (IIV4) - SDS - 0.5mL Fluarix (IIV4) - SDS - 0.5mL Unknown Completed [facility] Fluarix (IIV4) - SDS - 0.5mL Fluarix (IIV4) - SDS - 0.5mL Unknown Completed [facility] Fluarix (IIV4) - SDS - 0.5mL Fluarix (IIV4) - SDS - 0.5mL Unknown Completed [facility] Fluarix (IIV4) - SDS - 0.5mL Fluarix (IIV4) - SDS - 0.5mL Unknown Completed [facility] Vital Signs Vital Name Observation Time Observation Value Comments S ource oximetry 2023-03-13 09:00:00 99 % Commo n [facility] respiratory rate 2023-03-13 09:00:00 16 /min Common [facility] blood pressure systolic 2023-03-13 09:00:00 112 mm[Hg[facility] blood pressure diastolic 2023-03-13 09:00:00 80 mm[Hg] Common [facility] height 2023-03-13 09:00:00 65 [in_i] Commo n [facility] weight 2023-03-13 09:00:00 105 [lb_av] Comm on [facility] temperature 2023-03-13 09:00:00 97.2 [degF] Com mon [facility] bmi 2023-03-13 09:00:00 17.47 kg/m2 Comm on [facility] respiratory rate 2023-02-13 09:00:00 17 /min [facility] blood pressure systolic 2023-02-13 09:00:00 140 mm[Hg] [facility] blood pressure diastolic 2023-02-13 09:00:00 80 mm[Hg] [facility] height 2023-02-13 09:00:00 65.5 [in_i] Comm on [facility] weight 2023-02-13 09:00:00 109 [lb_av] Comm on [facility] temperature 2023-02-13 09:00:00 97.4 [degF] Com mon [facility] bmi 2023-02-13 09:00:00 17.86 kg/m2 Comm on [facility] oximetry 2023-02-13 09:00:00 96 % Commo n [facility] height 2023-01-09 09:20:00 65.5 [in_i] Comm on [facility] weight 2023-01-09 09:20:00 104 [lb_av] Comm on [facility] temperature 2023-01-09 09:20:00 97.4 [degF] Com mon [facility] bmi 2023-01-09 09:20:00 17.04 kg/m2 Comm on [facility] oximetry 2023-01-09 09:20:00 98 % Commo n [facility] respiratory rate 2023-01-09 09:20:00 17 /min [facility] blood pressure systolic 2023-01-09 09:20:00 144 mm[Hg] Common [facility] blood pressure diastolic 2023-01-09 09:20:00 80 mm[Hg] [facility] Systolic blood pressure 2020-03-03 18:05:00 130 mm[Hg] [facility] Diastolic blood pressure 2020-03-03 18:05:00 89 mm[Hg] [facility] Heart rate 2020-03-03 18:05:00 99 /min [facility] Respiratory rate 2020-03-03 18:05:00 17 /min [facility] Oxygen saturation in Arterial blood by Pulse oximetry 2020-03-03 18:05:00 99 /min [facility] Body temperature 2020-03-03 15:55:00 37.06 Leida [facility] Body weight 2020-03-03 15:53:00 54.432 kg [facility] Systolic blood pressure 2019-09-11 17:07:31 137 mm[Hg] [facility] Diastolic blood pressure 2019-09-11 17:07:31 91 mm[Hg] [facility] Heart rate 2019-09-11 17:07:31 98 /min [facility] Body temperature 2019-09-11 17:07:31 37.17 Leida [facility] Respiratory rate 2019-09-11 17:07:31 22 /min [facility] Oxygen saturation in Arterial blood by Pulse oximetry 2019-09-11 17:07:31 98 /min [facility] Body weight 2019-09-11 16:34:00 50 kg [facility] Procedures Procedure Date / Time Performed Performing Clinicia n Source REFERRAL- REQUEST/RESPONSE 2023-04-17 06:01:00 Doctor Unassigned, Pablo [facility] REFERRAL- REQUEST/RESPONSE 2023-01-09 06:01:00 Doctor Unassigned, Pablo [facility] XR CHEST 2 VW 2020-03-03 16:39:10 Bushra Hall [facility] POCT TEST 2020-03-03 16:16:00 Catarino Hall [facility] COVID-19 (ID NOW RAPID TESTING) 2020-03-03 16:16:00 Bushra Hall [facility] CBC WITH DIFF 2019-09-11 17:23:00 Yasmin Betts [facility] TROPONIN I 2019-09-11 17:01:00 Yasmin Betts [facility] XR ABDOMEN ACUTE SERIES 2019-09-11 16:59:22 Yasmin Betts [facility] EKG-12 LEAD 2019-09-11 16:49:04 Yasmin Betts [facility] LIPASE 2019-09-11 16:42:00 Yasmin Betts [facility] TEST, SERUM 2019-09-11 16:42:00 Yasmin Betts [facility] HEPATIC FUNCTION PANEL (01111) (ALB,T.PRO,BILI T,BU/BC,ALT,AST,ALK PHOS) 2019-09-11 16:42:00 Yasmin Betts [facility] BASIC METABOLIC PANEL (NA, K, CL, CO2, GLUCOSE, BUN, CREATININE, CA) 2019-09-11 16:42:00 Yasmin Betts [facility] LITHIUM 2019-09-11 16:42:00 Yasmin Betts [facility] Computed tomography of abdomen and pelvis with contrast 2018-09-13 00:00:00 GRANT ALTMAN [facility] Encounters Start Date/Time End Date/Time Encounter Type Admission Type Attending Clinicians Care Facility Care Department Encounter ID Source 2023-04-07 11:32:01 Outpatient Santa Hoffman [facility] [id number] Common [facility] 2023-01-09 08:39:00 Outpatient Santa Hoffman [facility] [id number] [facility] 2023-04-18 00:00:00 2023-04-18 00:00:00 Letter (Out) Fabián, Cardiology - [facility] MEDICAL OFFICE BUILDING [id number] [facility] 2023-04-17 00:00:00 2023-04-17 00:00:00 Orders Only Doctor Unassigned, Pablo [facility] [id number] [facility] 2023-04-01 00:00:00 2023-04-01 00:00:00 (TEL) [facility] [id number] [facility] 2023-03-13 00:00:00 2023-03-13 00:00:00 OFFICE VISIT ESTAB PT LEVEL 5 [facility] [id number] [facility] 2023-02-13 00:00:00 2023-02-13 00:00:00 OFFICE VISIT ESTAB PT LEVEL 4 [facility] ST[facility] [id number] [facility] 2023-01-30 00:00:00 2023-01-30 00:00:00 (TEL) [facility] ST[facility] [id number] [facility] 2023-01-09 00:00:00 2023-01-09 00:00:00 OFFICE VISIT NEW PT LEVEL 4 [facility] ST[facility] [id number] [facility] 2023-01-09 00:00:00 2023-01-09 00:00:00 Orders Only Doctor Unassigned, Pablo [facility] [id number] [facility] 2020-03-03 09:55:00 2020-03-03 12:07:00 Emergency Bushra Hall [facility] [id number] [facility] 2020-03-03 09:55:00 2020-03-03 09:55:00 Emergency X BSUHRA HALL [facility] ERT [id number] [facility] 2019-09-11 11:27:00 2019-09-11 14:04:00 Emergency Yasmin Betts [facility] [id number] [facility] 2019-09-11 11:27:00 2019-09-11 11:27:00 Emergency X YASMIN BETTS [facility] ERT [id number] [facility] 2018-09-13 11:09:00 2018-09-13 18:00:00 Departed Emergency Room 1 HERNESTO PINEDA [facility] [id number] 94 [facility] Results Test Description Test Time Test Comments Results Result Co mments Source TSH RFLX FT4 AND [id number] 00:00:00* Test Item Value Reference Range Interpretation Comme nts TSH RFLX FT4 AND FT3 (test code = 71189-7) 0.553 UIU/ML See_Comment [Automated messa ge] The system which generated this result transmitted reference range: 0.400-4.100 UIU/ML. The reference range was not used to interpret this result as normal/abnormal. LIPID PANEL WITH REFLEX DIRECT [id number] 00:00:00* Test Item Value Reference Range Interpretation Comme nts CALC LDL CHOL (test code = 05743-2) 69 MG/DL See_Comment [Automated messa ge] The system which generated this result transmitted reference range: <100 MG/DL. The reference range was not used to interpret this result as normal/abnormal. CHOLESTEROL (test code = 2093-3) 159 MG/DL See_Comment [Automated messa ge] The system which generated this result transmitted reference range: <200 MG/DL. The reference range was not used to interpret this result as normal/abnormal. HDL CHOLESTEROL (test code = 2085-9) 77 MG/DL See_Comment [Automated messa ge] The system which generated this result transmitted reference range: >39 MG/DL. The reference range was not used to interpret this result as normal/abnormal. RISK RATIO LDL/HDL (test code = 15531-0) 0.90 RATIO See_Comment [Automated message] The system which generated this result transmitted reference range: <3.22 RATIO. The reference range was not used to interpret this result as normal/abnormal. TRIGLYCERIDES (test code = 2571-8) 46 MG/DL See_Comment [Automated messa ge] The system which generated this result transmitted reference range: <150 MG/DL. The reference range was not used to interpret this result as normal/abnormal. COMPREHENSIVE METABOLIC [id number] 00:00:00* Test Item Value Reference Range Interpretation Comme nts ALBUMIN (test code = 1751-7) 4.4 G/DL See_Comment [Automated messa ge] The system which generated this result transmitted reference range: 3.5-5.2 G/DL. The reference range was not used to interpret this result as normal/abnormal. ALKALINE PHOSPHATASE (test code = 6768-6) 83 U/L See_Comment [Automated message] The system which generated this result transmitted reference range: 40-128 U/L. The reference range was not used to interpret this result as normal/abnormal. BILIRUBIN, TOTAL (test code = 1975-2) 0.5 MG/DL See_Comment [Automated message] The system which generated this result transmitted reference range: <=1.2 MG/DL. The reference range was not used to interpret this result as normal/abnormal. BUN (test code = 3094-0) 13 MG/DL See_Comment [Automated messa ge] The system which generated this result transmitted reference range: 6-20 MG/DL. The reference range was not used to interpret this result as normal/abnormal. CALCIUM (test code = 60081-9) 9.3 MG/DL See_Comment [Automated messa ge] The system which generated this result transmitted reference range: 8.5-10.5 MG/DL. The reference range was not used to interpret this result as normal/abnormal. CALC A/G RATIO (test code = 1759-0) 2.2 RATIO See_Comment [Automated messa ge] The system which generated this result transmitted reference range: 1.0-2.6 RATIO. The reference range was not used to interpret this result as normal/abnormal. CALC BUN/CREAT (test code = 3097-3) 17 RATIO See_Comment [Automated messa ge] The system which generated this result transmitted reference range: 6-28 RATIO. The reference range was not used to interpret this result as normal/abnormal. CALC GLOBULIN (test code = 77699-9) 2.0 G/DL See_Comment [Automated messa ge] The system which generated this result transmitted reference range: 1.9-3.7 G/DL. The reference range was not used to interpret this result as normal/abnormal. CARBON DIOXIDE (test code = 1963-8) 25 MEQ/L See_Comment [Automated messa ge] The system which generated this result transmitted reference range: 19-31 MEQ/L. The reference range was not used to interpret this result as normal/abnormal. CHLORIDE (test code = 2075-0) 106 MEQ/L See_Comment [Automated messa ge] The system which generated this result transmitted reference range: 95-107 MEQ/L. The reference range was not used to interpret this result as normal/abnormal. CREATININE (test code = 2160-0) 0.76 MG/DL See_Comment [Automated messa ge] The system which generated this result transmitted reference range: 0.60-1.30 MG/DL. The reference range was not used to interpret this result as normal/abnormal. eGFR (2020 CKD-EPI) (test code = 34527-9) 95 ML/MIN/1.73 See_Comment [Automated messa ge] The system which generated this result transmitted reference range: >60 ML/MIN/1.73. The reference range was not used to interpret this result as normal/abnormal. GLUCOSE (test code = 1558-6) 93 MG/DL See_Comment [Automated messa ge] The system which generated this result transmitted reference range: 70-99 MG/DL. The reference range was not used to interpret this result as normal/abnormal. POTASSIUM (test code = 2823-3) 5.3 MEQ/L See_Comment [Automated messa ge] The system which generated this result transmitted reference range: 3.5-5.4 MEQ/L. The reference range was not used to interpret this result as normal/abnormal. PROTEIN, TOTAL (test code = 2885-2) 6.4 G/DL See_Comment [Automated messa ge] The system which generated this result transmitted reference range: 6.1-8.3 G/DL. The reference range was not used to interpret this result as normal/abnormal. AST (test code = 1920-8) 50 U/L See_Comment H [Automated messa ge] The system which generated this result transmitted reference range: 9-40 U/L. The reference range was not used to interpret this result as normal/abnormal. ALT (test code = 1742-6) 40 U/L See_Comment [Automated messa ge] The system which generated this result transmitted reference range: 5-40 U/L. The reference range was not used to interpret this result as normal/abnormal. SODIUM (test code = 2951-2) 142 MEQ/L See_Comment [Automated [employer]] The system which generated this result transmitted reference range: 133-146 MEQ/L. The reference range was not used to interpret this result as normal/abnormal. COVID-19 (ID NOW RAPID TESTING)2020-03-03 17:05:00* Test Item Value Reference Range Interpretation Comme nts SARS-CoV-2 Rapid ID NOW (test code = 00422-2) Not Detected Not Detected SHALOM (test code = SHALOM) ID NOW COVID-19 As say is an isothermal nucleic acid amplification test intended for the qualitative detection of nucleic acid from SARS-CoV-2 viral RNA in nasopharyngeal (ENDS BREAKAGE CLERK) specimens. It is used under Emergency Use [...] clinically indicated. Lab Interpretation (test code = 84585-0) [facility] INJJ9620-34-42 16:16:00* Test Item Value Reference Range Interpretation Comme nts POCT PREG (test code = 1605) negative On board controls acceptable with C Line (test code = 3574) present POCT PREG LOT # (test code = 3575) [id number] POCT PREG TEST DATE ( test code = 3576) 10/10/2021 Lab Interpretation (test cod e = 44369-6) Normal [facility]ute Abdomen Nrxaxr0272-66-32 18:23:32No acute cardiopulmonary process. Nonobstructive bowel gas pattern. [...] of small bowel loops is noted in thepel vis. There is fecal material noted throughout the colon, probablymoderate fecal burden. Cholecystectomy clips seen in the right upper quadrant. No suspiciouscalcification identified. [facility], Radiant Results Inft User - 09/11/2019 1:24 PM CDTXR ABDOMEN ACUTE SERIESHISTORY: vomiting, eval for obstruction COMPARISON: None available.FINDINGS:Chest: Lungs are mildly hyperinflated. No focal consolidationidentified.There may be trace right-sided effusion. No effusion [...] quadrant. No suspiciouscalcification identified.IMPRESSIONNo acute cardiopulmonary process.Nonobstructive bowel gas pattern.[facility] Troponin V5136-04-02 17:47:00* Test Item Value Reference Range Interpretation Comme nts TROPONIN I (test code = 8980764754) 0.013 ng/mL See_Comment [Automated message] The system which generated this result transmitted reference range: <=0.034. The reference range was not used to interpret this result as normal/abnormal. SHALOM (test code = SHALOM) Equal or Less than 0.034 ng/ml---Normal ?Note: Cardiac troponin begins to [...] patient's use of biotin. ? Lab Interpretation (test code = 82219-2) Normal [facility] with Iipmzdaovhan2814-23-80 17:39:00* Test Item Value Reference Range Interpretation Comme nts WBC (test code = 6690-2) See_Comment [Automated [facility]] The system which generated this result transmitted reference range: 4.30 - 11.10 10*3/?L. The reference range was not used to interpret this result as normal/abnormal. RBC (test code = 789-8) See_Comment [Automated [facility]] The system which generated this result transmitted reference range: 3.93 - 5.25 10*6/?L. The reference range was not used to interpret this result as normal/abnormal. HGB (test code = 718-7) 16.6 g/dL 11.6-15 H HCT (test code = 4544-3) 47.7 % 35.7-45.2 H MCV (test code = 787-2) 91.2 fL 80.6-95.5 MCH (test code = 785-6) 31.7 pg 25.9-32.8 MCHC (test code = 786-4) 34.8 g/dL 31.6-35.1 RDW-SD (test code = 57537-8) 43.0 fL 39-49.9 RDW-CV (test code = 788-0) 12.9 % 12-15.5 PLT (test code = 777-3) See_Comment [Automated messa ge] The system which generated this result transmitted reference range: 166 - 358 10*3/?L. The reference range was not used to interpret this result as normal/abnormal. MPV (test code = 31271-4) 11.7 fL 9.5-12.9 NRBC/100 WBC (test code = 7235817466) See_Comment [Automated [employer]] The system which generated this result transmitted reference range: 0.0 - 10.0 /100 WBCs. The reference range was not used to interpret this result as normal/abnormal. NRBC x10^3 (test code = 0312910817) <0.01 See_Comment [Automated messa ge] The system which generated this result transmitted reference range: 10*3/?L. The reference range was not used to interpret this result as normal/abnormal. GRAN MAT (NEUT) % (test code = 770-8) 73.1 % IMM GRAN % (test code = 0658713690) 0.20 % LYMPH % (test code = 736-9) 17.1 % MONO % (test code = 5905-5) 8.2 % EOS % (test code = 713-8) 0.6 % BASO % (test code = 706-2) 0.8 % GRAN MAT x10^3(ANC) (test code = 7286731652) 6.47 10*3/uL 1.88-7.09 IMM GRAN x10^3 (test code = 4883968927) <0.03 0-0.06 LYMPH x10^3 (test code = 731-0) 1.51 10*3/uL 1.32-3.29 MONO x10^3 (test code = 742-7) 0.73 10*3/uL 0.33-0.92 EOS x10^3 (test code = 711-2) 0.05 10*3/uL 0.03-0.39 BASO x10^3 (test code = 704-7) 0.07 10*3/uL 0.01-0.07 Lab Interpretation (test code = 03297-0) [facility]normal [facility]2020-08-01 17:34:00* Test Item Value Reference Range Interpretation Comme nts [place] (test code = 1260746627) <0.2 0.6-1.2 L SHALOM (test code = SHALOM) Toxic Range: ? Greater than 1.2 mmol/L Lab Interpretation (test code = 80109-5) Abnormal [facility]ale[facility] Function Panel (ALB, T.PRO, BILI T, BU/BC, ALT, AST, ALK PHOS)2019-09-11 17:20:00* Test Item Value Reference Range Interpretation Comme nts TOTAL BILI (test code = 1253633822) 0.6 mg/dL 0.1-1.1 BILI UNCON (test code = 9321502695) 0.7 mg/dL 0.1-1.1 BILI CONJ (test code = 5425841474) 0.0 mg/dL 0-0.3 T PROTEIN (test code = 8909283203) 7.9 g/dL 6.3-8.2 ALBUMIN (test code = 6865619198) 4.9 g/dL 3.5-5 ALK PHOS (test code = 6955781150) 106 U/L 34-122 ALTv (test code = 1742-6) 70 U/L 5-35 H AST(SGOT) (test code = 6422104540) 85 U/L 13-40 H Lab Interpretation (test cod e = 18409-2) Abnormal [facility] Met[facility] (NA, K, CL, CO2, GLUCOSE, BUN, CREATININE, CA)2019-09-11 17:20:00* Test Item Value Reference Range Interpretation Comme nts NA (test code = 3916186612) 137 mmol/L 135-145 K (test code = 4577977674) 4.2 mmol/L 3.5-5 CL (test code = 8802603265) 105 mmol/L 98-108 CO2 TOTAL (test code = 9154844839) 26 mmol/L 23-31 AGAP (test code = 8938742644) 2-16 BUN (test code = 1437336948) 15 mg/dL 7-23 GLUCOSE (test code = 1922104699) 127 mg/dL 70-110 H CREATININE (test code = 9724421362) 0.55 mg/dL 0.5-1.04 CALCIUM (test code = 8723019327) 10.4 mg/dL 8.6-10.6 eGFR Calculation (Non-) (test code = 9439904302) mL/min/1.73m2 eGFR Calculation () (test code = 9124324444) mL/min/1.73m2 SHALOM (test code = SHALOM) Association of [...] or abnormalities in imaging tests). Lab Interpretation (test code = 96170-6) Abnormal [facility]aleLipase Cywfq4665-43-33 17:20:00* Test Item Value Reference Range Interpretation Comme nts LIPASE (test code = 2819549491) 106 U/L 0-220 Lab Interpretation (test cod e = 07462-1) Normal [facility]alePregnancy Test, Qzuqg3098-43-28 17:15:00* Test Item Value Reference Range Interpretation Comme nts PREG SERUM (test code = 5575744326) Negative SHALOM (test code = SHALOM) Less than 10 IU/L. ?If low titer or ectopic is suspected, resubmit specimen in 48-72 hours. [facility] SINGLE (PORTABLE)2018-09-13 16:05:00[address] [place] [address] PatientName: TATA GRAHAM MR #: [id number] : 1970 Age/Sex: 48/F Req #: [id number] Adm Physician: Ordered by: GRANT ALTMAN ENDS BREAKAGE CLERK Report #: [id number] Location: ER Room/Bed: Procedure: [id number] DX/CHEST SINGLE (PORTABLE) Exam Date: 09/13/18 Exam Time: 1515 REPORT STATUS: Signed EXAMINATION: CHEST SINGLE (PORTABLE) INDICATION: cough, rule out pneumonia [id number] 1515COMPARISON: None FINDINGS: PA and lateral views TUBES [...] effusion. No infiltrates. Signed by: Dr. Celestina Velasco MD on 09/13/2018 4:07 PM Dictated By: CELESTINA VIDALES MD 06 Transcribed By: BENI on 09/13/181606 COPY TO: GRANT ALTMAN NPCT ABDOMEN/PELVIS C9916-77-59 14:45:00[place] [address] PatientName: TATA GRAHAM MR #: [id number] : 1970 Age/Sex: 48/F Req #: [id number] Adm Physician: Ordered by: GRANT ALTMAN ENDS BREAKAGE CLERK Report #: [id number] Location: ER Room/Bed: Procedure: [id number] CT/CT ABDOMEN/PELVIS W Exam Date: 09/13/18 Exam Time: 1415 REPORT STATUS: Signed ADDENDUM #1 Subcentimeter air cyst in the right lower lobe. Signed by: Dr. Celestina Vidales MD on 09/13/2018 4:[address] Abdomen And Pelvis with Intravenous Contrast INDICATION: Nausea, vomiting upper abdominal pain, n/v/d, rule out colitis [id number] 1415 TECHNIQUE: Thin collimation axial images obtained from the diaphragm to the level of the pubic symphysis following the uneventful administration of 100 cc of low osmolar, nonionic intravenous contrast. Dose reduction techniques used: Automated exposure control, adjustment of the mAs and/or kVp according to patient size, standardized low-dose protocol, and/or iterative reconstruction technique. RADIATION DOSE: Total DLP: 170.33 mGy*cm Estimated effective dose: (DLP x 0.015 x size factor) mSv CTDIvol has been reviewed. It is below the limits set by the Radiation Protocol Committee ( RPC). COMPARISON: None. ABDOMEN FINDINGS: Lung Bases: Clear. The visualized portions of the mediastinum are normal.. Liver: Mildly decreased attenuation suggestive of steatosis. No evidence for mass.Gallbladder: Absent. No biliary ductal dilatation. Pancreas: Normal [...] with normal wall thickness. Appendix: Normal appendix. Bladder:Normal. The uterus is absent. No adnexal mass. Peritoneum/or peritoneum: No free fluid or fluid collection. Bones: No focal osseous lesions. IMPRESSION: 1. No evidence for bowel obstruction or inflammation. Normal appendix. 2. Status post cholecystectomy and hysterectomy. 3. Pancreas divisum. 4. Steatosis. Signed by: Dr. Celestina Vidales MD on 09/13/2018 2:49 PM Dictated By: CELESTINA VIDALES MD 1606 Transcribed By: BENI on 09/13/18 1449 COPY TO: GRANT ALTMAN NPSodium Iqfrv9209-79-48 12:25:00* Test Item Value Reference Range Interpretation Comme nts Sodium Level (test code = 2951-2) 139 136-145 [facility] Smyil5080-65-66 12:25:00* Test Item Value Reference Range Interpretation Comme nts Potassium Level (test code = 2823-3) 3.3 3.5-5.1 L [facility] SystemChloride Actzp2468-55-22 12:25:00* Test Item Value Reference Range Interpretation Comme nts Chloride Level (test code = 2075-0) 103 98-107 [facility] SystemCarbon Dioxide Nyebz9894-77-34 12:25:00* Test Item Value Reference Range Interpretation Comme nts Carbon Dioxide Level (test c ode = 2028-9) 22 22-29 [facility] SystemAnion Nvd2136-28-65 12:25:00* Test Item Value Reference Range Interpretation Comme nts Anion Gap (test code = 79170-0) 17.3 8-16 H [facility] SystemBlood Urea Muoklgcl9038-92-18 12:25:00* Test Item Value Reference Range Interpretation Comme nts Blood Urea Nitrogen (test co de = 3094-0) 12 7- [facility] SystemCreatinine2019-08-04 12:25:00* Test Item Value Reference Range Interpretation Comme nts Creatinine (test code = 2160-0) 0.78 0.57-1.11 [facility] SystemBUN/Creatinine Ajakv8970-89-28 12:25:00* Test Item Value Reference Range Interpretation Comme nts BUN/Creatinine Ratio (test c ode = 3097-3) 15 6-25 [facility] SystemEstimat Glomerular Filtration Qvto2722-25-37 12:25:00* Test Item Value Reference Range Interpretation Comme nts Estimat Glomerular Filtratio n Rate (test code = 165533026) > 60 >60 Ranges were taken from the National Kidney Disease Education Program and the National Kidney Foundation literature.Reference ranges:60 or greater: Jkjzat54- 59 (for 3 consecutive months): Chronic kidney disease 15 or less: Kidney failure [facility] SystemGlucose Qbexl5756-50-05 12:25:00* Test Item Value Reference Range Interpretation Comme nts Glucose Level (test code = SBA4385) 143 74-118 H [facility] SystemCalcium Odvph6822-64-05 12:25:00* Test Item Value Reference Range Interpretation Comme nts Calcium Level (test code = 80090-3) 10.1 8.4-10.2 [facility] SystemMagnesium Rlwhv7454-08-87 12:25:00* Test Item Value Reference Range Interpretation Comme nts Magnesium Level (test code = 88147-9) 2.3 1.3-2.1 H [facility] SystemTotal Cfbxgputu8774-76-27 12:25:00* Test Item Value Reference Range Interpretation Comme nts Total Bilirubin (test code = 1975-2) 0.7 0.2-1.2 [facility] SystemAspartate Amino Transf (AST/SGOT)2018-09-13 12:25:00* Test Item Value Reference Range Interpretation Comme nts Aspartate Amino Transf (AST/ SGOT) (test code = Aspartate Amino Transf (AST/SGOT)) 24 5-34 [facility] SystemAlanine Aminotransferase (ALT/SGPT)2018-09-13 12:25:00* Test Item Value Reference Range Interpretation Comme nts Alanine Aminotransferase (AL T/SGPT) (test code = 1742-6) 24 0-55 [facility] SystemTotal Atajtvh3013-73-15 12:25:00* Test Item Value Reference Range Interpretation Comme [facility] Total Protein (test code = 2885-2) 7.2 6.5-8.1 [facility] SystemAlbumin2019-08-04 12:25:00* Test Item Value Reference Range Interpretation Comme nts Albumin (test code = 1751-7) 4.2 3.5-5.0 [facility] SystemGlobulin2019-08-04 12:25:00* Test Item Value Reference Range Interpretation Comme [facility] Globulin (test code = 13527-0) 3.0 2.3-3.5 [facility] SystemAlbumin/Globulin Bcsof8534-15-38 12:25:00* Test Item Value Reference Range Interpretation Comme [facility] Albumin/Globulin Ratio (test code = 1759-0) 1.4 0.8-2.0 [facility] SystemAlkaline Qsbrafvnqej8884-56-66 12:25:00* Test Item Value Reference Range Interpretation Comme nts Alkaline Phosphatase (test c ode = 6768-6) 81 40-150 [facility] SystemAmylase Grqkg3540-85-57 12:25:00* Test Item Value Reference Range Interpretation Comme nts Amylase Level (test code = 1798-8) 84 25-125 [facility] SystemLipase2019-08-04 12:25:00* Test Item Value Reference Range Interpretation Comme nts Lipase (test code = 3040-3) 18 8-78 [facility] SystemUrine Pwgug9008-38-11 11:53:00* Test Item Value Reference Range Interpretation Comme nts Urine Color (test code = 5778-6) YELLOW YELLOW [facility] SystemUrine Fevujox5227-97-80 11:53:00* Test Item Value Reference Range Interpretation Comme nts Urine Clarity (test code = 53388-9) SL CLOUDY CLEAR [facility] SystemUrine Specific Khfpfxe4063-71-67 11:53:00* Test Item Value Reference Range Interpretation Comme nts Urine Specific [place] (test code = 5811-5) 1.015 1.010-1.025 [facility] SystemUrine fM2568-37-98 11:53:00* Test Item Value Reference Range Interpretation Comme nts Urine pH (test code = 46776-6) 7 5-7 [facility] SystemU[facility] Leukocyte Dxxwtgbo3400-38-45 11:53:00* Test Item Value Reference Range Interpretation Comme nts Urine Leukocyte Esterase (te st code = 5799-2) NEGATIVE NEGATIVE [facility] SystemUrine Qbniipb2546-40-30 11:53:00* Test Item Value Reference Range Interpretation Comme nts Urine Nitrite (test code = 28563-3) NEGATIVE NEGATIVE [facility] SystemUrine Jtqmhfl7972-19-74 11:53:00* Test Item Value Reference Range Interpretation Comme nts Urine Protein (test code = 5804-0) 2+ NEGATIVE H [facility] SystemUrine Glucose (UA)2018-09-13 11:53:00* Test Item Value Reference Range Interpretation Comme nts Urine Glucose (UA) (test cod e = 2349-9) NEGATIVE NEGATIVE [facility] SystemUrine Sduvaph2728-36-94 11:53:00* Test Item Value Reference Range Interpretation Comme nts Urine Ketones (test code = 77391-9) NEGATIVE NEGATIVE [facility] SystemUrine Xujsrlcvzwbc8559-41-71 11:53:00* Test Item Value Reference Range Interpretation Comme nts Urine Urobilinogen (test cod e = 61960-1) 0.2 0.2-1 [facility] SystemUrine Cktpgivmj7938-37-87 11:53:00* Test Item Value Reference Range Interpretation Comme nts Urine Bilirubin (test code = 1978-6) NEGATIVE NEGATIVE [facility] SystemUrine Fgzxq6541-75-69 11:53:00* Test Item Value Reference Range Interpretation Comme nts Urine Blood (test code = 45397-8) TRACE NEGATIVE H [facility] SystemUrine FBP3914-83-14 11:53:00* Test Item Value Reference Range Interpretation Comme nts Urine WBC (test code = 5821-4) 11-20 0-5 H [facility] SystemUrine CCS2010-17-71 11:53:00* Test Item Value Reference Range Interpretation Comme nts Urine RBC (test code = 10354-5) 11-20 0-5 H [facility] SystemUrine Mcjewjjn0755-52-75 11:53:00* Test Item Value Reference Range Interpretation Comme nts Urine Bacteria (test code = 59080-1) FEW NONE [facility] SystemUrine Epithelial Vkshq9609-03-02 11:53:00* Test Item Value Reference Range Interpretation Comme nts Urine Epithelial Cells (test code = 02862-5) FEW NONE [facility] SystemU[facility] Asor7772-77-50 11:53:00* Test Item Value Reference Range Interpretation Comme nts Urine Test (test c ode = 2106-3) NEGATIVE NEGATIVE [facility] SystemPlatelet Uehtv9445-09-09 11:45:00* Test Item Value Reference Range Interpretation Comme nts Platelet Count (test code = 777-3) 318 140-360 [facility] SystemNeutrophils (%) (Auto)2018-09-13 11:45:00* Test Item Value Reference Range Interpretation Comme nts Neutrophils (%) (Auto) (test code = 79978-9) 81.5 38.7-80.0 H [facility] SystemLymphocytes (%) (Auto)2018-09-13 11:45:00* Test Item Value Reference Range Interpretation Comme nts Lymphocytes (%) (Auto) (test code = 736-9) 9.7 18.0-39.1 L [facility] SystemMonocytes (%) (Auto)2018-09-13 11:45:00* Test Item Value Reference Range Interpretation Comme nts Monocytes (%) (Auto) (test c ode = 5905-5) 7.9 4.4-11.3 [facility] SystemEosinophils (%) (Auto)2018-09-13 11:45:00* Test Item Value Reference Range Interpretation Comme nts Eosinophils (%) (Auto) (test code = 713-8) 0.0 0.0-6.0 [facility] SystemBasophils (%) (Auto)2018-09-13 11:45:00* Test Item Value Reference Range Interpretation Comme nts Basophils (%) (Auto) (test c ode = 706-2) 0.3 0.0-1.0 [facility] SystemIM GRANULOCYTES %2018-09-13 11:45:00* Test Item Value Reference Range Interpretation Comme nts IM GRANULOCYTES % (test code = IM GRANULOCYTES %) 0.6 0.0-1.0 [facility] SystemNeutrophils # (Auto)2018-09-13 11:45:00* Test Item Value Reference Range Interpretation Comme nts Neutrophils # (Auto) (test c ode = 751-8) 15.3 2.1-6.9 H [facility] SystemLymphocytes # (Auto)2018-09-13 11:45:00* Test Item Value Reference Range Interpretation Comme nts Lymphocytes # (Auto) (test c ode = 33499-6) 1.8 1.0-3.2 [facility] SystemMonocytes # (Auto)2018-09-13 11:45:00* Test Item Value Reference Range Interpretation Comme nts Monocytes # (Auto) (test code = 742-7) 1.5 0.2-0.8 H [facility] SystemEosinophils # (Auto)2018-09-13 11:45:00* Test Item Value Reference Range Interpretation Comme nts Eosinophils # (Auto) (test c ode = 711-2) 0.0 0.0-0.4 [facility] SystemBasophils # (Auto)2018-09-13 11:45:00* Test Item Value Reference Range Interpretation Comme nts Basophils # (Auto) (test code = 704-7) 0.1 0.0-0.1 [facility] SystemAbsolute Immature Granulocyte (fpqk9955-99-88 11:45:00* Test Item Value Reference Range Interpretation Comme nts Absolute Immature Granulocyt e (auto (test code = Absolute Immature Granulocyte (auto) 0.12 0-0.1 H [facility] SystemWhite Blood Jgwnx4442-01-44 11:45:00* Test Item Value Reference Range Interpretation Comme nts White Blood Count (test code = 6690-2) 18.82 4.8-10.8 H [facility] SystemRed Blood Dcncs7892-41-07 11:45:00* Test Item Value Reference Range Interpretation Comme nts Red Blood Count (test code = 789-8) 5.30 3.6-5.1 H [facility] SystemHemoglobin2019-08-04 11:45:00* Test Item Value Reference Range Interpretation Comme nts Hemoglobin (test code = 99257-8) 16.2 12.0-16.0 H [facility] SystemHematocrit2019-08-04 11:45:00* Test Item Value Reference Range Interpretation Comme nts Hematocrit (test code = 4544-3) 46.1 34.2-44.1 [facility] [id number] 11:45:00* Test Item Value Reference Range Interpretation Comme nts Mean Corpuscular Volume (martha t code = 787-2) 87.0 81-99 [facility] [id number] 11:45:00* Test Item Value Reference Range Interpretation Comme nts Mean Corpuscular Hemoglobin (test code = 785-6) 30.6 28-32 [facility] Corp[facility] Hemoglobin [id number] 11:45:00* Test Item Value Reference Range Interpretation Comme nts Mean Corpuscular Hemoglobin Concent (test code = 786-4) 35.1 31-35 [facility] System[facility] Cell Distribution [id number] 11:45:00* Test Item Value Reference Range Interpretation Comme nts Red Cell Distribution Width (test code = 44302-9) 13.5 11.7-14.4 [facility]"
[2023-04-24 11:11] LABS: Absolute Basophils 0.1 K/uL (0-0.5); Absolute Eosinophils 0.1 K/uL (0-0.5); Absolute Lymphocytes (CBC) 2.2 K/uL (0.7-4.9); Absolute Monocytes 0.6 K/uL (0.1-1.3); Absolute Neutrophil 4.4 K/uL (1.8-8.0); Basophils % 0.9 % (0-1.3); Hematocrit 40.5 % (36.0-45.0); Hemoglobin 13.9 g/dL (12.0-15.0); Lymphocytes % 29.5 % (15.3-44.8); MCH 31.2 pg (27.0-35.0); MCHC 34.3 g/dL (32.0-36.0); MCV 91.1 fL (80-100); MPV 8.3 fL (7.6-11.3); Monocytes % 8.4 % (3.3-12.3); Neutrophils % 60.2 % (41.7-73.7); Platelets 166 thou/uL (152-406); RBC Red Blood Cell Count 4.45 M/uL (3.86-4.86); Red Cell Distribution Width 12.3 % (12.1-15.2)
[2023-04-24 11:32] LABS: Albumin 3.6 g/dL (3.4-5.0); Albumin/Globulin Ratio 1.2 (1.1-1.8); Anion Gap 4.3 mEq/L (5.0-15.0); Bilirubin Direct 0.2 mg/dL (0-0.2); Bilirubin Indirect, Calculated 0.3 mg/dL (0.2-0.8); Bilirubin Total 0.5 mg/dL (0.2-1.0); Magnesium 1.9 mg/dL (1.6-2.4); Potassium 4.3 mEq/L (3.5-5.1); Protein, Total 6.6 g/dL (6.4-8.2); Troponin High Sensitivity 10.5 pg/mL (<58.9)
--- NOTE | 2023-04-24 11:56 | RAD REPORT ---
EXAM DESCRIPTION: CT - CTHCSPWOC - 04/24/2023 11:12 am CLINICAL HISTORY: headache, neck pain, numbness COMPARISON: Head C Spine Mpr Wo Con dated 02/24/2021 TECHNIQUE: Axial thin cut noncontrast CT images of the head were obtained. Axial thin cut noncontrast CT images of the cervical spine were obtained. Multiplanar reformatted images were generated and reviewed. All CT scans are performed using dose optimization technique as appropriate and may include automated exposure control or mA/KV adjustment according to patient size. FINDINGS: CT HEAD WITHOUT CONTRAST: No acute hemorrhage, hydrocephalus or extra-axial collection is identified.No areas of brain edema or midline shift. The paranasal sinuses and mastoids are clear.The calvarium is intact. CT CERVICAL SPINE WITHOUT CONTRAST: No fracture or subluxation.No prevertebral soft tissues swelling is identified. IMPRESSION: No acute traumatic intracranial or cervical spine findings.
--- NOTE | 2023-04-24 12:03 | RAD REPORT ---
[facility] 11[facility]57 [facility] CLINICAL HISTORY: CHEST PAIN COMPARISON: Chest Single View dated 10/23/2022; Chest Single View dated 07/23/2022; Chest Single View dated 11/20/2021 TECHNIQUE: Portable AP view of the chest. FINDINGS: The lungs are clear. Diffuse hyperinflation suggesting COPD. No pneumothorax or effusion. The cardiomediastinal contours are unremarkable. IMPRESSION: No acute cardiopulmonary process.
--- NOTE | 2023-04-24 15:20 | EDPHYS ---
Physician Documentation [facility] Name: Tata Friedman Age: 53 yrs Sex: Female : 1970 Arrival Date: 04/24/2023 Time: 09:58 Bed 20 Private MD: ED Physician Parth Parr HPI: 04/23 16:08 This 53 yrs old Female presents to ER via Ambulatory with complaints of Weakness, rt Blurred Vision. 16:08 Patient presents to the ED with headache, frontal starting yesterday. She reports rt intermittent tingling to her right arm associated with that. Reports nausea without vomiting. Reports blurred vision. Denies other acute complaints at this time, symptoms are moderate severity, aching nature, nonradiating, no other aggravating or elevating factors.. Historical: - Allergies: 10:16 No Known Allergies; iw - PMHx: 10:16 Bipolar disorder; depressive disorder; PTSD; Schizophrenia; former drug addict; iw - PSHx: 10:16 Cholecystectomy; hysterectomy; iw ROS: 16:08 Constitutional: Negative for fever, chills, and weight loss, Cardiovascular: Negative rt for chest pain, palpitations, and edema, Respiratory: Negative for shortness of breath, cough, wheezing, and pleuritic chest pain, Abdomen/GI: Negative for abdominal pain, nausea, vomiting, diarrhea, and constipation, MS/Extremity: Negative for injury and deformity, Skin: Negative for injury, rash, and discoloration, 16:08 Neuro: Positive for headache, tingling, Exam: 16:08 Constitutional: This is a well developed, well nourished patient who is awake, alert, rt and in no acute distress. Head/Face: Normocephalic, atraumatic. Chest/axilla: Normal chest wall appearance and motion. Nontender with no deformity. No lesions are appreciated. Cardiovascular: Regular rate and rhythm with a normal S1 and S2. No gallops, murmurs, or rubs. Normal PMI, no JVD. No pulse deficits. Respiratory: Lungs have equal breath sounds bilaterally, clear to auscultation and percussion. No rales, rhonchi or wheezes noted. No increased work of breathing, no retractions or nasal flaring. Abdomen/GI: Soft, non-tender, with normal bowel sounds. No distension or tympany. No guarding or rebound. No evidence of tenderness throughout. Skin: Warm, dry with normal turgor. Normal color with no rashes, no lesions, and no evidence of cellulitis. MS/ Extremity: Pulses equal, no cyanosis. Neurovascular intact. Full, normal range of motion. 16:08 Eyes: Extraocular muscles intact, no visual field deficits. 16:08 ECG was reviewed by the Attending Physician. 16:08 Neuro: Cranial nerves II through XII intact, slight numbness on the left arm, sensation otherwise intact, strength intact in upper and lower extremities, speech normal, Vital Signs: 10:25 BP 90 / 58; Pulse 76; Resp 16; Temp 98.3; Pulse Ox 96% on R/A; Weight 46.72 kg; Height iw 5 ft. 6 in. ; Pain 8/10; 14:00 BP 116 / 78; Pulse 48; Resp 16; Pulse Ox 96% on R/A; Pain 9/10; tl4 10:25 Body Mass Index 16.62 (46.72 kg, 167.64 cm) iw 10:25 Pain Scale: Adult iw 14:00 Pain Scale: Adult tl4 MDM: 10:43 Patient medically screened. rt 16:10 Data reviewed: vital signs, nurses notes, lab test result(s), EKG, radiologic studies. rt Consideration of Admission/Observation Escalation of care including admission/observation considered. Patient does have arm tingling, however, I have a low suspicion for CVA, TIA, symptoms are significantly improving with headache treatment, suspected complex migraine. Workup is benign. Patient is stable for outpatient care, precautions discussed. I considered the following discharge prescriptions or medication management in the emergency department Medications were administered in the Emergency Department. See MAR. Independent interpretation of the following test(s) in the Emergency Department CT Scan: My interpretation is No intracranial hemorrhage seen on interpretation of CT scan images. Counseling: I had a detailed discussion with the patient and/or guardian regarding the historical points, exam findings, and any diagnostic results supporting the discharge/admit diagnosis, lab results, radiology results, the need for outpatient follow up, to return to the emergency department if symptoms worsen or persist or if there are any questions or concerns that arise at home. Response to treatment: the patient's symptoms have markedly improved after treatment. 04/23 10:49 Order name: Basic Metabolic Panel; Complete Time: 11:53 rt 04/23 10:49 Order name: CBC with Diff; Complete Time: 11:53 rt 04/23 10:49 Order name: LFT's; Complete Time: 11:53 rt 04/23 10:49 Order name: Magnesium; Complete Time: 11:53 rt 04/23 10:49 Order name: Troponin HS; Complete Time: 11:53 rt 04/23 10:49 Order name: XRAY Chest (1 view); Complete Time: 12:10 rt 04/23 10:49 Order name: CT Head C Spine; Complete Time: 12:10 rt 04/23 10:49 Order name: EKG; Complete Time: 10:50 rt 04/23 10:49 Order name: Cardiac monitoring; Complete Time: 13:29 rt 04/23 10:49 Order name: EKG - Nurse/Tech; Complete Time: 14:37 rt 04/23 10:49 Order name: IV Saline Lock; Complete Time: 11:51 rt 04/23 10:49 Order name: Labs collected and sent; Complete Time: 11:51 rt 04/23 10:49 Order name: O2 Per Protocol; Complete Time: 13:29 rt 04/23 10:49 Order name: O2 Sat Monitoring; Complete Time: 13:29 rt EC:08 Rate is 48 beats/min. Rhythm is regular, 1st Degree Block with No ectopy. QRS [place] is rt Normal. QRS interval is normal. QT interval is normal. No Q waves. T waves are Normal. No ST changes noted. Administered Medications: 13:55 Drug: diphenhydrAMINE IVP 25 mg IVP once Route: IVP; Site: right forearm; tl4 14:36 Follow up: Response: No adverse reaction; Pain is decreased tl4 13:55 Drug: Ketorolac IVP 15 mg IVP once Route: IVP; Site: right forearm; tl4 14:36 Follow up: Response: No adverse reaction; Pain is decreased tl4 13:56 Drug: metoCLOPramide IVP 10 mg IVP once; over 1 to 2 minutes Route: IVP; Site: right tl4 forearm; 14:36 Follow up: Response: No adverse reaction; Pain is decreased tl4 13:56 Drug: Magnesium Sulfate IVPB 2 grams IVPB once over 2 hrs Route: IVPB; Infused Over: 2 tl4 hrs; Site: right forearm; Delivery: Primary tubing; 15:28 Follow up: Response: No adverse reaction; IV Status: Completed infusion; IV Intake: [id number] Disposition Summary: 04/24/23 15:20 Discharge Ordered Notes: Location: Home rt Problem: new rt Symptoms: have improved rt Condition: Stable rt Diagnosis - Complex migraine rt Followup: rt - With: Private Physician - When: 2 - 3 days - Reason: Followup: rt - With: Emergency Department - When: As needed - Reason: Worsening of condition Discharge Instructions: - Discharge Summary Sheet rt - Migraine Headache rt Forms: - Medication Reconciliation Form rt - Thank You Letter rt - Antibiotic Education rt - Prescription Opioid Use rt - Patient Portal Instructions rt - Leadership Thank You Letter rt Signatures: Dispatcher [employer] EDBeata Hanna RN RN iw Parth Parr MD MD rt See Willson RN RN tl4 Corrections: (The following items were deleted from the chart) 16:10 16:08 Rate is 63 beats/min. Rhythm is regular, Normal Sinus Rhythm with No ectopy. Left rt axis deviation noted. NH interval is normal. QRS interval is normal. QT interval is normal. No Q waves. Clinical impression: NSR w/ Non-specific ST/T Changes. rt
--- NOTE | 2023-04-24 15:20 | ER ---
Nurse's Notes [facility] Name: Tata Friedman Age: 53 yrs Sex: Female : 1970 Arrival Date: 04/24/2023 Time: 09:58 Bed 20 Private MD: Diagnosis: Complex migraine Presentation: 04/23 10:15 Chief complaint: Patient states: headache, left arm tingling off and on since yesterday iw , pain in left shoulder, symptoms started yesterday. Coronavirus screen: At this time, the client does not indicate any symptoms associated with coronavirus-19. Ebola Screen: Patient negative for fever greater than or equal to 101.5 degrees Fahrenheit, and additional compatible Ebola Virus Disease symptoms Patient denies exposure to infectious person. Patient denies travel to an Ebola-affected area in the 21 days before illness onset. No symptoms or risks identified at this time. Initial Sepsis Screen: Does the patient meet any 2 criteria? No. Patient's initial sepsis screen is negative. Does the patient have a suspected source of infection? No. Patient's initial sepsis screen is negative. Risk Assessment: Do you want to hurt yourself or someone else? Patient reports no desire to harm self or others. Onset of symptoms was April 23, 2023. 10:15 Method Of Arrival: Ambulatory iw 10:15 Acuity: CAROLINE 3 iw Historical: - Allergies: 10:16 No Known Allergies; iw - PMHx: 10:16 Bipolar disorder; depressive disorder; PTSD; Schizophrenia; former drug addict; iw - PSHx: 10:16 Cholecystectomy; hysterectomy; iw Screenin:09 [facility] ED Fall Risk Assessment (Adult) History of falling in the last 3 months, tl4 including since admission No falls in past 3 months (0 pts) Confusion or Disorientation No (0 pts) Intoxicated or Sedated No (0 pts) Impaired Gait No (0 pts) Mobility Assist Device Used No (0 pt) Altered Elimination No (0 pt) Score/Fall Risk Level 0 - 2 = Low Risk Oriented to surroundings, Maintained a safe environment, Educated pt \T\ family on fall prevention, incl call for assistance when getting out of bed, Assessed \T\ reinforced patient's understanding of fall precautions, Hourly rounding (assess needs \T\ fall precautionary measures) done, Used ambulatory aids as needed (educated on \T\ assisted with), Used gait belt as appropriate. Abuse screen: Denies threats or abuse. Denies injuries from another. Nutritional screening: No deficits noted. Tuberculosis screening: No symptoms or risk factors identified. Assessment: 13:57 General: Appears uncomfortable, Behavior is cooperative. Pain: Complains of pain in tl4 head. Neuro: Reports. Neuro: Reports blurred vision since yesterday headache numbness in right hand and left hand weakness. Cardiovascular: Denies. Cardiovascular: Reports chest pain, Denies palpitations, syncope. Respiratory: Breath sounds are clear bilaterally. Denies cough, shortness of breath labored breathing. GI: No deficits noted. No signs and/or symptoms were reported involving the gastrointestinal system. : No deficits noted. No signs and/or symptoms were reported regarding the genitourinary system. EENT: No deficits noted. No signs and/or symptoms were reported regarding the EENT system. Derm: No deficits noted. No signs and/or symptoms reported regarding the dermatologic system. Vital Signs: 10:25 BP 90 / 58; Pulse 76; Resp 16; Temp 98.3; Pulse Ox 96% on R/A; Weight 46.72 kg; Height iw 5 ft. 6 in. ; Pain 8/10; 14:00 BP 116 / 78; Pulse 48; Resp 16; Pulse Ox 96% on R/A; Pain 9/10; tl4 10:25 Body Mass Index 16.62 (46.72 kg, 167.64 cm) iw 10:25 Pain Scale: Adult iw 14:00 Pain Scale: Adult tl4 ED Course: 09:59 Patient arrived in ED. rg4 10:02 Parth Parr MD is Attending Physician. rt 10:16 Triage completed. iw 10:17 Arm band placed on. iw 11:[address] via wheelchair. iw 11:11 CT Head C Spine In Process Unspecified. EDMS 11:59 XRAY Chest (1 view) In Process Unspecified. EDMS 12:59 Patient placed in an exam room, on a stretcher. ll1 13:07 See Willson, CHESTER is Primary Nurse. tl4 13:55 Inserted saline lock: 22 gauge in right forearm, using aseptic technique. tl4 14:10 Patient has correct armband on for positive identification. Bed in low position. Call tl4 light in reach. Side rails up X2. Provided Education on: ed process. Client placed on continuous cardiac and pulse oximetry monitoring. NIBP monitoring applied. cardiac monitor technician on. Door closed. Noise minimized. Lights dimmed. Moved to private room. Warm blanket given. 14:10 No provider procedures requiring assistance completed. tl4 Administered Medications: 13:55 Drug: diphenhydrAMINE IVP 25 mg IVP once Route: IVP; Site: right forearm; tl4 14:36 Follow up: Response: No adverse reaction; Pain is decreased tl4 13:55 Drug: Ketorolac IVP 15 mg IVP once Route: IVP; Site: right forearm; tl4 14:36 Follow up: Response: No adverse reaction; Pain is decreased tl4 13:56 Drug: metoCLOPramide IVP 10 mg IVP once; over 1 to 2 minutes Route: IVP; Site: right tl4 forearm; 14:36 Follow up: Response: No adverse reaction; Pain is decreased tl4 13:56 Drug: Magnesium Sulfate IVPB 2 grams IVPB once over 2 hrs Route: IVPB; Infused Over: 2 tl4 hrs; Site: right forearm; Delivery: Primary tubing; 15:28 Follow up: Response: No adverse reaction; IV Status: Completed infusion; IV Intake: [id number] Medication: 14:10 VIS not applicable for this client. tl4 Intake: 15:28 IV: 50ml; Total: 50ml. tl4 Outcome: 15:20 Discharge ordered by MD. rt 16:15 Discharged to home ambulatory, with friend, tl4 16:15 Condition: stable 16:15 Discharge instructions given to patient, Instructed on discharge instructions, follow up and referral plans. medication usage, Demonstrated understanding of instructions, follow-up care, medications, 16:16 Patient left the ED. tl4 Signatures: Dispatcher [employer] EDMS Beata Perez RN RN iw Garcia, Rubi rg4 Rory Downs RN RN ll1 Parth Parr MD MD rt See Willson RN RN tl4
[2023-04-24 17:30] VITALS: BP 116/78; TEMP 98.3; O2SAT 96
--- NOTE | 2023-04-25 17:24 | EKG ---
Test Date: 2023-04-24 Test Time: 13:32:50 [employer] President: JANICE MEASUREMENT RESULTS: Intervals: Rate: 48 ND: 264 QRSD: 110 QT: 494 QTc: 441 [place]: P: 51 ND: 264 QRS: 73 T: 65 INTERPRETIVE STATEMENTS: Marked sinus bradycardia with 1st degree AV block Septal infarct, age undetermined Abnormal ECG Compared to ECG 07/23/2022 10:27:35 First degree AV block now present Sinus rhythm no longer present Myocardial infarct finding still present Electronically Signed On 04-25-23 17:20:38 CDT by Christopher Hawk
== END ==
LOC: ER 09:58
DX: G43.809 Other migraine, not intractable, without status migrainosus (principal); F20.9 Schizophrenia, unspecified
CPT/HCPCS: 96365; 93005; 85025; 80048; 36415; 83735; 80076; 84484; 70450; 72125; 71045; 96375; 99285; 96366; J3475; J2765; J1200

== ENCOUNTER 2023-08-13 08:55 | Emergency (ER) | payer OTHER ==
--- OUTSIDE RECORDS SUMMARY | 2023-08-13 09:00 | XMS REPORT | Continuity of Care Document ---
Author Name Unknown Address [address] [facility] [address] [place] [address] [facility] Address [address] [facility] [address] [place] [address] Care Team Providers Care Sanitor Name Role Phone NO, PCP Primary Care Physician Unavailab Santa Coreas Attending Clinician Unavailable GIOVANNI DACOSTA Attending Clinician Unavailable JULITO MOREIRA Attending Clinician Unavail able JULITO MOREIRA Attending Clinician Unavail Julito Doll MD Attending Clinician Adelia Randolph MD Attending Clinician ADELIA RANDOLPH Attending Clinician Unavailable Fabián Cardiology - Clear Attending Clinician Nara vailable Doctor Unassigned, [facility] Attending Clinician U navailable Bushra Vera Attending Clinician BUSHRA MARS Attending Clinician UnavailYasmin [place] MD Attending Clinician [phone] YASMIN BETTS Attending Clinician Unavailable HERNESTO PINEDA Attending Clinician Unavailable JULITO MOREIRA Admitting Clinician Unavail able ADELIA RANDOLPH Admitting Clinician Unavailable Payers Payer Name Policy Type Policy Number Effective Date Expirati on Date Source [employer] [id number] 2023 00:00:00 [employer] [id number] 2022 00:00:00 Problems Condition Name Condition Details Condition Category Status Onset Date Resolution Date Last Treatment Date Treating Clinician Comments Source [id number] PAT (generaliz ed anxiety disorder) Problem [facility] [id number] Bipolar 2 disorder Problem [facility] [id number] Mixed hyperlipid emia Problem [facility] [id number] Essential (primary) hypertensi on Problem [facility] [id number] Schizophre tim, unspecifie d type Problem [facility] [id number] Smokes 1/2 pack per day Problem [facility] [id number] Hx of myocardial infarction Problem [facility] No known active problems No known active problems Disease [facility] Allergies, Adverse Reactions, Alerts Allergy Name Allergy Type Status Severity Reaction(s) Onset Date Inactive Date Treating Clinician Comments Source Ibuprofe n Propensi ty to adverse reaction s Active Rash 03-03 00:00: 00 [facility] IBUPROFE N DRUG INGREDI Active Rash 03-03 00:00: 00 [facility] NO KNOWN ALLERGIE S Drug Class Active [facility] Social History Social Habit Start Date Stop Date Quantity Comments Source Sex Assigned At [facility] Exposure to SARS-CoV-2 (event) Not sure [facility] History of tobacco use Cigarette Smoker [facility] Alcoholic beverage intake 2023-05-12 00:00:00 2023-05-12 00:00:00 Ex-drinker (finding) [facility] Alcohol intake 2023-05-12 00:00:00 2023-05-12 00:00:00 Ex-drinker (finding) [facility] Cigarettes smoked current (pack per day) - Reported 2023-05-05 00:00:00 2023-05-05 00:00:00 [facility] Cigarette pack-years 2023-05-05 00:00:00 2023-05-05 00:00:00 [facility] Tobacco use and exposure 2023-05-05 00:00:00 2023-05-05 00:00:00 Former smokeless tobacco user [facility] History of Social function 2023-05-05 00:00:00 2023-05-05 00:00:00 [facility] Smoking Status Start Date Stop Date Source Smokes tobacco daily 2023-05-05 00:00:00 [facility] Medications Ordered Medication Name Filled Medication Name Start Date Stop Date Current Medication? Ordering Clinician Indication Dosage Frequency Signature (SIG) Comments Components Source buprenorphi ne-naloxone 8-2 mg sublingual film 05-11 10:16: [address] 2 Film under the tongue in the morning. [facility] cloNIDine 0.2 mg tablet 05-11 10:16: 00 Yes .2mg Take 1 tablet by mouth in the morning and 1 tablet in the evening. [facility] QUEtiapine 50 mg tablet 05-11 10:16: 00 Yes 50mg Take 1 tablet by mouth in the morning. [facility] mirtazapine 15 mg tablet 05-11 10:16: 00 Yes 15mg Take 1 tablet by mouth at bedtime. [facility] lithium carbonate 300 mg tablet 05-11 10:16: 00 Yes 900mg Take 3 tablets by mouth in the morning. [facility] venlafaxine XR 37.5 mg 24 hr capsule 05-11 10:16: 00 Yes 37.5mg Take 1 capsule by mouth daily with breakfast. [facility] LORazepam 0.5 mg tablet 05-11 10:16: 00 Yes .5mg Take 1 tablet by mouth in the morning and 1 tablet in the evening. [facility] haloperidol 0.5 mg tablet 05-11 10:16: 00 Yes .5mg Take 1 tablet by mouth in the morning. [facility] rOPINIRole HCl 0.25 MG rOPINIRole HCl 0.25 MG 03-13 00:00: 00 No QD rOPINIRole HCl 0.25 MG rOPINIRole HCl 0.25 MG rOPINIRole HCl 0.25 MG 03-13 00:00: 00 No QD rOPINIRole HCl 0.25 MG KlonoPIN 1 MG KlonoPIN 1 MG 2022-02 00:00: 00 No 1{table t} KlonoPIN 1 MG KlonoPIN 1 MG KlonoPIN 1 MG 2022-02 00:00: 00 No 1{table t} KlonoPIN 1 MG KlonoPIN 1 MG KlonoPIN 1 MG 2022-02 00:00: 00 No 1{table t} KlonoPIN 1 MG benzonatate 100 mg capsule 03-03 00:00: 00 Yes [id number] 100mg Take 1 capsule by mouth 3 (three) times daily as needed for Cough. [facility] albuterol 90 mcg/actuati on inhaler 03-03 00:00: 00 Yes [id number] 2{puff} Inhale 2 Puffs every 4 (four) hours as needed for Wheezing or Shortness of Breath. [facility] diphenhydrA MINE (BENADRYL) injection 25 mg 09-10 17:45: 00 09-10 16:36 :00 No 25mg 25 mg, Slow IV Push, ONCE, 1 dose, 09/11/19 at 1245, STAT [facility] haloperidol lactate (HALDOL) injection 2.5 mg 09-10 17:45: 00 09-10 16:41 :00 No 2.5mg 2.5 mg, Intravenou s, ONCE, 1 dose, 09/11/19 at 1245, STAT [facility] famotidine (PEPCID (PF)) injection 20 mg 09-10 16:45: 00 09-10 16:37 :00 No 20mg 20 mg, IV Piggyback, ONCE, 1 dose, 09/11/19 at 1145, GAGE [facility] NaCl 0.9% (NS) bolus infusion 1,000 mL 09-10 16:45: 00 09-10 18:00 :00 No 1000mL at 999 mL/hr, 1,000 mL, IV Infusion, ONCE, 1 dose, 09/11/19 at 1145, GAGE [facility] buprenorphi ne-naloxone 8-2 mg sublingual film 09-10 16:34: [address] 16 mg under the tongue daily. [facility] cloNIDine 0.2 mg tablet 09-10 16:34: 41 Yes .2mg Take 0.2 mg by mouth 2 (two) times daily. [facility] QUEtiapine 50 mg tablet 09-10 16:34: 41 Yes 50mg Take 50 mg by mouth daily. [facility] mirtazapine 15 mg tablet 09-10 16:34: 41 Yes 15mg Take 15 mg by mouth at bedtime. [facility] lithium carbonate 300 mg tablet 09-10 16:34: 41 Yes 900mg Take 900 mg by mouth daily. [facility] venlafaxine XR 37.5 mg 24 hr capsule 09-10 16:34: 41 Yes 37.5mg Take 37.5 mg by mouth daily with breakfast. [facility] LORazepam 0.5 mg tablet 09-10 16:34: 41 Yes .5mg Take 0.5 mg by mouth 2 (two) times daily. [facility] haloperidol 0.5 mg tablet 09-10 16:34: 41 Yes .5mg Take 0.5 mg by mouth daily. [facility] venlafaxine XR 37.5 mg 24 hr capsule 09-10 11:34: 41 Yes 37.5mg Take 37.5 mg by mouth daily with breakfast. [facility] LORazepam 0.5 mg tablet 09-10 11:34: 41 Yes .5mg Take 0.5 mg by mouth 2 (two) times daily. [facility] haloperidol 0.5 mg tablet 09-10 11:34: 41 Yes .5mg Take 0.5 mg by mouth daily. [facility] buprenorphi ne-naloxone 8-2 mg sublingual film 09-10 11:34: [address] 16 mg under the tongue daily. [facility] cloNIDine 0.2 mg tablet 09-10 11:34: 41 Yes .2mg Take 0.2 mg by mouth 2 (two) times daily. [facility] QUEtiapine 50 mg tablet 09-10 11:34: 41 Yes 50mg Take 50 mg by mouth daily. [facility] mirtazapine 15 mg tablet 09-10 11:34: 41 Yes 15mg Take 15 mg by mouth at bedtime. [facility] lithium carbonate 300 mg tablet 09-10 11:34: 41 Yes 900mg Take 900 mg by mouth daily. [facility] famotidine 20 mg tablet 09-10 00:00: 00 Yes [id number] 20mg Take 1 tablet by mouth 2 (two) times daily. [facility] proMETHazin e 25 mg tablet 09-10 00:00: 00 Yes [id number] 25mg Take 1 tablet by mouth every 6 (six) hours as needed for Nausea and Vomiting (N/V). [facility] Cefdinir (Omnicef) 300 Mg Capsule Cefdinir (Omnicef) 300 Mg Capsule 09-13 00:00: 00 Yes Grant Altman [employer] 300 Twice A Day [facility] Ondansetron Hcl (Zofran*) 4 Mg Tablet Ondansetron Hcl (Zofran*) 4 Mg Tablet 09-13 00:00: 00 Yes Grant Martinezdez [employer] 4 Every 6 Hours as needed for Nausea [facility] Benztropine Mesylate 2 Mg Tablet Benztropine Mesylate 2 Mg Tablet Yes 1 Twice A Day [facility] Buprenorphi ne Hcl/Naloxon e Hcl (Suboxone 8 Mg-2 Mg Sl Film) 1 Each Film Buprenorphi ne Hcl/Naloxon e Hcl (Suboxone 8 Mg-2 Mg Sl Film) 1 Each Film Yes 1 Daily [facility] Clonidine Hcl 0.1 Mg Tablet Clonidine Hcl 0.1 Mg Tablet Yes 1 Twice A Day [facility] [place] Carbonate 450 Mg Tablet.er [place] Carbonate 450 Mg Tablet.er Yes 1 Twice A Day [facility] Mirtazapine (Remeron) 15 Mg Tablet Mirtazapine (Remeron) 15 Mg Tablet Yes 1 Bedtime [facility] Oxcarbazepi ne (Trileptal) 300 Mg Tablet Oxcarbazepi ne (Trileptal) 300 Mg Tablet Yes 1 Daily [facility] Quetiapine Fumarate (Seroquel) 25 Mg Tablet Quetiapine Fumarate (Seroquel) 25 Mg Tablet Yes 25 Twice A Day [facility] cloNIDine HCl 0.3 MG cloNIDine HCl 0.3 [...] MG No 1{table t} KlonoPIN 1 MG rOPINIRole HCl 0.25 MG rOPINIRole HCl 0.25 MG No rOPINIRole HCl 0.25 MG SEROquel 25 MG SEROquel 25 MG No 1{table t_at_be dtime} QD SEROquel 25 MG Suboxone 8-2 MG Suboxone 8-2 MG No BID Suboxone 8-2 MG cloNIDine HCl 0.3 MG cloNIDine HCl [...] (IIV4) - SDS - 0.5mL Unknown Completed [facility] Fluarix (IIV4) - SDS - 0.5mL Fluarix (IIV4) - SDS - 0.5mL Unknown Completed [facility] Fluarix (IIV4) - SDS - 0.5mL Fluarix (IIV4) - SDS - 0.5mL Unknown Completed [facility] Fluarix (IIV4) - SDS - 0.5mL Fluarix (IIV4) - SDS - 0.5mL Unknown Completed [facility] Fluarix (IIV4) - SDS - 0.5mL Fluarix (IIV4) - SDS - 0.5mL Unknown Completed [facility] Fluarix (IIV4) - SDS - 0.5mL Fluarix (IIV4) - SDS - 0.5mL Unknown Completed [facility] Vital Signs Vital Name Observation Time Observation Value Comments Darian vargas Systolic blood pressure 2023-05-12 15:36:00 150 mm[Hg] [facility] Diastolic blood pressure 2023-05-12 15:36:00 81 mm[Hg] [facility] Heart rate 2023-05-12 15:36:00 58 /min [facility] Oxygen saturation in Arterial blood by Pulse oximetry 2023-05-12 15:36:00 98 /min [facility] hospital Respiratory rate 2023-05-12 15:33:00 18 /min [facility] Body height 2023-05-12 15:33:00 167.6 cm [facility] Body weight 2023-05-12 15:33:00 49.215 kg [facility] BMI 2023-05-12 15:33:00 17.51 kg/m2 [facility] oximetry 2023-03-13 09:00:00 99 % Commo n [facility] respiratory rate 2023-03-13 09:00:00 16 /min [facility] blood pressure systolic 2023-03-13 09:00:00 112 mm[Hg] [facility] blood pressure diastolic 2023-03-13 09:00:00 80 mm[Hg] [facility] height 2023-03-13 09:00:00 65 [in_i] Commo n [facility] weight 2023-03-13 09:00:00 105 [lb_av] Comm on [facility] temperature 2023-03-13 09:00:00 97.2 [degF] Com [facility] bmi 2023-03-13 09:00:00 17.47 kg/m2 Comm on [facility] height 2023-02-13 09:00:00 65.5 [in_i] Comm on [facility] weight 2023-02-13 09:00:00 109 [lb_av] Comm on [facility] temperature 2023-02-13 09:00:00 97.4 [degF] Com [facility] bmi 2023-02-13 09:00:00 17.86 kg/m2 Comm on [facility] oximetry 2023-02-13 09:00:00 96 % Commo n [facility] respiratory rate 2023-02-13 09:00:00 17 /min [facility] blood pressure systolic 2023-02-13 09:00:00 140 mm[Hg] [facility] blood pressure diastolic 2023-02-13 09:00:00 80 mm[Hg] [facility] height 2023-01-09 09:20:00 65.5 [in_i] Comm on [facility] weight 2023-01-09 09:20:00 104 [lb_av] Comm on [facility] temperature 2023-01-09 09:20:00 97.4 [degF] Com mon [facility] bmi 2023-01-09 09:20:00 17.04 kg/m2 Comm on [facility] oximetry 2023-01-09 09:20:00 98 % Commo n [facility] respiratory rate 2023-01-09 09:20:00 17 /min [facility] blood pressure systolic 2023-01-09 09:20:00 144 mm[Hg] [facility] blood pressure diastolic 2023-01-09 09:20:00 80 mm[Hg] [facility] Systolic blood pressure 2020-03-03 18:05:00 130 mm[Hg] [facility] acute hospital Diastolic blood pressure 2020-03-03 18:05:00 89 mm[Hg] [facility] hospital Heart rate 2020-03-03 18:05:00 99 /min [facility] Respiratory rate 2020-03-03 18:05:00 17 /min [facility] Oxygen saturation in Arterial blood by Pulse oximetry 2020-03-03 18:05:00 99 /min [facility] Body temperature 2020-03-03 15:55:00 37.06 Leida [facility] Body weight 2020-03-03 15:53:00 54.432 kg [facility] Systolic blood pressure 2019-09-11 17:07:31 137 mm[Hg] [facility] acute hospital Diastolic blood pressure 2019-09-11 17:07:31 91 mm[Hg] [facility] Heart rate 2019-09-11 17:07:31 98 /min [facility] Body temperature 2019-09-11 17:07:31 37.17 Leida [facility] Respiratory rate 2019-09-11 17:07:31 22 /min [facility] Oxygen saturation in Arterial blood by Pulse oximetry 2019-09-11 17:07:31 98 /min [facility] Body weight 2019-09-11 16:34:00 50 kg [facility] Procedures Procedure Date / Time Performed Performing Clinician Source MR CERVICAL SPINE WO CONTRAST 2023-07-24 16:00:43 Julito Moreira [facility] TRANSTHORACIC ECHO (TTE) COMPLETE 2023-07-16 18:54:13 Adelia Randolph [facility] REFERRAL- REQUEST/RESPONSE 2023-04-17 06:01:00 Doctor Unassigned, [facility] REFERRAL- REQUEST/RESPONSE 2023-01-09 06:01:00 Doctor Unassigned, [facility] XR CHEST 2 VW 2020-03-03 16:39:10 Bushra Mars [facility] POCT TEST 2020-03-03 16:16:00 Catarino Mars [facility] COVID-19 (ID NOW RAPID TESTING) 2020-03-03 16:16:00 Bushra Mars [facility] CBC WITH DIFF 2019-09-11 17:23:00 Yasmin Betts [facility] TROPONIN I 2019-09-11 17:01:00 Yasmin Betts [facility] XR ABDOMEN ACUTE SERIES 2019-09-11 16:59:22 Marta Betts [facility] EKG-12 LEAD 2019-09-11 16:49:04 Yasmin Betts [facility] LIPASE 2019-09-11 16:42:00 Yasmin Betts [facility] TEST, SERUM 2019-09-11 16:42:00 Yasmin Betts [facility] HEPATIC FUNCTION PANEL ([id number]) (ALB,T.PRO,BILI T,BU/BC,ALT,AST,ALK PHOS) 2019-09-11 16:42:00 Yasmin Betts [facility] BASIC METABOLIC PANEL (NA, K, CL, CO2, GLUCOSE, BUN, CREATININE, CA) 2019-09-11 16:42:00 Yasmin Betts [facility] LITHIUM 2019-09-11 16:42:00 Yasmin Betts [facility] Computed tomography of abdomen and pelvis with contrast 2018-09-13 00:00:00 GRANT ALTMAN [facility] Encounters Start Date/Time End Date/Time Encounter Type Admission Type Attending Clinicians Care Facility Care Department Encounter ID Source 2023-04-07 11:32:01 Outpatient Santa Hoffman [facility] [id number] [facility] 2023-01-09 08:39:00 Outpatient Santa Hoffman [facility] [id number] [facility] 2023-08-04 13:40:00 2023-08-04 13:40:00 Outpatient GIOVANNI LAST [facility] [id number] [facility] 2023-07-24 09:40:57 2023-07-24 23:59:00 Outpatient JULITO BARRAZA HOWARD [facility] [id number] [facility] 2023-07-24 09:40:57 2023-07-24 23:59:00 Hospital Encounter Julito Moreira [facility] 1..840.114 350.1.13.10 4.2.7.2.686 [id number] [facility] 2023-07-22 00:00:00 2023-07-23 08:31:05 Telephone Adelia Randolph [facility] 1..840.114 350.1.13.10 4.2.7.2.686 [id number] [facility] 2023-07-16 12:32:57 2023-07-16 23:59:00 [facility] [id number] [facility] 2023-07-16 12:32:57 2023-07-16 23:59:00 Hospital Encounter Agustín [facility] BU[facility] [id number] 350.1.13.10 4.2.7.2.686 [id number] [facility] 2023-07-11 00:00:00 2023-07-11 00:00:00 Outpatient JULITO BARRAZA HOWARD [facility] [id number] [facility] 2023-07-01 10:00:00 2023-07-01 10:00:00 Outpatient GIOVANNI LAST [facility] [id number] [facility] 2023-07-01 08:00:00 2023-07-01 08:00:00 [facility] [id number] [facility] 2023-06-05 00:00:00 2023-06-05 00:00:00 Outpatient JULITO BARRAZA HOWARD [facility] [id number] [facility] 2023-05-29 10:00:00 2023-05-29 10:00:00 Outpatient R AGUSTÍN [facility] [id number] [facility] 2023-05-12 10:30:00 2023-05-12 11:45:24 Outpatient R AGUSTÍN [facility] [id number] [facility] 2023-05-12 10:30:00 2023-05-12 11:00:00 Office Visit Agustín [facility] [id number] 350.1.13.10 4.2.7.2.686 [id number] [facility] 2023-05-07 00:00:2023-05-07 00:00:00 (TEL) STLMLC STLMLC [id number] [facility] 2023-05-05 09:20:00 2023-05-05 09:21:01 Outpatient JULITO BARRAZA HOWARD [facility] [id number] [facility] 2023-04-18 00:00:00 2023-04-18 00:00:00 Letter (Out) Fabián Cardiology - [facility] MEDICAL OFFICE BUILDING [id number] 350.1.13.10 4.2.7.2.686 [id number] [facility] 2023-04-17 00:00:00 2023-04-17 00:00:00 Orders Only Doctor Unassigned, [facility] [place] [id number] 350.1.13.10 4.2.7.2.686 [id number] [facility] 2023-04-01 00:00:00 2023-04-01 00:00:00 (TEL) STLMLC STLMLC [id number] [facility] 2023-03-13 00:00:00 2023-03-13 00:00:00 OFFICE VISIT ESTAB PT LEVEL 5 STLMLC STLMLC [id number] [facility] 2023-02-13 00:00:00 2023-02-13 00:00:00 OFFICE VISIT ESTAB PT LEVEL 4 STLMLC STLMLC [id number] [facility] 2023-01-30 00:00:00 2023-01-30 00:00:00 (TEL) STLMLC STLMLC [id number] [facility] 2023-01-09 00:00:00 2023-01-09 00:00:00 OFFICE VISIT NEW PT LEVEL 4 STLMLC STLMLC [id number] [facility] 2023-01-09 00:00:00 2023-01-09 00:00:00 Orders Only Doctor Unassigned, [facility] [place] [id number] 350.1.13.10 4.2.7.2.686 [id number] [facility] 2020-03-03 09:55:00 2020-03-03 12:07:00 Emergency Bushra Mars [facility] 1.2.840.114 350.1.13.10 4.2.7.2.686 [id number] [facility] 2020-03-03 09:55:00 2020-03-03 09:55:00 Emergency X BUSHRA MARS [facility] ERT [id number] [facility] 2019-09-11 11:27:00 2019-09-11 14:04:00 Emergency Yasmin Betts [facility] 1.2.840.114 350.1.13.10 4.2.7.2.686 [id number] [facility] 2019-09-11 11:27:00 2019-09-11 11:27:00 Emergency X YASMIN BETTS [facility] ERT [id number] [facility] 2018-09-13 11:09:00 2018-09-13 18:00:00 Departed Emergency Room 1 HERNESTO PINEDA [facility] [id number] [facility] Results Test Description Test Time Test Comments Results Result Comments Source MR CERVICAL SPINE WO CONTRAST 18:10:50 MR CERVICAL SPINE WO CONTRAST HISTORY: Neck pain, chronic ?The patient does have radiation of unpleasantsensations down the left arm. This seems to have gotten worse over the lastyear. COMPARISON: None. TECHNIQUE: Multiplanar multisequence MRI of the cervical spine withoutcontrast. FINDINGS: Motion artifacts degrade image quality. There is normal cervical lordosis. The vertebral bodies are normal inheight and in normal alignment. The cervical cord is normal in caliber anddemonstrates normal signal intensity. The background marrow signal is unremarkable. Disc spaces are maintained. C2-C3: No significant spinal canal stenosis or neural foraminal narrowing. C3-C4: Shallow posterior disc osteophyte complex. No significant spinalcanal stenosis or neural foraminal narrowing. C4-C5: No significant spinal canal stenosis or neural foraminal narrowing. C5-C6: Shallow posterior disc osteophyte complex, mild facet and uncinatearthropathy result in mild spinal canal stenosis and mild bilateral neuralforaminal narrowing C6-C7: Shallow posterior disc ossified complex result in mild spinal canalstenosis. No significant neural foraminal narrowing. C7-T1: No significant spinal canal stenosis or neural foraminal narrowing. The prevertebral soft tissues are unremarkable. [id number]:00* Test Item Value Reference Range Interpretation Comme nts NUCLEATED RBCS (test code = 81470-6) 0.0 /100 WBC'S See_Comment [Automated [employer] i[employer]] The system which generated this result transmitted reference range: 0.0 /100 WBC'S. The reference range was not used to interpret this result as normal/abnormal. ABSOLUTE EOSINOPHILS (test code = 79214-0) 0.15 K/UL See_Comment [Automated [employer]] The system which generated this result transmitted reference range: 0.00-0.50 K/UL. The reference range was not used to interpret this result as normal/abnormal. ABSOLUTE LYMPHOCYTES (test code = 73572-7) 1.83 K/UL See_Comment [Automated [employer]] The system which generated this result transmitted reference range: 1.00-4.00 K/UL. The reference range was not used to interpret this result as normal/abnormal. ABSOLUTE MONOCYTES (test code = 38422-6) 0.60 K/UL See_Comment [Automated [employer]] The system which generated this result transmitted reference range: 0.20-1.00 K/UL. The reference range was not used to interpret this result as normal/abnormal. ABSOLUTE NEUTROPHILS (test code = 53456-0) 3.49 K/UL See_Comment [Automated [employer]] The system which generated this result transmitted reference range: 1.50-7.50 K/UL. The reference range was not used to interpret this result as normal/abnormal. BASOPHILS (test code = 75824-2) 1.0 % EOSINOPHILS (test code = 55006-9) 2.4 % HEMATOCRIT (test code = 16407-8) 42.8 % See_Comment [Automated messa ge] The system which generated this result transmitted reference range: 34.0-45.0 %. The reference range was not used to interpret this result as normal/abnormal. HEMOGLOBIN (test code = 718-7) 14.6 G/DL See_Comment [Automated messa ge] The system which generated this result transmitted reference range: 11.5-15.5 G/DL. The reference range was not used to interpret this result as normal/abnormal. LYMPHOCYTES (test code = 86797-4) 29.8 % MCH (test code = 36487-5) 31.4 PG See_Comment [Automated messa ge] The system which generated this result transmitted reference range: 25.0-33.0 PG. The reference range was not used to interpret this result as normal/abnormal. MCHC (test code = 93966-8) 34.1 G/DL See_Comment [Automated messa ge] The system which generated this result transmitted reference range: 31.0-36.0 G/DL. The reference range was not used to interpret this result as normal/abnormal. MCV (test code = 24951-1) 92.0 fL See_Comment [Automated messa ge] The system which generated this result transmitted reference range: 80.0-99.0 fL. The reference range was not used to interpret this result as normal/abnormal. MONOCYTES (test code = 65389-7) 9.8 % NEUTROPHILS (test code = 38997-7) 56.8 % PLATELET COUNT (test code = 83812-7) 208 K/UL See_Comment [Automated messa ge] The system which generated this result transmitted reference range: 130-400 K/UL. The reference range was not used to interpret this result as normal/abnormal. RBC (test code = 69673-9) 4.65 M/UL See_Comment [Automated messa ge] The system which generated this result transmitted reference range: 3.80-5.40 M/UL. The reference range was not used to interpret this result as normal/abnormal. RDW (test code = 39166-4) 11.9 % See_Comment [Automated messa ge] The system which generated this result transmitted reference range: 11.5-15.0 %. The reference range was not used to interpret this result as normal/abnormal. WBC (test code = 01774-0) 6.1 K/UL See_Comment [Automated messa ge] The system which generated this result transmitted reference range: 3.5-11.0 K/UL. The reference range was not used to interpret this result as normal/abnormal. TSH RFLX FT4 AND [id number] 00:00:00* Test Item Value Reference Range Interpretation Comme nts TSH RFLX FT4 AND FT3 (test code = 80140-0) 0.553 UIU/ML See_Comment [Automated messa ge] The system which generated this result transmitted reference range: 0.400-4.100 UIU/ML. The reference range was not used to interpret this result as normal/abnormal. LIPID PANEL WITH REFLEX DIRECT [id number] 00:00:00* Test Item Value Reference Range Interpretation Comme nts CALC LDL CHOL (test code = 45558-7) 69 MG/DL See_Comment [Automated [employer] ge] The system which generated this result [...] code = 2085-9) 77 MG/DL See_Comment [Automated [employer] ge] The system which generated this result transmitted reference range: >39 MG/DL. The reference range was not used to interpret this result as normal/abnormal. RISK RATIO LDL/HDL (test code = 22665-7) 0.90 RATIO See_Comment [Automated message] The system [...] interpret this result as normal/abnormal. COMPREHENSIVE METABOLIC YKDOB4881-96-47 00:00:00* Test Item Value Reference Range Interpretation [...] result as normal/abnormal. CALCIUM (test code = 36767-9) 9.3 MG/DL See_Comment [Automated messa ge] The [...] as normal/abnormal. CALC GLOBULIN (test code = 89409-9) 2.0 G/DL See_Comment [Automated messa ge] The [...] normal/abnormal. eGFR (2020 CKD-EPI) (test code = 05376-7) 95 ML/MIN/1.73 See_Comment [Automated messa ge] The [...] code = 2951-2) 142 MEQ/L See_Comment [Automated messa ge] The system which generated this result transmitted reference range: 133-146 MEQ/L. The reference range was not used to interpret this result as normal/abnormal. 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 It is used under Emergency Use [...] clinically indicated. Lab Interpretation (test code = 82221-5) [facility] [id number] 16:16:00* Test Item Value Reference Range Interpretation Comme nts POCT PREG (test code = 1605) negative On board controls acceptable with C Line (test code = 3574) present POCT PREG LOT # (test code = 3575) [id number] POCT PREG TEST DATE ( test code = 3576) 10/10/2021 Lab Interpretation (test cod e = 32996-6) Normal [facility] Abdomen Xdzfiv2261-52-01 18:23:32No acute cardiopulmonary process. Nonobstructive bowel gas [...] suspiciouscalcification identified.IMPRESSIONNo acute cardiopulmonary process.Nonobstructive bowel gas pattern.[facility] Troponin H4197-56-57 17:47:00* Test Item Value Reference Range Interpretation Comme [facility] TROPONIN I (test code = 2151003316) 0.013 ng/mL See_Comment [Automated message] The system [...] biotin. ? Lab Interpretation (test code = 22310-1) Normal [facility] with Oudsfynsyjrt9625-12-27 17:39:00* Test Item Value Reference Range Interpretation Comme nts WBC (test code = 6690-2) See_Comment [Automated messa ge] The system which generated this result transmitted reference range: 4.30 - 11.10 10*3/?L. The reference range was not used to interpret this result as normal/abnormal. RBC (test code = 789-8) See_Comment [Automated messa ge] The system which [...] 34.8 g/dL 31.6-35.1 RDW-SD (test code = 67003-6) 43.0 fL 39-49.9 RDW-CV (test code = 788-0) 12.9 % 12-15.5 PLT (test code = 777-3) See_Comment [Automated messa ge] The system which generated this result transmitted reference range: 166 - 358 10*3/?L. The reference range was not used to interpret this result as normal/abnormal. MPV (test code = 42951-9) 11.7 fL 9.5-12.9 NRBC/100 WBC (test code = 7972129522) See_Comment [Automated [employer] ssage] The system which generated this result transmitted reference range: 0.0 - 10.0 /100 WBCs. The reference range was not used to interpret this result as normal/abnormal. NRBC x10^3 (test code = 8235450257) <0.01 See_Comment [Automated messa ge] The system which generated this result transmitted reference range: 10*3/?L. The reference range was not used to interpret this result as normal/abnormal. GRAN MAT (NEUT) % (test code = 770-8) 73.1 % IMM GRAN % (test code = 1294367057) 0.20 % LYMPH % (test code = 736-9) 17.1 % MONO % (test code = 5905-5) 8.2 % EOS % (test code = 713-8) 0.6 % BASO % (test code = 706-2) 0.8 % GRAN MAT x10^3(ANC) (test code = 8708083054) 6.47 10*3/uL 1.88-7.09 IMM GRAN x10^3 (test code = 4498418838) <0.03 0-0.06 LYMPH x10^3 (test code = 731-0) 1.51 10*3/uL 1.32-3.29 MONO x10^3 (test code = 742-7) 0.73 10*3/uL 0.33-0.92 EOS x10^3 (test code = 711-2) 0.05 10*3/uL 0.03-0.39 BASO x10^3 (test code = 704-7) 0.07 10*3/uL 0.01-0.07 Lab Interpretation (test code = 94205-3) [facility]normal [facility] 17:34:00* Test Item Value Reference Range Interpretation Comme nts [place] (test code = 6432679966) <0.2 0.6-1.2 L SHALOM (test code = SHALOM) Toxic Range: ? Greater than 1.2 mmol/L Lab Interpretation (test code = 98802-7) [facility]normal [facility] (ALB, T.PRO, BILI T, BU/BC, ALT, AST, ALK PHOS)2019-09-11 17:20:00* Test Item Value Reference Range Interpretation Comme nts TOTAL BILI (test code = 5210493134) 0.6 mg/dL 0.1-1.1 BILI UNCON (test code = 2331270767) 0.7 mg/dL 0.1-1.1 BILI CONJ (test code = 5892033412) 0.0 mg/dL 0-0.3 T PROTEIN (test code = 3724904514) 7.9 g/dL 6.3-8.2 ALBUMIN (test code = 8130155692) 4.9 g/dL 3.5-5 ALK PHOS (test code = 0023862441) 106 U/L 34-122 ALTv (test code = 1742-6) 70 U/L 5-35 H AST(SGOT) (test code = 3140407446) 85 U/L 13-40 H Lab Interpretation (test cod e = 85900-6) Abnormal [facility] Metabolic Panel (NA, K, CL, CO2, GLUCOSE, BUN, CREATININE, CA)2019-09-11 17:20:00* Test Item Value Reference Range Interpretation Comme nts NA (test code = 5063944020) 137 mmol/L 135-145 K (test code = 5621600886) 4.2 mmol/L 3.5-5 CL (test code = 5941121519) 105 mmol/L 98-108 CO2 TOTAL (test code = 2497743133) 26 mmol/L 23-31 AGAP (test code = 9654022902) 2-16 BUN (test code = 9746782337) 15 mg/dL 7-23 GLUCOSE (test code = 4542860236) 127 mg/dL 70-110 H CREATININE (test code = 7272971147) 0.55 mg/dL 0.5-1.04 CALCIUM (test code = 7350784092) 10.4 mg/dL 8.6-10.6 eGFR Calculation (Non-) (test code = 3921631256) mL/min/1.73m2 eGFR Calculation () (test code = 1913212940) mL/min/1.73m2 SHALOM (test code = SHALOM) Association [...] imaging tests). Lab Interpretation (test code = 60760-6) [facility]normal [facility] Qvmbz3565-95-15 17:20:00* Test Item Value Reference Range Interpretation Comme [facility] LIPASE (test code = 2192659001) 106 U/L 0-220 Lab Interpretation (test cod e = 45240-7) Normal [facility]regnancy Test, Sjjun6292-30-67 17:15:00* Test Item Value Reference Range Interpretation Comme nts PREG SERUM (test code = 6785670923) Negative SHALOM (test code = SHALOM) Less than 10 IU/L. ?If low titer or ectopic is suspected, resubmit specimen in 48-72 hours. [facility]entonCH[facility] SING[facility] ([facility]ABLE)2018-09-13 16:05:00[place] [address] PatientName: TATA GRAHAM MR #: [id number] : 1970 Age/Sex: 48/F Req #: [id number] Adm Physician: Ordered by: GRANT ALTMAN INCLINED RAILWAY OPERATOR Report #: [id number] Location: ER Room/Bed: Procedure: [id number] DX/CHEST SINGLE (PORTABLE) Exam Date: 09/13/18 Exam Time: 1514 REPORT STATUS: Signed EXAMINATION: CHEST SINGLE (PORTABLE) INDICATION: cough, rule out pneumonia [id number] COMPARISON: None FINDINGS: PA and lateral views TUBES and LINES: None. LUNGS: Lungs are well inflated. There is no evidence of pneumonia or pulmonary edema. PLEURA: Trace blunting of the right lateralcostophrenic angle. No pneumothorax. HEART AND MEDIASTINUM: The cardiomediastinal silhouette is unremarkable.. BONES AND SOFT TISSUES: No focal osseous lesions. Soft tissues are unremarkable. UPPER ABDOMEN: No free air under the diaphragm. IMPRESSION: Trace blunting of the right lateral costophrenic angle may be the result of developing pleural effusion. No infiltrates. Signed by: Dr. Celestina Vidales MD on 09/13/2018 4:07 PM Dictated By: CELESTINA VIDALES MD 1600 Transcribed By: BENI on 09/13/18 1609 COPY TO: GRANT ALTMAN [facility] ABDOMEN/PELVIS V3713-92-19 14:45:00[place] [address] PatientName: TATA GRAHAM MR #: [id number] : 1970 Age/Sex: 48/F Req #: [id number] Adm Physician: Ordered by: GRANT ALTMAN INCLINED RAILWAY OPERATOR Report #: [id number] Location: ER Room/Bed: Procedure: [id number] CT/CT ABDOMEN/PELVIS W Exam Date: 09/13/18 Exam Time: 1415 REPORT STATUS: Signed ADDENDUM #1 Subcentimeter air cyst in the right lower lobe. Signed by: Dr. Celestina Vidales MD on 09/13/2018 4:[address] Abdomen And Pelvis with Intravenous Contrast INDICATION: Nausea, vomiting upper abdominal pain, n/v/d, rule out colitis [id number] 1415 TECHNIQUE: Thin collimation axial images obtained [...] Right: Normal enhancement. No soft tissue mass. Nohydronephrosis. Left: Normal enhancement. No soft tissue mass. No hydronephrosis. Lymph Nodes: No enlarged abdominal or retroperitoneal lymph nodes.. Aorta: Normal in diameter with scattered calcific ations PELVIS FINDINGS: Bowel: Stomach: Normal. Small Bowel: [...] post cholecystectomy and hysterectomy. 3. Pancreas divisum. 4.Steatosis. Signed by: Dr. Celestina Vidales MD on 09/13/2018 2:49 PM Dictated By: CELESTINA VIDALES MD 1606 Transcribed By: BENI on 09/13/18 1449 COPY TO: GRANT ALTMAN NPSodium Voveo4315-19-35 12:25:00* Test Item Value Reference Range Interpretation Comme nts Sodium Level (test code = 2951-2) 139 136-145 [facility] Elbus0917-50-65 12:25:00* Test Item Value Reference Range Interpretation Comme nts Potassium Level (test code = 2823-3) 3.3 3.5-5.1 L [facility] HospitalChloride Eabvk9591-21-45 12:25:00* Test Item Value Reference Range Interpretation Comme nts Chloride Level (test code = 2075-0) 103 98-107 [facility] HospitalCarbon Dioxide Nhtbi9916-34-12 12:25:00* Test Item Value Reference Range Interpretation Comme nts Carbon Dioxide Level (test c ode = 8-9) 22 22-29 [facility] HospitalAnion Sph9574-12-61 12:25:00* Test Item Value Reference Range Interpretation Comme nts Anion Gap (test code = 38032-5) 17.3 8-16 H [facility] HospitalBlood Urea Yyvuldsw1550-62-40 12:25:00* Test Item Value Reference Range Interpretation Comme nts Blood Urea Nitrogen (test co de = 3094-0) 12 7-26 [facility] HospitalCreatinine2019-08-04 12:25:00* Test Item Value Reference Range Interpretation Comme nts Creatinine (test code = 2160-0) 0.78 0.57-1.11 [facility] HospitalBUN/Creatinine Ekcve4079-44-60 12:25:00* Test Item Value Reference Range Interpretation Comme [facility] BUN/Creatinine Ratio (test c ode = 3097-3) 15 6-25 [facility] HospitalEstimat Glomerular Filtration Dapg2696-66-42 12:25:00* Test Item Value Reference Range Interpretation Comme nts Estimat Glomerular Filtratio n Rate (test code = 921551895) > 60 >60 Ranges were taken from the National Kidney Disease Education Program and the National Kidney Foundation literature.Reference ranges:60 or greater: Qwxcsq07- 59 (for 3 consecutive months): Chronic kidney disease 15 or less: Kidney failure [facility] HospitalGlucose Eazgf7771-28-01 12:25:00* Test Item Value Reference Range Interpretation Comme [facility] Glucose Level (test code = EOZ8063) 143 74-118 H [facility] HospitalCalcium Zzmab8644-42-04 12:25:00* Test Item Value Reference Range Interpretation Comme nts Calcium Level (test code = 01813-2) 10.1 8.4-10.2 [facility] HospitalMagnesium Dpili5659-73-79 12:25:00* Test Item Value Reference Range Interpretation Comme nts Magnesium Level (test code = 79001-0) 2.3 1.3-2.1 H [facility] HospitalTotal Tlxddknsb6362-92-51 12:25:00* Test Item Value Reference Range Interpretation Comme nts Total Bilirubin (test code = 1975-2) 0.7 0.2-1.2 [facility] HospitalAspartate Amino Transf (AST/SGOT)2018-09-13 12:25:00* Test Item Value Reference Range Interpretation Comme nts Aspartate Amino Transf (AST/ SGOT) (test code = Aspartate Amino Transf (AST/SGOT)) 24 5-34 [facility] HospitalAlanine Aminotransferase (ALT/SGPT)2018-09-13 12:25:00* Test Item Value Reference Range Interpretation Comme nts Alanine Aminotransferase (AL T/SGPT) (test code = 1742-6) 24 0-55 [facility] HospitalTotal Wgmajzn7288-79-21 12:25:00* Test Item Value Reference Range Interpretation Comme nts Total Protein (test code = 2885-2) 7.2 6.5-8.1 [facility] HospitalAlbumin2019-08-04 12:25:00* Test Item Value Reference Range Interpretation Comme nts Albumin (test code = 1751-7) 4.2 3.5-5.0 [facility] HospitalGlobulin2019-08-04 12:25:00* Test Item Value Reference Range Interpretation Comme nts Globulin (test code = 35137-9) 3.0 2.3-3.5 [facility] HospitalAlbumin/Globulin Jqvft8755-25-12 12:25:00* Test Item Value Reference Range Interpretation Comme nts Albumin/Globulin Ratio (test code = 1759-0) 1.4 0.8-2.0 [facility] HospitalAlkaline Caiwjakfwyd3531-46-48 12:25:00* Test Item Value Reference Range Interpretation Comme nts Alkaline Phosphatase (test c ode = 6768-6) 81 40-150 [facility] HospitalAmylase Izdat1634-63-35 12:25:00* Test Item Value Reference Range Interpretation Comme nts Amylase Level (test code = 1798-8) 84 25-125 [facility] HospitalLipase2019-08-04 12:25:00* Test Item Value Reference Range Interpretation Comme nts Lipase (test code = 3040-3) 18 8-78 [facility] HospitalUrine Sfeud2543-78-87 11:53:00* Test Item Value Reference Range Interpretation Comme nts Urine Color (test code = 5778-6) YELLOW YELLOW [facility] HospitalUrine Ylnvkoi3680-15-76 11:53:00* Test Item Value Reference Range Interpretation Comme nts Urine Clarity (test code = 01812-3) SL CLOUDY CLEAR [facility] HospitalUrine Specific Lfiqbkn0041-86-18 11:53:00* Test Item Value Reference Range Interpretation Comme nts Urine Specific [place] (test code = 5811-5) 1.015 1.010-1.025 [facility] HospitalUrine sZ5119-17-84 11:53:00* Test Item Value Reference Range Interpretation Comme nts Urine pH (test code = 86320-4) 7 5-7 [facility] HospitalUrine Leukocyte Kqzrzshd2670-84-95 11:53:00* Test Item Value Reference Range Interpretation Comme nts Urine Leukocyte Esterase (te st code = 5799-2) NEGATIVE NEGATIVE [facility] HospitalUrine Kxffulb2044-37-06 11:53:00* Test Item Value Reference Range Interpretation Comme nts Urine Nitrite (test code = 60418-1) NEGATIVE NEGATIVE [facility] HospitalUrine Geiyycm0080-29-55 11:53:00* Test Item Value Reference Range Interpretation Comme nts Urine Protein (test code = 5804-0) 2+ NEGATIVE H [facility] HospitalUrine Glucose (UA)2018-09-13 11:53:00* Test Item Value Reference Range Interpretation Comme nts Urine Glucose (UA) (test cod e = 2349-9) NEGATIVE NEGATIVE [facility] HospitalUrine Dmqkaha2451-59-00 11:53:00* Test Item Value Reference Range Interpretation Comme nts Urine Ketones (test code = 75170-4) NEGATIVE NEGATIVE [facility] HospitalUrine Rabqmsplmjsf8377-97-75 11:53:00* Test Item Value Reference Range Interpretation Comme nts Urine Urobilinogen (test cod e = 89932-3) 0.2 0.2-1 [facility] HospitalUrine Nvydwzkqk3457-84-51 11:53:00* Test Item Value Reference Range Interpretation Comme nts Urine Bilirubin (test code = 1978-6) NEGATIVE NEGATIVE [facility] HospitalUrine Kyqrq4365-00-39 11:53:00* Test Item Value Reference Range Interpretation Comme nts Urine Blood (test code = 88641-9) TRACE NEGATIVE H [facility] HospitalUrine SIL3683-33-96 11:53:00* Test Item Value Reference Range Interpretation Comme nts Urine WBC (test code = 5821-4) 11-20 0-5 H [facility] HospitalUrine DZC9234-16-18 11:53:00* Test Item Value Reference Range Interpretation Comme nts Urine RBC (test code = 80005-6) 11-20 0-5 H [facility] HospitalUrine Cgjvgwaw7010-19-09 11:53:00* Test Item Value Reference Range Interpretation Comme nts Urine Bacteria (test code = 99709-7) FEW NONE [facility] HospitalUrine Epithelial Amvmo9014-12-30 11:53:00* Test Item Value Reference Range Interpretation Comme nts Urine Epithelial Cells (test code = 68023-8) FEW NONE [facility] HospitalUrine Xebv3029-56-93 11:53:00* Test Item Value Reference Range Interpretation Comme nts Urine Test (test c ode = 2106-3) NEGATIVE NEGATIVE [facility] HospitalWhite Blood Ypxcp9806-61-64 11:45:00* Test Item Value Reference Range Interpretation Comme nts White Blood Count (test code = 6690-2) 18.82 4.8-10.8 H [facility] HospitalRed Blood Xrwrn8919-40-74 11:45:00* Test Item Value Reference Range Interpretation Comme nts Red Blood Count (test code = 789-8) 5.30 3.6-5.1 H [facility] HospitalHemoglobin2019-08-04 11:45:00* Test Item Value Reference Range Interpretation Comme nts Hemoglobin (test code = 20204-1) 16.2 12.0-16.0 H [facility] HospitalHematocrit2019-08-04 11:45:00* Test Item Value Reference Range Interpretation Comme nts Hematocrit (test code = 4544-3) 46.1 34.2-44.1 H [facility] HospitalMean Corpuscular Wmuxqi9204-32-44 11:45:00* Test Item Value Reference Range Interpretation Comme nts Mean Corpuscular Volume (martha t code = 787-2) 87.0 81-99 [facility] HospitalMean Corpuscular Eogjnmmjau8499-21-13 11:45:00* Test Item Value Reference Range Interpretation Comme nts Mean Corpuscular Hemoglobin (test code = 785-6) 30.6 28-32 [facility] HospitalMean Corpuscular Hemoglobin Tsynhyx9549-01-27 11:45:00* Test Item Value Reference Range Interpretation Comme nts Mean Corpuscular Hemoglobin Concent (test code = 786-4) 35.1 31-35 H [facility] HospitalRed Cell Distribution Mdqxw1650-00-36 11:45:00* Test Item Value Reference Range Interpretation Comme [facility] Red Cell Distribution Width (test code = 21560-5) 13.5 11.7-14.4 [facility] HospitalPlatelet Lenfk4375-88-61 11:45:00* Test Item Value Reference Range Interpretation Comme nts Platelet Count (test code = 777-3) 318 140-360 [facility] HospitalNeutrophils (%) (Auto)2018-09-13 11:45:00* Test Item Value Reference Range Interpretation Comme nts Neutrophils (%) (Auto) (test code = 90034-9) 81.5 38.7-80.0 H [facility] HospitalLymphocytes (%) (Auto)2018-09-13 11:45:00* Test Item Value Reference Range Interpretation Comme nts Lymphocytes (%) (Auto) (test code = 736-9) 9.7 18.0-39.1 L [facility] HospitalMonocytes (%) (Auto)2018-09-13 11:45:00* Test Item Value Reference Range Interpretation Comme nts Monocytes (%) (Auto) (test c ode = 5905-5) 7.9 4.4-11.3 [facility] HospitalEosinophils (%) (Auto)2018-09-13 11:45:00* Test Item Value Reference Range Interpretation Comme nts Eosinophils (%) (Auto) (test code = 713-8) 0.0 0.0-6.0 [facility] HospitalBasophils (%) (Auto)2018-09-13 11:45:00* Test Item Value Reference Range Interpretation Comme nts Basophils (%) (Auto) (test c ode = 706-2) 0.3 0.0-1.0 [facility] HospitalIM GRANULOCYTES %2018-09-13 11:45:00* Test Item Value Reference Range Interpretation Comme nts IM GRANULOCYTES % (test code = IM GRANULOCYTES %) 0.6 0.0-1.0 [facility] HospitalNeutrophils # (Auto)2018-09-13 11:45:00* Test Item Value Reference Range Interpretation Comme nts Neutrophils # (Auto) (test c ode = 751-8) 15.3 2.1-6.9 H [facility] HospitalLymphocytes # (Auto)2018-09-13 11:45:00* Test Item Value Reference Range Interpretation Comme nts Lymphocytes # (Auto) (test c ode = 09638-5) 1.8 1.0-3.2 [facility] HospitalMonocytes # (Auto)2018-09-13 11:45:00* Test Item Value Reference Range Interpretation Comme nts Monocytes # (Auto) (test code = 742-7) 1.5 0.2-0.8 H [facility] HospitalEosinophils # (Auto)2018-09-13 11:45:00* Test Item Value Reference Range Interpretation Comme nts Eosinophils # (Auto) (test c ode = 711-2) 0.0 0.0-0.4 [facility] HospitalBasophils # (Auto)2018-09-13 11:45:00* Test Item Value Reference Range Interpretation Comme nts Basophils # (Auto) (test code = 704-7) 0.1 0.0-0.1 [facility] HospitalAbsolute Immature Granulocyte (gdpy3745-87-42 11:45:00* Test Item Value Reference Range Interpretation Comme nts Absolute Immature Granulocyt e (auto (test code = Absolute Immature Granulocyte (auto) 0.12 0-0.1 H [facility] Notes Date/Time Note Provider Source 2023-07-23 08:29:05 7873-07-64B38:29:05F ormatting of this note might be different from the original.Letter sent 54565-8Leyxkuxpt encounter MegvXH3976-97-22X93:31:05Telepho ne encounter NoteTXT1.2.840.018086.1.13.104.2 .7.2.238194|[id number] e for patient hved88102-2PdioMRPRKXICDFWEumgip joyce C-CDA narrative [id number] A Cruz [address] AuxcFcqynkabrVznmlnmdrUJKJ962557 0454ALVQIENUOTMBMKWVIVWQRB4655-3 08:31:051.2.840.079667.1.72 .3.15|1.2.840.978736.1.13.104.2. 7.2.727879_[id number] Savanah Keating RN [facility] 2023-07-22 09:06:46 4581-67-91I43:06:46F ormatting of this note is different from the original.Attempted to call pt. No answer. Phone does not ring. Will try again laterAdelia Randolph MD07/18/2023 5:59 PM CDT Back to [facility] let the patient know that I reviewed her echocardiogram and it appears within normal limits. The heart pumping function (EF) is normal and the valves appear normal as well. No changes needed at this time. [id number] encounter [id number]:50Telepho ne encounter [id number] lucien for patient [id number] joyce C-CDA narrative text[address] [id number] [facility]"
[2023-08-13 09:52] LABS: PT Prothrombin Time 14.1 SECONDS (9.4-12.5); Protime INR 1.29
[2023-08-13 09:53] LABS: Absolute Eosinophils 0.1 K/uL (0-0.5); Absolute Lymphocytes (CBC) 1.1 K/uL (0.7-4.9); Absolute Monocytes 0.6 K/uL (0.1-1.3); Absolute Neutrophil 3.2 K/uL (1.8-8.0); Basophils % 0.8 % (0-1.3); Eosinophils % 2.3 % (0-4.4); Hematocrit 38.6 % (36.0-45.0); Lymphocytes % 21.2 % (15.3-44.8); MCH 31.1 pg (27.0-35.0); MCHC 33.7 g/dL (32.0-36.0); MCV 92.3 fL (80-100); MPV 8.4 fL (7.6-11.3); Monocytes % 11.8 % (3.3-12.3); Neutrophils % 63.9 % (41.7-73.7); Nucleated Red Blood Cells % 0.1 % (0-0); Platelets 162 thou/uL (152-406); RBC Red Blood Cell Count 4.18 M/uL (3.86-4.86); Red Cell Distribution Width 13.8 % (12.1-15.2)
[2023-08-13 09:59] LABS: SARS-CoV-2 Antigen CONTROL BLUE LINE VIS/BG OK; SARS-CoV-2 Antigen Rapid Res Negative (Negative)
--- NOTE | 2023-08-13 10:04 | RAD REPORT ---
EXAM DESCRIPTION: US - Extremity Venous Uni Ltd - 08/13/2023 9:55 am CLINICAL HISTORY: Swelling COMPARISON: None. TECHNIQUE: Real-time sonographic evaluation of the right lower extremity deep venous system was perf ormed. FINDINGS: Normal compressibility, flow augmentation, phasic flow and spontaneous flow is identified in the right lower extremity deep venous system. No intraluminal filling defects seen. IMPRESSION: No DVT in the right lower extremity.
--- NOTE | 2023-08-13 10:44 | ER ---
Nurse's Notes [facility] Name: Tata Friedman Age: 53 yrs Sex: Female : 1970 Arrival Date: 08/13/2023 Time: 08:55 Bed 8 Private MD: Diagnosis: Cellulitis right lower extremity Presentation: 08/12 09:06 Chief complaint: Patient states: [place] leg swelling and redness X 2 days her right foot iw is swollen and she has had a headache X 2 days, also there was some blood in her underwear yesterday and she does not get a period anymore , and her BP has been running high. 09:06 Acuity: CAROLINE 3 iw 10:52 Coronavirus screen: At this time, the client does not indicate any symptoms associated iw with coronavirus-19. Ebola Screen: No symptoms or risks identified at this time. Initial Sepsis Screen: Does the patient meet any 2 criteria? No. Patient's initial sepsis screen is negative. Does the patient have a suspected source of infection? No. Patient's initial sepsis screen is negative. Risk Assessment: Do you want to hurt yourself or someone else? Patient reports no desire to harm self or others. Onset of symptoms was August 13, 2023. 10:52 Method Of Arrival: Ambulatory iw Triage Assessment: 09:10 Headache History: The patient has had previous headaches and this one is similar to bp previous episodes. General: Appears in no apparent distress. Behavior is cooperative, appropriate for age, anxious. Pain: Complains of pain in right foot Pain currently is 4 out of 10 on a pain scale. Pain began gradually, Also complains of no other associated symptoms. EENT: No deficits noted. Neuro: Level of Consciousness is awake, alert, obeys commands, Oriented to Appropriate for age. Cardiovascular: No deficits noted. Respiratory: No deficits noted. GI: No signs and/or symptoms were reported involving the gastrointestinal system. : No signs and/or symptoms were reported regarding the genitourinary system. Derm: No deficits noted. Musculoskeletal: No deficits noted. 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 - Infectious Disease History:: Denies. - Social history:: Smoking status: . Screenin:52 [facility] ED Fall Risk Assessment (Adult) History of falling in the last 3 months, iw including since admission No falls in past 3 months (0 pts) Confusion or Disorientation No (0 pts) Intoxicated or Sedated No (0 pts). [facility] ED Fall Risk Assessment (Adult) Impaired Gait No (0 pts) Mobility Assist Device Used No (0 pt) Altered Elimination No (0 pt) Score/Fall Risk Level 0 - 2 = Low Risk. Abuse screen: Denies threats or abuse. Denies injuries from another. Nutritional screening: No deficits noted. Tuberculosis screening: No symptoms or risk factors identified. Assessment: 10:51 Reassessment: Patient appears in no apparent distress at this time. Patient and/or iw family updated on plan of care and expected duration. Pain level reassessed. Patient is alert, oriented x 3, equal unlabored respirations, skin warm/dry/pink. Vital Signs: 09:07 BP 131 / 87; Pulse 92; Resp 16; Temp 97.4; Pulse Ox 97% on R/A; iw ED Course: 08:58 Patient arrived in ED. im 09:06 Masha Jason MD is Attending Physician. sp3 09:07 Triage completed. iw 09:10 Chemo Saxena, RN is Primary Nurse. bp 09:16 Arm band placed on. iw 09:40 SARS RAPID Sent. ko1 09:40 Flu Sent. ko1 09:40 Basic Metabolic Panel Sent. ko1 09:40 CBC with Diff Sent. ko1 09:40 NT PRO-BNP Sent. ko1 09:40 PT-INR Sent. ko1 09:40 Initial lab(s) drawn, by me, sent to lab. COVID swab sent to lab. Flu and/or RSV swab ko1 sent to lab. Inserted saline lock: 20 gauge in right wrist, using aseptic technique. Blood collected. 09:57 US Extremity Venous Unilateral Ltd In Process Unspecified. EDMS 10:52 Patient has correct armband on for positive identification. Provided Education on: . iw 10:52 No provider procedures requiring assistance completed. IV discontinued, intact, iw bleeding controlled, No redness/swelling at site. Pressure dressing applied. Administered Medications: No medications were administered Medication: 10:53 VIS not applicable for this client. iw Outcome: 10:44 Discharge ordered by . sp3 10:52 Discharged to home ambulatory, iw 10:52 Condition: good 10:52 Discharge instructions given to patient, Instructed on discharge instructions, follow up and referral plans. medication usage, Demonstrated understanding of instructions, follow-up care, medications, Prescriptions given X 3, 10:53 Patient left the ED. iw Signatures: Dispatcher [employer] EDBeata Hanna RN RN iw Chemo Saxena RN RN Masha Edwards MD MD sp3 Kimberli Perkins RN RN ko1 Lisa Dooley Corrections: (The following items were deleted from the chart) 09:16 09:07 BP 131 / 87; Pulse 92bpm; Resp 16bpm; Pulse Ox 97% RA; iw iw
--- NOTE | 2023-08-13 10:44 | EDPHYS ---
Physician Documentation [facility] Name: Tata Friedman Age: 53 yrs Sex: Female : 1970 Arrival Date: 08/13/2023 Time: 08:55 Bed 8 Private MD: ED Physician Masha Jason HPI: 08/12 10:41 This 53 yrs old Female presents to ER via Unassigned with complaints of High Blood sp3 Pressure, Headache, Leg Swelling, Shakes. 10:41 53-year-old female with extensive psychiatric history including bipolar disease, PTSD, sp3 schizophrenia and former drug addiction now presents to the ED with chief complaint right lower extremity swelling and slight red rash. Patient also has body aches and general malaise/fatigue. She denies any headache, fever, URI symptoms, neck pain, cough, shortness of breath, chest pain, abdominal pain, vomiting, diarrhea, trauma, known sick contacts, travel history, continue drug use, or any other signs or symptoms on ROS at this time.. 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 - Infectious Disease History:: Denies. - Social history:: Smoking status: . ROS: 10:42 Constitutional: Negative for fever, chills, and weight loss, Eyes: Negative for injury, sp3 pain, redness, and discharge, ENT: Negative for injury, pain, and discharge, Neck: Negative for injury, pain, and swelling, Cardiovascular: Negative for chest pain, palpitations, and edema, Respiratory: Negative for shortness of breath, cough, wheezing, and pleuritic chest pain, Abdomen/GI: Negative for abdominal pain, nausea, vomiting, diarrhea, and constipation, Back: Negative for injury and pain, Neuro: Negative for headache, weakness, numbness, tingling, and seizure, Allergy/Immunology: Negative for hives, rash, and allergies, Endocrine: Negative for neck swelling, polydipsia, polyuria, polyphagia, and marked weight changes, Hematologic/Lymphatic: Negative for swollen nodes, abnormal bleeding, and unusual bruising, 10:42 All other systems are negative, Exam: 10:42 Constitutional: This is a well developed, well nourished patient who is awake, alert, sp3 and in no acute distress. Head/Face: Normocephalic, atraumatic. Eyes: Pupils equal round and reactive to light, extra-ocular motions intact. Lids and lashes normal. Conjunctiva and sclera are non-icteric and not injected. Cornea within normal limits. Periorbital areas with no swelling, redness, or edema. ENT: Nares patent. No nasal discharge, no septal abnormalities noted. External auditory canals are clear. Oropharynx with no redness, swelling, or masses, exudates, or evidence of obstruction, uvula midline. Mucous membranes moist. Neck: Trachea midline, no thyromegaly or masses palpated, and no cervical lymphadenopathy. Supple, full range of motion without nuchal rigidity, or vertebral point tenderness. No Meningismus. Chest/axilla: Normal chest wall appearance and motion. Nontender with no deformity. No lesions are appreciated. Cardiovascular: Regular rate and rhythm with a normal S1 and S2. No gallops, murmurs, or rubs. Normal PMI, no JVD. No pulse deficits. Respiratory: Lungs have equal breath sounds bilaterally, clear to auscultation and percussion. No rales, rhonchi or wheezes noted. No increased work of breathing, no retractions or nasal flaring. Abdomen/GI: Soft, non-tender, with normal bowel sounds. No distension or tympany. No guarding or rebound. No evidence of tenderness throughout. Back: No spinal tenderness. No costovertebral tenderness. Full range of motion. Neuro: Awake and alert, GCS 15, oriented to person, place, time, and situation. Cranial nerves II-XII grossly intact. Motor strength 5/5 in all extremities. Sensory grossly intact. Cerebellar exam normal. Normal gait. Psych: Awake, alert, with orientation to person, place and time. Behavior, mood, and affect are within normal limits. 10:42 Musculoskeletal/extremity: Right lower extremity swelling 2+ from the wu down with slight overlying erythema extending into the foot and toe region.. Vital Signs: 09:07 BP 131 / 87; Pulse 92; Resp 16; Temp 97.4; Pulse Ox 97% on R/A; iw MDM: 09:06 Patient medically screened. sp3 10:43 Data reviewed: vital signs, nurses notes, lab test result(s), radiologic studies. ED sp3 course: 53-year-old female with right lower extremity swelling, skin erythema and general fatigue and malaise. Consider cellulitis, DVT, viral illness, dehydration, among others. Ultrasound negative for DVT. Labs all within normal limits. Will treat with clinical cellulitis of the right lower extremity and discharged with PCP follow-up.. 08/12 09:26 Order name: Basic Metabolic Panel; Complete Time: 10:40 sp3 08/12 09:26 Order name: CBC with Diff; Complete Time: 10:07 sp3 08/12 09:26 Order name: NT PRO-BNP; Complete Time: 10:40 sp3 08/12 09:26 Order name: PT-INR; Complete Time: 10:07 sp3 08/12 09:26 Order name: Flu; Complete Time: 10:40 sp3 08/12 09:26 Order name: SARS RAPID; Complete Time: 10:07 sp3 08/12 09:26 Order name: US Extremity Venous Unilateral Ltd; Complete Time: 10:07 sp3 08/12 09:26 Order name: IV Saline Lock; Complete Time: 09:40 sp3 08/12 09:26 Order name: Labs collected and sent; Complete Time: 09:40 sp3 Administered Medications: No medications were administered Disposition Summary: 08/13/23 10:44 Discharge Ordered Notes: Location: Home sp3 Condition: Stable sp3 Diagnosis - Cellulitis right lower extremity sp3 Followup: sp3 - With: Private Physician - When: Upon discharge from the Emergency Department - Reason: Continuance of care Discharge Instructions: - Discharge Summary Sheet sp3 - Cellulitis, Adult sp3 Forms: - Medication Reconciliation Form sp3 - Antibiotic Education sp3 - Prescription Opioid Use sp3 - Patient Portal Instructions sp3 - Leadership Thank You Letter sp3 Prescriptions: - Clindamycin HCl 300 mg Oral Capsule - take 1 capsule ORAL route every 6 hours for 10 days; 40 capsule; Refills: 0, sp3 Product Selection Permitted - Diclofenac Sodium 75 mg Oral Tablet Sustained Release - take 1 tablet ORAL route 2 times per day; 30 tablet; Refills: 0, Product sp3 Selection Permitted - Bactrim DS 800-160 mg Oral Tablet - take 1 tablet ORAL route every 12 hours for 7 days; 14 tablet; Refills: 0, sp3 Product Selection Permitted Signatures: Dispatcher [employer] Beata Owusu RN RN Masha Sanchez MD MD sp3 Corrections: (The following items were deleted from the chart) :27 09:27 Extremity Venous Uni Ltd+[email or web address].BRZ ordered. JOHNIE JETT
== END 2023-08-13 10:53 | disposition home or self-care (01) ==
LOC: ER 08:55
DX: L03.115 Cellulitis of right lower limb (principal); Z11.52 Encounter for screening for COVID-19
CPT/HCPCS: 36415; 80048; 83880; 85025; 85610; 87804; 87811; 93971; 99284